=== PATIENT | female | born 1965 | race Caucasian/White ===

== ENCOUNTER 2017-08-19 17:48 | Emergency (ER) | payer SELFPAY ==
[~2017-08-19] VITALS: Ht 165.1 cm; Wt 76.7 kg
[~2017-08-19 17:48] MED LIST: ASPI325T PO; ATOR10 PO; BACL10TA PO; CLON1 PO; CLOP75 PO; DILA8TAB4 PO; MACR100C PO; METH10TA PO; METO50CR PO; PROM25TA5 PO; ZOFR4TAB3 PO
[2017-08-19 17:52] VITALS: BP 172/78; PULSE 99; RESP 20; TEMP 100.3; O2SAT 98
[2017-08-19] MEDS ORDERED: SERO50TA PO (18:13)
[2017-08-19] MEDS ORDERED: GABA300C5 PO (18:13)
[2017-08-19] MEDS ORDERED: LISI-515 PO ×2 (18:13→18:43)
[2017-08-19] MEDS ORDERED: TRAM50TA PO (18:13)
[2017-08-19] MEDS ORDERED: VIST50CA PO (18:13)
[2017-08-19] MEDS ORDERED: WELLTAB39 PO (18:13)
[2017-08-19 18:32] VITALS: BP 99/71; PULSE 88; RESP 22; O2SAT 97
[2017-08-19] MEDS ORDERED: AMOX500T PO (18:43)
--- NOTE | 2017-08-19 18:45 | PD ---
HPI . The patient's chief complaint to me was high blood pressure Chief Complaint: Anxiety Time Seen by Provider: 18:34 Travel History International Travel<30 days: No Contact w/Intl Traveler<30days: No Traveled to known affect area: No History of Present Illness HPI This patient presents with multiple complaints. It is actually very difficult to follow her story. She has very pressured speech and flight of ideas as does her sister who is here with her. The patient reports that her son committed suicide 10 weeks ago. She states that she is scheduled to start a new job tomorrow. She states that she was seen at [facility] today and was told that her blood pressure was elevated at 140/90. The patient reports that she is on lisinopril for hypertension but that she does not currently have a primary care physician and does not currently have a prescription for lisinopril. She is requesting a refill for this. In addition, the patient is complaining with purulent rhinorrhea and a low- grade fever. She denies any significant nasal congestion. Lastly, the patient states that she's got a bad back. She states that she has her MRI results of her to prove this. She states that she needs a prescription for tramadol for her chronic back pain. The patient reports that she is concerned about taking too many nonsteroidal anti-inflammatory agents because of her hepatitis C. I am unable to determine whether or not there are any modifying factors. She is reporting 8/10 pain in her head. PFSH Past Medical History Autoimmune Disease: No Blood Disorders: No Anxiety: Yes Depression: Yes Heart Rhythm Problems: No Cancer: No Cardiac Catheterization: Yes Cardiovascular Problems: Yes High Cholesterol: Yes Chemotherapy: No Chest Pain: Yes Congestive Heart Failure: No Cerebrovascular Accident: Yes Coronary Artery Disease: Yes Diabetes: No Diminished Hearing: No Endocrine: No Gastrointestinal Disorders: Yes (ILEUS) GERD: Yes Genitourinary: Yes Hiatal Hernia: No Heparin Induced Thrombocytopen: No Hypertension: Yes Immune Disorder: No Implanted Vascular Access Dvce: No Kidney Stones: Yes Musculoskeletal: Yes (BULGING DISK, CHRONIC BACK PAIN, SCOLIOSIS) Neurologic: Yes Psychiatric: Yes Reproductive: No Respiratory: No Integumentary: Yes (CELLULITIS OF LEFT ANKLE) Migraines: Yes Radiation Therapy: No Renal Failure: No Thyroid Disease: No Ulcer: Yes (PEPTIC ) Tetanus Vaccination: > 5 Years Influenza Vaccination: Yes PNEUMOCCOCAL Vaccine (Year): 2 ?: Not Menopausal: Yes : 2 Para: 2 Past Surgical History Abdominal Surgery: Yes (CHOLECYSTECTOMY, APPENDECTOMY) Appendectomy: Yes Cardiac Surgery: No Cholecystectomy: Yes Coronary Artery Bypass Graft: No Ear Surgery: No Endocrine Surgery: No Eye Surgery: No Gynecologic Surgery: Yes (HYSTERECTOMY, OOPHRECTOMY) Hysterectomy: Yes Oral Surgery: Yes (TONSILLECTOMY) Thoracic Surgery: No Tonsillectomy: Yes Other Surgery: Yes (INFARCTION TO SPLEEN) Family History Family Myocardial Infarction: Yes Social History Alcohol Use: Yes Tobacco Use: Yes (1 PPD) Substance Use: No (HX OF) Allergies-Medications (Allergen,Severity, Reaction): Coded Allergies: Iodinated Contrast- Oral and IV Dye (Unverified Allergy, Severe, Anaphylaxis, 08/19/17) codeine (Unverified Allergy, Severe, RASH, 08/19/17) morphine (Unverified Allergy, Intermediate, Rash, 08/19/17) Reported Meds & Prescriptions Reported Meds & Active Scripts Active Reported Seroquel (Quetiapine Fumarate) 50 Mg Tab 50 Mg PO HS Vistaril (Hydroxyzine Pamoate) 50 Mg Cap 50 Mg PO TID Gabapentin 300 Mg Cap 300 Mg PO TID Wellbutrin Xl 24 HR (Bupropion HCl) 300 Mg Tab 300 Mg PO DAILY Tramadol (Tramadol HCl) 50 Mg Tab 50 Mg PO Q6H PRN Lisinopril 20 Mg Tab 20 Mg PO DAILY Review of Systems ROS Limitations: Poor Historian Except as stated in HPI: all other systems reviewed are Neg General / Constitutional: Positive: Fever HENT: Positive: Headaches, Rhinorrhea (purulent) Musculoskeletal: Positive: Pain (chronic back pain) Psychiatric: Positive: Anxiety, Depression Physical Exam Exam Limitations: Poor Historian, Other: (psychomotor agitation) Narrative GENERAL: This patient cannot be still. She is jumping from one subject to another when talking to me. Her sister is about the same. SKIN: warm/dry. HEAD: Normocephalic. Atraumatic. EYES: Pupils equal and round. No scleral icterus. No injection or drainage. ENT: No nasal bleeding or discharge. Mucous membranes pink and moist. NECK: Trachea midline. Full range of motion without pain.. CARDIOVASCULAR: Regular rate and rhythm. Heart sounds are normal. RESPIRATORY: No accessory muscle use. Clear to auscultation. Breath sounds equal bilaterally. GASTROINTESTINAL: Abdomen soft. Nontender. Bowel sounds present. Nondistended. MUSCULOSKELETAL: No obvious deformities. NEUROLOGICAL: Awake and alert. No obvious cranial nerve deficits. Motor grossly within normal limits. Normal speech. PSYCHIATRIC: Appropriate mood and affect; insight and judgment normal. Data Data Last Documented VS Vital Signs Date Time Temp Pulse Resp B/P (MAP) Pulse Ox O2 Delivery O2 Flow Rate FiO2 08/19/17 18:32 88 22 99/71 (80) 97 Room Air 08/19/17 17:52 100.3 MDM Medical Decision Making Medical Screen Exam Complete: Yes Emergency Medical Condition: Yes Differential Diagnosis Differential diagnosis includes but is not limited to influenza, upper respiratory infection, bronchitis, pneumonia Differential diagnosis includes but is not limited to muscular low back pain, DDD, spinal stenosis, epidural abscess, sciatica, kidney infection or stone. My differential diagnosis of high blood pressure includes but is not limited to "white coat syndrome," anxiety, essential hypertension, hypertensive emergency. Narrative Course This patient presents with several requests. She would like a refill of her lisinopril which I have agreed to. She would like a prescription for tramadol for her chronic back pain. I have explained to her that this will need to come from her primary care provider. She is confused by this stating that she has received prescriptions for tramadol in the emergency department before. I have explained to the patient that it is acetaminophen that she should avoid because of her chronic liver disease. She is also requesting an antibiotic for her purulent nasal drainage. She is requesting one of the free antibiotics from [facility]. I will give her a prescription for amoxicillin. Diagnosis Primary Impression: Nasal congestion Additional Impressions: Hypertension Qualified Codes: I10 - Essential (primary) hypertension Back pain, chronic Qualified Codes: M54.5 - Low back pain; G89.29 - Other chronic pain Patient Instructions: Chronic Back Pain (ED), Chronic Hypertension (DC), General Instructions, Sinusitis (ED) Med/Other Pt SpecificInfo: Prescription(s) given Scripts Amoxicillin (Amoxicillin) 500 Mg Tab 500 MG PO TID for Infection, #30 TAB 0 Refills Prov: Pamela Herrera MD 08/19/17 Lisinopril (Lisinopril) 20 Mg Tab 20 MG PO DAILY, #30 TAB 0 Refills Prov: Pamela Herrera MD 08/19/17 Disposition: 01 DISCHARGE HOME Condition: Stable Pamela Herrera MD Aug 19, 2017 18:45
[2017-08-19 19:11] VITALS: BP 106/74; TEMP 98.7
[2017-09-24] MEDS ORDERED: IBUP800T23 PO (16:16)
== END 2017-08-19 19:12 | disposition home or self-care (01) ==
LOC: PHED 17:48
DX: I10 Essential (primary) hypertension (principal); R09.81 Nasal congestion; M54.5 Low back pain; E78.00 Pure hypercholesterolemia, unspecified; K21.9 Gastro-esophageal reflux disease without esophagitis
CPT/HCPCS: 99284

== ENCOUNTER 2017-09-24 14:25 | Emergency (ER) | payer SELFPAY ==
[~2017-09-24] VITALS: Ht 165.1 cm; Wt 83.0 kg
[~2017-09-24 14:25] MED LIST changes: +AMOX500T PO; -ASPI325T PO; -ATOR10 PO; -BACL10TA PO; -CLON1 PO; -CLOP75 PO; -DILA8TAB4 PO; +GABA300C5 PO; +LISI-515 PO; -MACR100C PO; -METH10TA PO; -METO50CR PO; -PROM25TA5 PO; +SERO50TA PO; +TRAM50TA PO; +VIST50CA PO; +WELLTAB39 PO; -ZOFR4TAB3 PO
[2017-09-24 14:31] VITALS: BP 134/71; PULSE 74; RESP 18; TEMP 98.6; O2SAT 98
[2017-09-24] MEDS ORDERED: ACETAMINOPHEN/HYDROcodone 325 MG/5 MG TAB PO ONE (15:00)
--- NOTE | 2017-09-24 15:00 | PD ---
HPI Chief Complaint: Fall Time Seen by Provider: 14:46 Travel History International Travel<30 days: No Contact w/Intl Traveler<30days: No Traveled to known affect area: No History of Present Illness HPI 52-year-old female presents to the emergency department with low back pain after a mechanical fall that occurred 2 hours ago. States that she was pushing a wheelchair with her friend and she slipped and fell landing on a rock at the end of a ramp. Patient says she has moderate pain in the mid lumbar region and burning pain of the right paraspinous muscles. She has taken 800 mg ibuprofen and applied a lidocaine patch to her lower back without relief. She denies fever , chills, history of IV drug use, saddle anesthesia, loss of bowel or bladder function, or lower extremity weakness. Patient has a history of "right sided stroke" years ago and a hysterectomy. She also has a history of 'fracturing her tailbone'. PFSH Past Medical History Autoimmune Disease: No Blood Disorders: No Anxiety: Yes Depression: Yes Heart Rhythm Problems: No Cancer: No Cardiac Catheterization: Yes Cardiovascular Problems: Yes High Cholesterol: Yes Chemotherapy: No Chest Pain: Yes Congestive Heart Failure: No Cerebrovascular Accident: Yes Coronary Artery Disease: Yes Diabetes: No Diminished Hearing: No Endocrine: No Gastrointestinal Disorders: Yes (ILEUS) GERD: Yes Genitourinary: Yes Hiatal Hernia: No Heparin Induced Thrombocytopen: No Hypertension: Yes Immune Disorder: No Implanted Vascular Access Dvce: No Kidney Stones: Yes Musculoskeletal: Yes (BULGING DISK, CHRONIC BACK PAIN, SCOLIOSIS) Neurologic: Yes Psychiatric: Yes Reproductive: No Respiratory: No Integumentary: Yes (CELLULITIS OF LEFT ANKLE) Migraines: Yes Radiation Therapy: No Renal Failure: No Thyroid Disease: No Ulcer: Yes (PEPTIC ) Tetanus Vaccination: Unknown PNEUMOCCOCAL Vaccine (Year): 2 ?: Not Menopausal: Yes : 2 Para: 2 Past Surgical History Abdominal Surgery: Yes (CHOLECYSTECTOMY, APPENDECTOMY) Appendectomy: Yes Cardiac Surgery: No Cholecystectomy: Yes Coronary Artery Bypass Graft: No Ear Surgery: No Endocrine Surgery: No Eye Surgery: No Gynecologic Surgery: Yes (HYSTERECTOMY, OOPHRECTOMY) Hysterectomy: Yes Oral Surgery: Yes (TONSILLECTOMY) Thoracic Surgery: No Tonsillectomy: Yes Other Surgery: Yes (INFARCTION TO SPLEEN) Family History Family Myocardial Infarction: Yes Social History Alcohol Use: No Tobacco Use: Yes (e-cig) Substance Use: No (HX OF) Allergies-Medications (Allergen,Severity, Reaction): Coded Allergies: Iodinated Contrast- Oral and IV Dye (Unverified Allergy, Severe, Anaphylaxis, 08/19/17) codeine (Unverified Allergy, Severe, RASH, 08/19/17) morphine (Unverified Allergy, Intermediate, Rash, 08/19/17) Reported Meds & Prescriptions Reported Meds & Active Scripts Active Ibuprofen 800 Mg Tab 800 Mg PO TID 3 Days Robaxin (Methocarbamol) 500 Mg Tab 500 Mg PO TID 3 Days Lisinopril 20 Mg Tab 20 Mg PO DAILY Reported Vistaril (Hydroxyzine Pamoate) 50 Mg Cap 50 Mg PO TID Wellbutrin Xl 24 HR (Bupropion HCl) 300 Mg Tab 300 Mg PO DAILY Review of Systems Except as stated in HPI: all other systems reviewed are Neg Physical Exam Narrative GENERAL: Well-developed well-nourished in mild distress SKIN: Focused skin assessment warm/dry. HEAD: Atraumatic. Normocephalic. EYES: Pupils equal and round. No scleral icterus. No injection or drainage. ENT: No nasal bleeding or discharge. Mucous membranes pink and moist. NECK: Trachea midline. No JVD. CARDIOVASCULAR: Regular rate and rhythm. No murmur appreciated. RESPIRATORY: No accessory muscle use. Clear to auscultation. Breath sounds equal bilaterally. GASTROINTESTINAL: Abdomen soft, non-tender, nondistended. MUSCULOSKELETAL: No obvious deformities. No clubbing. No cyanosis. No edema. BACK: No CVA tenderness. No rash. Mild point tenderness on palpation of the spine and right paraspinous muscles in the L3 region NEUROLOGICAL: Awake and alert. No obvious cranial nerve deficits. Motor grossly within normal limits. Normal speech. DTRs, sensation, motor intact. PSYCHIATRIC: Appropriate mood and affect; insight and judgment normal. Data Data Last Documented VS Vital Signs Date Time Temp Pulse Resp B/P (MAP) Pulse Ox O2 Delivery O2 Flow Rate FiO2 09/24/17 14:31 98.6 74 18 134/71 (92) [address] Lumb Spine W/O Contrast (09/24/17 ) Acetamin-Hydrocod 325-5 Mg ([place] 5-325 (09/24/17 15:00) Ed Discharge Order (09/24/17 16:19) [facility] Medical Decision Making Medical Screen Exam Complete: Yes Emergency Medical Condition: Yes Differential Diagnosis Lumbar contusion versus fracture versus strain Narrative Course 52 y/f with low back pain after a mechanical fall that occurred earlier today. States that she was pushing a wheelchair down a ramp today and fell onto a rock at the bottom of the ramp. Denies red flag symptoms. Physical exam demonstrates TTP of the lumbar spine and paraspinous muscles. Neurovascularly intact. Imaging ordered secondary to trauma: no acute process. Patient states that she has taken hydrocodone previously for an ankle fracture and does not have reactions to this medication. Administered today for pain relief. Muscle relaxers and Ibuprofen Rx for acute lumbago. I explained to patient that it is not appropriate to Rx BP medications from the ER but pt states she just started a new job and will obtain a PCP in a month when her insurance takes effect. Adviser for her to return if she develops worsening pain or red flag symptoms. Diagnosis Primary Impression: Lumbar contusion Qualified Codes: S30.0XXA - Contusion of lower back and pelvis, initial encounter Additional Impressions: Medication refill Hypertension Qualified Codes: I10 - Essential (primary) hypertension Referrals: Primary Care Physician Additional Instructions: Perform light stretches of the lower back and legs, and alternate heat and ice packs. If you develop increased pain, weakness, fever, chills, or bowel or bladder issues, return to the ED for further treatment and evaluation. Follow up with your primary care physician in 2-3 days. Scripts Ibuprofen (Ibuprofen) 800 Mg Tab 800 MG PO TID for Arthritis Pain for 3 Days, TAB 0 Refills Prov: Gene Quintanilla MD 09/24/17 Methocarbamol (Robaxin) 500 Mg Tab 500 MG PO TID for Muscle Spasm for 3 Days, TAB 0 Refills Prov: Gene Quintanilla MD 09/24/17 Lisinopril (Lisinopril) 20 Mg Tab 20 MG PO DAILY, #30 TAB 0 Refills Prov: Gene Quintanilla MD 09/24/17 Disposition: 01 DISCHARGE HOME Condition: Stable Tasha Worley Sep 24, 2017 15:00
--- NOTE | 2017-09-24 15:58 | RADRPT ---
EXAM DATE/TIME: 09/24/2017 15:17 [facility] COMPARISON: No previous studies available for comparison. INDICATIONS : Trauma, fell, low back pain. RADIATION DOSE: 39.74 CTDIvol (mGy) MEDICAL HISTORY : Gastroesophageal reflux disease. Myocardial infarction. Cerebrovascular disease.Renal stones. Hypert ension. Scoliosis. SURGICAL HISTORY : Appendectomy. Cholecystectomy. ENCOUNTER: Initial ACUITY: 1 day PAIN SCALE: 6/10 LOCATION: Lumbar spine. TECHNIQUE: Volumetric scanning of the lumbar spine was performed. Multiplanar reconstructions in the sagittal, coronal and oblique axial planes were performed. Using automated exposure control and adjustment of the mA and/or kV according to patient size, radiation dose was kept as low as reasonably achievable t o obtain optimal diagnostic quality images. DICOM format image data is available electronically for review and comparison. FINDINGS: Moderate severity curvature of the lower lumbar spine convex towards the left. No evidence of spondy lolisthesis. Vertebral body height is maintained. There is prominent bridging anterior paravertebra l ossification at L5-S1 and nonbridging paravertebral ossification from T12-L5. Prominent amount of sclerosis in the left anterior superior angle of the L2 vertebral body with moderate size anterior os teophyte. Moderate severity hypertrophic changes in the facet joints L4-5 and L5-S1. Vacuum phenome non in the interspace at L4-5 with moderate interspace narrowing. T12-L1: No fracture seen. The bony neural foramina are patent. L1-L2: No fracture seen. The bony neural foramina are patent. L2-L3: No fracture seen. Mild bulging of the disc into the left neural foramen. The bony neural foramina a re patent. L3-L4: No fracture seen. Mild bulging of the disc into the neural foramina bilaterally without central comp onent. The bony neural foramina are patent. L4-L5: No fracture seen. Broad-based bulging of the disc flattens the ventral margin of the thecal sac. L5-S1: No fracture seen. The bony neural foramina are patent. CONCLUSION: No evidence of fracture or spondylolisthesis. Multilevel degenerative changes throughout the lumbar spine with moderate left lower lumbar scoliosis and prominent sclerosis anterior superior and plate o f L2. Dany Mcclelland MD on September 24, 2017 at 15:52 Board Certified Radiologist. This report was verified electronically.
[2017-09-24] MEDS ORDERED: ROBA500T PO (16:16)
[2017-09-24] MEDS ORDERED: LISI-515 PO (16:16)
[2017-09-24] MEDS ORDERED: IBUP1TAB7 PO (16:16)
== END 2017-09-24 16:28 | disposition home or self-care (01) ==
LOC: PHEFT 14:25
DX: S30.0XXA Contusion of lower back and pelvis, initial encounter (principal); I10 Essential (primary) hypertension; W01.198A Fall on same level from slipping, tripping and stumbling with subsequent striking against other object, initial encounter; Y93.F9 Activity, other caregiving; Z76.0 Encounter for issue of repeat prescription
CPT/HCPCS: 72131; 99284

== ENCOUNTER 2018-01-07 15:01 | Observation (INO) | payer SELFPAY ==
[~2018-01-07] VITALS: Ht 165.1 cm; Wt 82.4 kg
[~2018-01-07 15:01] MED LIST changes: -AMOX500T PO; -GABA300C5 PO; +IBUP1TAB7 PO; +ROBA500T PO; -SERO50TA PO; -TRAM50TA PO
[2018-01-07 15:14] VITALS: BP 162/90; PULSE 90; RESP 16; TEMP 98.7; O2SAT 98
[2018-01-07] MEDS ORDERED: CLON0.2T PO (16:32)
--- NOTE | 2018-01-07 16:38 | PD ---
HPI Chief Complaint: Chest Pain Time Seen by Provider: 16:26 Travel History International Travel<30 days: No Contact w/Intl Traveler<30days: No Traveled to known affect area: No History of Present Illness HPI The patient was seen and examined in the presence of the nurse. This patient complains of chest pain. Location is center sternum. Duration is 2-3 hours. Symptoms not exertional. Feels like a pressure sensation. No pleuritic component. Patient had 2 stents placed 2-1/2 years ago and no testing since. She quit smoking 6 months ago. Doesn't follow up with any physician. She also complains of some congestion and sore throat and postnasal drip and cough. No alleviating factors. No exacerbating factors. Symptoms severity is moderate. PFSH Past Medical History Autoimmune Disease: No Blood Disorders: No Anxiety: Yes Depression: Yes Heart Rhythm Problems: No Cancer: No Cardiac Catheterization: Yes Cardiovascular Problems: Yes High Cholesterol: Yes Chemotherapy: No Chest Pain: Yes Congestive Heart Failure: No Cerebrovascular Accident: Yes Coronary Artery Disease: Yes Diabetes: No Diminished Hearing: No Endocrine: No Gastrointestinal Disorders: Yes (ILEUS) GERD: Yes Genitourinary: Yes Hiatal Hernia: No Heparin Induced Thrombocytopen: No Hypertension: Yes Immune Disorder: No Implanted Vascular Access Dvce: No Kidney Stones: Yes Musculoskeletal: Yes (BULGING DISK, CHRONIC BACK PAIN, SCOLIOSIS) Neurologic: Yes Psychiatric: Yes Reproductive: No Respiratory: No Integumentary: Yes (CELLULITIS OF LEFT ANKLE) Migraines: Yes Radiation Therapy: No Renal Failure: No Thyroid Disease: No Ulcer: Yes (PEPTIC ) PNEUMOCCOCAL Vaccine (Year): 2 ?: Not Menopausal: Yes : 2 Para: 2 Past Surgical History Abdominal Surgery: Yes (CHOLECYSTECTOMY, APPENDECTOMY) Appendectomy: Yes Cardiac Surgery: No Cholecystectomy: Yes Coronary Artery Bypass Graft: No Ear Surgery: No Endocrine Surgery: No Eye Surgery: No Gynecologic Surgery: Yes (HYSTERECTOMY, OOPHRECTOMY) Hysterectomy: Yes Oral Surgery: Yes (TONSILLECTOMY) Thoracic Surgery: No Tonsillectomy: Yes Other Surgery: Yes (INFARCTION TO SPLEEN) Family History Family Myocardial Infarction: Yes Social History Alcohol Use: No Tobacco Use: Yes (e-cig) Substance Use: No (HX OF) Allergies-Medications (Allergen,Severity, Reaction): Coded Allergies: Iodinated Contrast- Oral and IV Dye (Unverified Allergy, Severe, Anaphylaxis, 01/07/18) codeine (Unverified Allergy, Severe, RASH, 01/07/18) morphine (Unverified Allergy, Intermediate, Rash, 01/07/18) Reported Meds & Prescriptions Reported Meds & Active Scripts Active Reported Clonidine (Clonidine HCl) 0.2 Mg Tab 0.2 Mg PO HS Wellbutrin Xl 24 HR (Bupropion HCl) 300 Mg Tab 300 Mg PO DAILY Review of Systems General / Constitutional: No: Fever Eyes: No: Visual changes HENT: Positive: Sore Throat, Congestion, No: Headaches Cardiovascular: Positive: Chest Pain or Discomfort Respiratory: Positive: Cough, No: Shortness of Breath Gastrointestinal: No: Abdominal Pain Genitourinary: No: Dysuria Musculoskeletal: No: Pain Skin: No Rash Neurologic: No: Weakness Psychiatric: No: Depression Endocrine: No: Polydipsia Hematologic/Lymphatic: No: Easy Bruising Physical Exam Narrative GENERAL: Well-nourished, well-developed patient in no apparent distress. SKIN: Focused skin assessment reveals no rash and nodules. Skin is Warm and dry. HEAD: Atraumatic. Normocephalic. EYES: Pupils equal and round. No scleral icterus. No injection or drainage. ENT: No nasal bleeding or discharge. Mucous membranes pink and moist. NECK: Trachea midline. No JVD. CARDIOVASCULAR: Regular rate and rhythm. No murmur appreciated. RESPIRATORY: No accessory muscle use. Clear to auscultation. Breath sounds equal bilaterally. GASTROINTESTINAL: Abdomen soft, non-tender, nondistended. Hepatic and splenic margins not palpable. MUSCULOSKELETAL: No obvious deformities. No clubbing. No cyanosis. No edema. NEUROLOGICAL: Awake and alert. No obvious cranial nerve deficits. Motor grossly within normal limits. Normal speech. PSYCHIATRIC: Appropriate mood and affect; insight and judgment normal. Data Data Last Documented VS Vital Signs Date Time Temp Pulse Resp B/P (MAP) Pulse Ox O2 Delivery O2 Flow Rate FiO2 01/07/18 17:08 75 16 01/07/18 17:08 96 01/07/18 15:14 98.7 162/90 (114) Orders Orders Electrocardiogram (01/07/18 16:32) Basic Metabolic Panel (Bmp) (01/07/18 16:32) Ckmb (Isoenzyme) Profile (01/07/18 16:32) Complete Blood Count With Diff (01/07/18 16:32) Prothrombin Time / Inr (Pt) (01/07/18 16:32) Act Partial Throm Time (Ptt) (01/07/18 16:32) Troponin I (01/07/18 16:32) Chest, Single Ap (01/07/18 16:32) Ecg Monitoring (01/07/18 16:32) Iv Access Insert/Monitor (01/07/18 16:32) Oximetry (01/07/18 16:32) Aspirin Chew (Aspirin Chew) (01/07/18 16:45) Sodium Chloride 0.9% Flush (Ns Flush) (01/07/18 16:45) Promethazine Inj (Phenergan Inj) (01/07/18 17:15) CKMB (01/07/18 16:55) CKMB% (01/07/18 16:55) Admit Order (Ed Use Only) (01/07/18 17:48) Labs Laboratory Tests Test 01/07/18 16:55 White Blood Count 6.1 TH/MM3 Red Blood Count 4.44 MIL/MM3 Hemoglobin 13.4 GM/DL Hematocrit 40.7 % Mean Corpuscular Volume 91.7 FL Mean Corpuscular Hemoglobin 30.3 PG Mean Corpuscular Hemoglobin Concent 33.0 % Red Cell Distribution Width 12.1 % Platelet Count 278 TH/MM3 Mean Platelet Volume 7.1 FL Neutrophils (%) (Auto) 58.3 % Lymphocytes (%) (Auto) 27.5 % Monocytes (%) (Auto) 9.0 % Eosinophils (%) (Auto) 2.3 % Basophils (%) (Auto) 2.9 % Neutrophils # (Auto) 3.5 TH/MM3 Lymphocytes # (Auto) 1.7 TH/MM3 Monocytes # (Auto) 0.6 TH/MM3 Eosinophils # (Auto) 0.1 TH/MM3 Basophils # (Auto) 0.2 TH/MM3 CBC Comment DIFF FINAL Differential Comment Prothrombin Time 11.7 SEC Prothromb Time International Ratio 1.2 RATIO Activated Partial Thromboplast Time 24.0 SEC Blood Urea Nitrogen 32 MG/DL Creatinine 0.81 MG/DL Random Glucose 89 MG/DL Calcium Level 8.9 MG/DL Sodium Level 135 MEQ/L Potassium Level 4.4 MEQ/L Chloride Level 106 MEQ/L Carbon Dioxide Level 22.1 MEQ/L Anion Gap 7 MEQ/L Estimat Glomerular Filtration Rate 74 ML/MIN Total Creatine Kinase 115 U/L Creatine Kinase MB 2.0 NG/ML Troponin I 0.02 NG/ML MDM Medical Decision Making Medical Screen Exam Complete: Yes Emergency Medical Condition: Yes Medical Record Reviewed: Yes Differential Diagnosis Differential diagnosis includes [place], angina, pericarditis, pleurisy, GERD, anxiety. Narrative Course I have reviewed the patient's electronic medical record. Reviewed her heart catheterization from July 2015 where 2 stents were placed IV placed I reviewed the EKG which is normal I reviewed the chest x-ray which shows some mild interstitial prominence Extended cardiac monitoring shows sinus rhythm without ectopy or ST elevation CBC is normal Metabolic profile is normal CK is normal Troponin is normal Coagulation studies are normal I gave her 4 baby aspirin Workup here is negative. On recheck of the patient she is not having chest pain She does have known disease. She will be a 23 hour observation on telemetry in the chest pain center to rule out cardiac cause of her symptoms. Hospitalist has been paged and I will discuss the case with her Diagnosis Primary Impression: Chest pain Qualified Codes: R07.9 - Chest pain, unspecified Additional Impression: CAD (coronary artery disease) Qualified Codes: I25.10 - Atherosclerotic heart disease of [place] coronary artery without angina pectoris; I25.84 - Coronary atherosclerosis due to calcified coronary lesion Admitting Information Admitting Physician Requests: Observation Hussain Ahuja MD Jan 07, 2018 16:38
[2018-01-07] MEDS ORDERED: ASPIRIN 81 MG CHEW TAB PO ONE (16:45)
[2018-01-07] MEDS ORDERED: SODIUM CHLORIDE 0.9% FLUSH 10 ML FLUSH IVF PRN (16:45)
[2018-01-07 17:05] LABS: AUTOMATED NEUTROPHIL # 3.5 TH/MM3 (1.8-7.7); BASOPHIL # 0.2 TH/MM3 (0-0.2); BASOPHIL % 2.9 % (0.0-2.0); EOSINOPHIL # 0.1 TH/MM3 (0-0.4); EOSINOPHIL % 2.3 % (0.0-4.0); HEMATOCRIT 40.7 % (35.0-46.0); HEMOGLOBIN 13.4 GM/DL (11.6-15.3); LYMPH % 27.5 % (9.0-44.0); LYMPHOCYTE # 1.7 TH/MM3 (1.0-4.8); MEAN CELL VOLUME 91.7 FL (80.0-100.0); MEAN CORPUSCULAR HEMOGLOBIN 30.3 PG (27.0-34.0); MEAN PLATELET VOLUME 7.1 FL (7.0-11.0); MONOCYTE # 0.6 TH/MM3 (0-0.9); NEUT % 58.3 % (16.0-70.0); PLATELET COUNT 278 TH/MM3 (150-450); RED BLOOD COUNT 4.44 MIL/MM3 (4.00-5.30); RED CELL DISTRIBUTION WIDTH 12.1 % (11.6-17.2); WHITE BLOOD COUNT 6.1 TH/MM3 (4.0-11.0)
[2018-01-07 17:08] VITALS: O2SAT 96
[2018-01-07 17:15] LABS: CHLORIDE 106 MEQ/L (98-107); SODIUM (NA) 135 MEQ/L (136-145)
[2018-01-07] MEDS ORDERED: PROMETHAZINE INJ 25 MG/ML VIAL IM ONE (17:15)
[2018-01-07 17:18] LABS: BICARBONATE 22.1 MEQ/L (21.0-32.0); CALCIUM 8.9 MG/DL (8.5-10.1); GLUCOSE,RANDOM 89 MG/DL (74-106)
[2018-01-07 17:19] LABS: BLOOD UREA NITROGEN 32 MG/DL (7-18)
[2018-01-07 17:20] LABS: INTERNATIONAL NORMALIZED RATIO 1.2 RATIO; PROTHROMBIN TIME - PATIENT 11.7 SEC (9.8-11.6)
[2018-01-07 17:22] LABS: CREATININE 0.81 MG/DL (0.50-1.00); GLOMERULAR FILTRATION RATE 74 ML/MIN (>89)
[2018-01-07 17:26] LABS: TROPONIN I 0.02 NG/ML (0.02-0.05)
--- NOTE | 2018-01-07 17:39 | RADRPT ---
EXAM DATE/TIME: 01/07/2018 17:06 [facility] COMPARISON: CHEST SINGLE AP, July 02, 2015, 13:41. INDICATIONS : Cough, chest congestion, chest pain for 3 days MEDICAL HISTORY : Gastroesophageal reflux disease. Myocardial infarction. Cerebrovascular disease.Renal stones. Hyperte nsion. Scoliosis. SURGICAL HISTORY : Appendectomy. Cholecystectomy. Cardiac stent ENCOUNTER: Initial ACUITY: 3 days PAIN SCORE: 10/10 LOCATION: Bilateral chest FINDINGS: Normal size heart with mild interstitial prominence. No consolidation. No pneumothorax. The portion of the bony skeleton visualized is unremarkable. CONCLUSION: Interstitial prominence normal-sized heart. Considerations include both cardiac and noncardiac sources. Yovanny Barone MD FACR on January 07, 2018 at 17:36 Board Certified Radiologist. This report was verified electronically.
[2018-01-07 18:21] VITALS: BP 126/70; PULSE 70; RESP 16; O2SAT 100
[2018-01-07] MEDS ORDERED: SODIUM CHLORIDE 0.9% FLUSH 10 ML FLUSH IV FLUSH PRN (18:30)
[2018-01-07] MEDS ORDERED: NITROGLYCERIN 0.4 MG SL 25 TABS/BTL SL PRN (18:30)
[2018-01-07 20:00] VITALS: PULSE 79
[2018-01-07] MEDS ORDERED: TRAM50TA PO (20:07)
[2018-01-07] MEDS: SODIUM CHLORIDE 0.9% FLUSH 10 ML FLUSH IV FLUSH SCH (20:08)
[2018-01-07] MEDS: ONDANSETRON HCL 4 MG/2 ML VIAL IV PUSH PRN (20:09)
[2018-01-07 20:45] LABS: TROPONIN I 0.02 NG/ML (0.02-0.05)
[2018-01-07] MEDS ORDERED: cloNIDine HCL 0.2 MG TAB PO SCH (21:00)
[2018-01-07] MEDS ORDERED: traMADol HCL 50 MG TAB PO ONE (21:00)
[2018-01-07 21:48] VITALS: O2SAT 97
[2018-01-08] VITALS: BP 87/52; PULSE 57; RESP 20; TEMP 96.2; O2SAT 93
[2018-01-08 00:49] LABS: TROPONIN I 0.02 NG/ML (0.02-0.05)
[2018-01-08 04:00] VITALS: BP 99/56; PULSE 59; RESP 16; TEMP 96.4; O2SAT 97
[2018-01-08 07:50] VITALS: BP 112/64; PULSE 75; RESP 20; TEMP 96.1; O2SAT 98
[2018-01-08 08:00] VITALS: PULSE 67
[2018-01-08] MEDS: ONDANSETRON HCL 4 MG/2 ML VIAL IV PUSH PRN (08:40)
[2018-01-08] MEDS ORDERED: buPROPion HCL 150 MG SUSTAINED RELEASE TAB PO SCH (09:00)
[2018-01-08] MEDS ORDERED: ASPIRIN 325 MG TAB PO SCH (09:00)
[2018-01-08] MEDS ORDERED: traMADol HCL 50 MG TAB PO PRN (09:30)
[2018-01-08] MEDS: SODIUM CHLORIDE 0.9% FLUSH 10 ML FLUSH IV FLUSH SCH (09:47)
[2018-01-08] MEDS ORDERED: PROMETHAZINE HCL 25 MG TAB PO ONE (11:30)
[2018-01-08 11:50] VITALS: BP 128/70; PULSE 72; RESP 20; TEMP 96.4; O2SAT 100
--- NOTE | 2018-01-08 12:40 | RADRPT ---
EXAM DATE/TIME: 01/08/2018 11:03 [facility] COMPARISON: No previous studies available for comparison. INDICATIONS : Substernal chest pain. Angina. DOSE: 26.1 mCi Tc99m Myoview at stress. 8.6 mCi Tc99m Myoview at rest. 0.4 mg Lexiscan STRESS SYMPTOMS: Dyspnea, chest pain and nausea. MEDICATIONS: 1.) 100 mg Aminophylline IV EJECTION FRACTION: 56% MEDICAL HISTORY : Myocardial infarction. Hypertension. Gastroesophageal reflux disease. SURGICAL HISTORY : Coronary artery stent. Hysterectomy. Appendectomy. ENCOUNTER: Initial ACUITY: 3 days PAIN SCALE: 6/10 LOCATION: Substernal chest TECHNIQUE: The patient underwent pharmacologic stress with infusion of prescribed dose. Continuous ECG tracing was monitored during stress. Gated SPECT imaging was performed after stress and conventional SPECT i maging was performed at rest. The examination was performed on a SPECT/CT scanner, both attenuation and non-corrected datasets were reviewed. FINDINGS: DISTRIBUTION: The maximum perfused segment at stress is in the lateral wall. PERFUSION STUDY: The pattern of perfusion at stress is within normal limits. GATED STUDY: There is intact wall motion and thickening without hypokinetic or dyskinetic segments. CONCLUSION: Normal examination. RISK CATEGORY: Low (<1% Annual Mortality Rate) Russ Polo MD on January 08, 2018 at 12:36 Board Certified Radiologist. This report was verified electronically.
--- NOTE | 2018-01-08 13:09 | HHI.HP ---
[facility] Service [facility] Primary Care Physician No Primary Care Physician Admission Diagnosis Chest pain Diagnoses: (1) Chest pain Diagnosis: Principal Chief Complaint: Chest pain Travel History International Travel<30 Days: No Contact w/Intl Traveler <30 Da: No Traveled to Known Affected Are: No History of Present Illness This is a 52-year-old patient with a known medical history of CVA, dyslipidemia CAD, hypertension and GERD who presented to the ED with complaints of chest pain. Patient states that yesterday afternoon around 2 PM patient developed a midsternal chest discomfort that radiated to the left arm and thru her back. Patient describe the chest pain as pressure-like in nature, felt like someone was sitting on her chest. Patient states that the pain would come and go for a couple minutes and was associated with nausea and vomiting with shortness of breath, denied any diaphoresis. Patient denies any alleviating or worsening factors. Patient states the pain lasted 2-3 hours and was relieved when given tramadol in the ED. Patient does admit to recent flulike symptoms for the past three days involving nausea and vomiting as well as cough. Denies any recent fever or chills. She does not follow with a visual presentation manager. Nor a PCP. After reviewing the chart patient does have a history of narcotic dependence. When patient was seen this morning she was requesting a cocktail of Phenergan and Ultram. She states that the Zofran wasn't effective for her nausea. Patient states that she quit smoking to six months ago. Review of Systems Constitutional: DENIES: Fever, Chills Respiratory: COMPLAINS OF: Cough, Shortness of breath Cardiovascular: COMPLAINS OF: Chest pain, Palpitations Gastrointestinal: COMPLAINS OF: Nausea, DENIES: Abdominal pain, Black stools, Bloody stools, Constipation, Diarrhea Musculoskeletal: DENIES: Joint pain Integumentary: DENIES: Abnormal pigmentation Hematologic/lymphatic: DENIES: Bruising Immunologic/allergic: DENIES: Eczema Neurologic: DENIES: Abnormal gait Psychiatric: COMPLAINS OF: Anxiety Except as stated in HPI: all other systems reviewed are Neg Past Family Social History Past Medical History Anxiety disorder Chronic nausea Chronic back pain Hypertension Narcotic dependency History of CVA 2014 History of ileus Hyperlipidemia GERD Past Surgical History Hysterectomy Cholecystectomy Splenic surgery Appendectomy Tonsillectomy Cardiac catheterization 2014 with history of cardiac stents 2 Reported Medications Active Zofran (Ondansetron HCl) 4 Mg Tab 4 Mg PO Q6HR PRN 10 Days Aspirin 81 Mg Chew 81 Mg CHEW DAILY 30 Days Reported Tramadol (Tramadol HCl) 50 Mg Tab 50 Mg PO Q4H PRN Clonidine (Clonidine HCl) 0.2 Mg Tab 0.2 Mg PO HS Wellbutrin Xl 24 HR (Bupropion HCl) 300 Mg Tab 300 Mg PO DAILY Allergies: Coded Allergies: Iodinated Contrast- Oral and IV Dye (Unverified Allergy, Severe, Anaphylaxis, 01/07/18) codeine (Unverified Allergy, Severe, RASH, 01/07/18) morphine (Unverified Allergy, Intermediate, Rash, 01/07/18) Active Ordered Medications Current Medications Medications (Trade) Dose Ordered Sig/Courtney Route Start Time Stop Time Status Last Admin (NS Flush) 2 ml UNSCH PRN IV FLUSH 01/07/18 18:30 (NS Flush) 2 ml BID IV FLUSH 01/07/18 21:00 01/08/18 09:47 (Zofran Inj) 4 mg Q6H PRN IV PUSH 01/07/18 18:30 01/08/18 08:40 (Nitrostat Sl) 0.4 mg Q5M PRN SL 01/07/18 18:30 (Aspirin) 325 mg DAILY PO 01/08/18 09:00 01/08/18 09:47 (Wellbutrin Sr) 300 mg DAILY PO 01/08/18 09:00 01/08/18 09:47 (Catapres) 0.2 mg HS PO 01/07/18 21:00 01/07/18 20:40 (Ultram) 50 mg Q6H PRN PO 01/08/18 09:30 01/08/18 09:47 Family History Paternal medical history significant for renal failure. Paternal medical history significant for kidney cancer. Sister had an ND. Social History Denies any current tobacco use. States she quit smoking six months ago. Denies any alcohol use. Denies any illicit drug use. Does state she did have a history of opiate abuse. Physical Exam Vital Signs Vital Signs Date Time Temp Pulse Resp B/P (MAP) Pulse Ox O2 Delivery O2 Flow Rate FiO2 01/08/18 07:50 96.1 75 20 112/64 (80) 98 01/08/18 04:00 96.4 59 16 99/56 (70) 97 01/08/18 00:00 96.2 57 20 87/52 (64) 93 01/07/18 21:48 97 21 01/07/18 20:00 79 01/07/18 18:43 01/07/18 18:21 70 16 126/70 (88) 100 Room Air 01/07/18 17:08 75 16 01/07/18 17:08 96 01/07/18 16:24 16 01/07/18 15:14 98.7 90 16 162/90 (114) 98 Physical Exam GENERAL: Well-nourished, well-developed patient in NAD. SKIN: Warm and dry. No rash. HEAD: Normocephalic. Atraumatic. EYES: Pupils equal and round. No scleral icterus. No injection or drainage. ENT: No nasal bleeding or discharge. Mucous membranes pink and moist. NECK: Supple. Trachea midline. CARDIOVASCULAR: Regular rate and rhythm. S1, S2 noted. No murmur appreciated. No reproducible chest pain to palpation. RESPIRATORY: No accessory muscle use. Clear to auscultation. Breath sounds equal bilaterally. GASTROINTESTINAL: Abdomen soft, non-tender, nondistended. Normoactive bowel sounds x4. MUSCULOSKELETAL: No obvious deformities. Extremities without clubbing, cyanosis , or edema. NEUROLOGICAL: Awake and alert. No obvious cranial nerve deficits. Motor grossly within normal limits. 5/5 muscle strength in bilateral upper and lower extremities. Normal speech. PSYCHIATRIC: Appropriate mood and affect; insight and judgment normal. Laboratory Laboratory Tests Test 01/07/18 16:55 01/07/18 20:10 01/08/18 00:00 White Blood Count 6.1 Red Blood Count 4.44 Hemoglobin 13.4 Hematocrit 40.7 Mean Corpuscular Volume 91.7 Mean Corpuscular Hemoglobin 30.3 Mean Corpuscular Hemoglobin Concent 33.0 Red Cell Distribution Width 12.1 Platelet Count 278 Mean Platelet Volume 7.1 Neutrophils (%) (Auto) 58.3 Lymphocytes (%) (Auto) 27.5 Monocytes (%) (Auto) 9.0 Eosinophils (%) (Auto) 2.3 Basophils (%) (Auto) 2.9 Neutrophils # (Auto) 3.5 Lymphocytes # (Auto) 1.7 Monocytes # (Auto) 0.6 Eosinophils # (Auto) 0.1 Basophils # (Auto) 0.2 CBC Comment DIFF FINAL Differential Comment Prothrombin Time 11.7 Prothromb Time International Ratio 1.2 Activated Partial Thromboplast Time 24.0 Blood Urea Nitrogen 32 Creatinine 0.81 Random Glucose 89 Calcium Level 8.9 Sodium Level 135 Potassium Level 4.4 Chloride Level 106 Carbon Dioxide Level 22.1 Anion Gap 7 Estimat Glomerular Filtration Rate 74 Total Creatine Kinase 115 114 103 Creatine Kinase MB 2.0 1.6 1.4 Troponin I 0.02 0.02 0.02 Result Diagram: 01/07/18 1655 01/07/18 1655 Imaging Last Impressions Myocardial Perfusion Scan Nuc Med 01/08/18 0000 Signed Impressions: Service Date/Time: January 11:03 - CONCLUSION: Normal examination. RISK CATEGORY: Low (<1%% Annual Mortality Rate) Russ Polo MD Chest X-Ray 01/07/18 1632 Signed Impressions: Service Date/Time: Sunday, January 07, 2018 17:06 - CONCLUSION: Interstitial prominence normal-sized heart. Considerations include both cardiac and noncardiac sources. Yovanny Barone MD FACR Septic Shock Reassessment Septic shock perfusion: reassessment completed Caprini VTE Risk Assessment Caprini VTE Risk Assessment: No/Low Risk (score <= 1) Caprini Risk Assessment Model Point Value = 1 Point Value = 2 Point Value = 3 Point Value = 5 Age 41-60 Minor surgery BMI > 25 kg/m2 Swollen legs Varicose veins or History of unexplained or recurrent spontaneous Oral contraceptives or hormone replacement Sepsis (< 1 month) Serious lung disease, including pneumonia (< 1 month) Abnormal pulmonary function Acute myocardial infarction Congestive heart failure (< 1 month) History of inflammatory bowel disease Medical patient at bed rest Age 61-74 Arthroscopic surgery Major open surgery (> 45 min) Laparoscopic surgery (> 45 min) Malignancy Confined to bed (> 72 hours) Immobilizing plaster cast Central venous access Age >= 75 History of VTE Family history of VTE Factor V Leiden Prothrombin [id number] Lupus anticoagulant Anticardiolipin antibodies Elevated serum homocysteine Heparin-induced thrombocytopenia Other congenital or acquired thrombophilia Stroke (< 1 month) Elective arthroplasty Hip, pelvis, or leg fracture Acute spinal cord injury (< 1 month) Prophylaxis Regimen Total Risk Factor Score Risk Level Prophylaxis Regimen 0-1 Low Early ambulation 2 Moderate Order ONE of the following: *Sequential Compression Device (SCD) *Heparin 5000 units SQ BID 3-4 Higher Order ONE of the following medications: *Heparin 5000 units SQ TID *Enoxaparin/Lovenox 40 mg SQ daily (WT < 150 kg, CrCl > 30 mL/min) *Enoxaparin/Lovenox 30 mg SQ daily (WT < 150 kg, CrCl > 10-29 mL/min) *Enoxaparin/Lovenox 30 mg SQ BID (WT < 150 kg, CrCl > 30 mL/min) AND/OR *Sequential Compression Device (SCD) 5 or more Highest Order ONE of the following medications: *Heparin 5000 units SQ TID (Preferred with Epidurals) *Enoxaparin/Lovenox 40 mg SQ daily (WT < 150 kg, CrCl > 30 mL/min) *Enoxaparin/Lovenox 30 mg SQ daily (WT < 150 kg, CrCl > 10-29 mL/min) *Enoxaparin/Lovenox 30 mg SQ BID (WT < 150 kg, CrCl > 30 mL/min) AND *Sequential Compression Device (SCD) Assessment and Plan Problem List: (1) Chest pain ICD Code: R07.9 - Chest pain Status: Acute Plan: Patient has been admitted for observation. Serial EKGs and serial troponins have been ordered for ruling out purposes. Troponin trends are flat. EKG reviewed showing controlled heart rate, no ST changes to indicate ischemia. Patient was placed on cardiac telemetry, no arrhythmias were noted during hospitalization. Chest x-ray reviewed showing some mild interstitial prominence. With a normal sized heart. CBC and BMP reviewed essentially unremarkable. Pain control with Ultram, states she takes this at home for headaches. Patient also complains of nausea, requesting Phenergan. States that Zofran does not work. Patient underwent a chemical nuclear stress test, report reviewed showing an EF of 56%. Low risk category. Normal examination. There was an intact wall motion and thickening with a hypokinetic or dyskinetic segments. Patient was updated about results. Patient will be discharged home. Chest pain has resolved. Encouraged to follow-up with PCP and outpatient setting. Patient was told symptoms persisted or worsened to return to the ED for further workup. Patient is agreeable to the plan and stable at this time. Problem Qualifiers (1) Chest pain: Qualified Codes: R07.9 - Chest pain, unspecified Joellen Guadalupe Jan 08, 2018 13:09
[2018-01-08] MEDS ORDERED: ASPI-516 CHEW (13:11)
--- NOTE | 2018-01-08 13:11 | HHI.DCPOC ---
Discharge Care Plan Diagnosis: (1) Chest pain Goals to Promote Your Health * To prevent worsening of your condition and complications * To maintain your health at the optimal level Directions to Meet Your Goals Take your medications as prescribed Follow your dietary instruction Follow activity as directed Keep your appointments as scheduled Take your immunizations and boosters as scheduled If your symptoms worsen call your PCP, if no PCP go to Urgent Care Center or Emergency Room Smoking is Dangerous to Your Health. Avoid second hand smoke Call the 24-hour hour crisis hotline for domestic abuse at Joellen Guadalupe Jan 08, 2018 13:11
[2018-01-08] MEDS ORDERED: ZOFR4TAB PO (13:35)
[2018-01-08] MEDS ORDERED: AMINOPHYLLINE INJ 250 MG/10 ML VIAL IV ONE (17:50)
[2018-01-08] MEDS ORDERED: REGADENOSON INJ 0.4 MG/5 ML SYR IV ONE (17:50)
--- NOTE | 2018-01-09 09:57 | EKG ---
Date Performed: 01/07/2018 Time Performed: 16:52:17 PTAGE: 52 years EKG: Sinus rhythm MINIMAL DIFFUSE ST ELEVATION, CONSIDER PERICARDITIS IN THE APPROPRIATE SETTING, NEW COMPARED TO THE PRIOR EKG. NORMAL ECG PREVIOUS TRACING : 07/02/2015 21.40 DOCTOR: Jono Valdovinos Interpretating Date/Time 01/12/2018 07:28:09
--- NOTE | 2018-01-09 10:02 | EKG ---
Date Performed: 01/07/2018 Time Performed: 18:33:04 PTAGE: 52 years EKG: Sinus rhythm MINIMAL DIFFUSE ST ELEVATION, CONSIDER PERICARDITIS NORMAL ECG Since PREVIOUS TRACING , no significant change noted PREVIOUS TRACIN01/07/2018 16.52 DOCTOR: Jono Valdovinos Interpretating Date/Time 01/09/2018 10:01:32
--- NOTE | 2018-01-09 10:02 | EKG ---
Date Performed: 01/07/2018 Time Performed: 21:47:12 PTAGE: 52 years EKG: Sinus rhythm MINIMAL DIFFUSE ST ELEVATION, CONSIDER PERICARDITIS NORMAL ECG Since PREVIOUS TRACING , no significant change noted PREVIOUS TRACIN01/07/2018 18.33 DOCTOR: Jono Valdovinos Interpretating Date/Time 01/09/2018 10:01:56
== END 2018-01-08 15:32 | disposition home or self-care (01) ==
LOC: PHED 15:01 → PH3A 17:49
PROVIDERS: ADMIT Hospitalist; ATTEND Hospitalist
DX: R07.9 Chest pain, unspecified (principal); I25.10 Atherosclerotic heart disease of native coronary artery without angina pectoris; I10 Essential (primary) hypertension; E78.5 Hyperlipidemia, unspecified; M41.9 Scoliosis, unspecified; K21.9 Gastro-esophageal reflux disease without esophagitis; M54.9 Dorsalgia, unspecified; G89.29 Other chronic pain; Z86.73 Personal history of transient ischemic attack (TIA), and cerebral infarction without residual deficits; Z72.0 Tobacco use; Z87.442 Personal history of urinary calculi; Z90.710 Acquired absence of both cervix and uterus; Z95.5 Presence of coronary angioplasty implant and graft
CPT/HCPCS: 71045; 78452; 80048; 82550; 82552; 84484; 85025; 85610; 85730; 93005; 93017; 96374; 96376; 99285; A9502; G0378; J0280; J2405; J2550; J2785; Q0169

== ENCOUNTER 2018-02-18 14:42 | Emergency (ER) | payer SELFPAY ==
[~2018-02-18] VITALS: Ht 162.6 cm; Wt 83.5 kg
[~2018-02-18 14:42] MED LIST changes: +ASPI-516 CHEW; +CLON0.2T PO; -IBUP1TAB7 PO; -LISI-515 PO; -ROBA500T PO; +TRAM50TA PO; -VIST50CA PO; +ZOFR4TAB PO
[2018-02-18 14:49] VITALS: BP 153/96; PULSE 84; RESP 18; TEMP 99.1; O2SAT 98
[2018-02-19] MEDS ORDERED: NASAL SPRAY (10:16)
== END 2018-02-18 17:41 | disposition left against medical advice (07) ==
LOC: PHED 14:42
DX: Z53.21 Procedure and treatment not carried out due to patient leaving prior to being seen by health care provider (principal)
CPT/HCPCS: 99281

== ENCOUNTER 2018-02-19 09:53 | Emergency (ER) | payer SELFPAY ==
[~2018-02-19] VITALS: Ht 162.6 cm; Wt 85.0 kg
[2018-02-19 10:11] VITALS: BP 147/77; PULSE 83; RESP 20; TEMP 98.3; O2SAT 97
[2018-02-19] MEDS ORDERED: NASAL SPRAY (10:16)
[2018-02-19] MEDS ORDERED: PROMETHAZINE INJ 25 MG/ML VIAL IM ONE (10:45)
--- NOTE | 2018-02-19 11:05 | PD ---
HPI Chief Complaint: Abdominal Pain Time Seen by Provider: 10:32 Travel History International Travel<30 days: No Contact w/Intl Traveler<30days: No Traveled to known affect area: No History of Present Illness HPI This 52-year-old female is complaining of abdominal pain. She has been vomiting for the last couple of days off and on. She has a history of hysterectomy and appendectomy. Her father had ulcerative colitis and her mother had Crohn's disease her son 6 months ago from colorectal cancer. He says she has been losing some weight. She has been nauseated. She was seen here about a month ago with chest pain. She has had intermittent vomiting. She has been on Phenergan in the past. Recently she has been taking Zofran but this is not working well for her. The pain she is having somewhat intermittent. She says she has lost some weight but is not sure how much. PFSH Past Medical History Autoimmune Disease: No Blood Disorders: No Anxiety: Yes Depression: Yes Heart Rhythm Problems: No Cancer: No Cardiac Catheterization: Yes Cardiovascular Problems: Yes High Cholesterol: Yes Chemotherapy: No Chest Pain: Yes Congestive Heart Failure: No Cerebrovascular Accident: Yes Coronary Artery Disease: Yes Diabetes: No Diminished Hearing: No Endocrine: No Gastrointestinal Disorders: Yes (ILEUS) GERD: Yes Genitourinary: Yes Headaches: Yes Hiatal Hernia: No Heparin Induced Thrombocytopen: No Hypertension: Yes Immune Disorder: No Implanted Vascular Access Dvce: No Kidney Stones: Yes Musculoskeletal: Yes (BULGING DISK, CHRONIC BACK PAIN, SCOLIOSIS) Neurologic: Yes Psychiatric: Yes Reproductive: No Respiratory: No Integumentary: Yes (CELLULITIS OF LEFT ANKLE) Migraines: Yes Radiation Therapy: No Renal Failure: No Thyroid Disease: No Ulcer: Yes (PEPTIC ) Tetanus Vaccination: Unknown PNEUMOCCOCAL Vaccine (Year): 2 ?: Not Menopausal: Yes : 2 Para: 2 Past Surgical History Abdominal Surgery: Yes (CHOLECYSTECTOMY, APPENDECTOMY) Appendectomy: Yes Cardiac Surgery: No Cholecystectomy: Yes Coronary Artery Bypass Graft: No Ear Surgery: No Endocrine Surgery: No Eye Surgery: No Gynecologic Surgery: Yes (HYSTERECTOMY, OOPHRECTOMY) Hysterectomy: Yes Neurologic Surgery: No Oral Surgery: Yes (TONSILLECTOMY) Thoracic Surgery: No Tonsillectomy: Yes Other Surgery: Yes (INFARCTION TO SPLEEN) Family History Family Myocardial Infarction: Yes Social History Alcohol Use: No Tobacco Use: Yes (e-cig) Substance Use: No (HX OF) Allergies-Medications (Allergen,Severity, Reaction): Coded Allergies: Iodinated Contrast- Oral and IV Dye (Unverified Allergy, Severe, Anaphylaxis, 02/19/18) codeine (Unverified Allergy, Severe, RASH, 02/19/18) morphine (Unverified Allergy, Intermediate, Rash, 02/19/18) Reported Meds & Prescriptions Reported Meds & Active Scripts Active Zofran (Ondansetron HCl) 4 Mg Tab 4 Mg PO Q6HR PRN 10 Days Aspirin 81 Mg Chew 81 Mg CHEW DAILY 30 Days Reported [Nasal Mott] Clonidine (Clonidine HCl) 0.2 Mg Tab 0.2 Mg PO HS Review of Systems General / Constitutional: No: Fever, Chills Eyes: No: Diploplia, Blurred Vision HENT: No: Headaches, Vertigo Respiratory: No: Cough, Shortness of Breath Gastrointestinal: Positive: Nausea, Abdominal Pain Genitourinary: No: Frequency, Dysuria Musculoskeletal: No: Myalgias, Arthralgias Neurologic: No: Weakness, Dizziness Psychiatric: Positive: Anxiety Hematologic/Lymphatic: No: Easy Bruising Physical Exam Narrative GENERAL: Well-developed female SKIN: Focused skin assessment warm/dry. HEAD: Atraumatic. Normocephalic. EYES: Pupils equal and round. No scleral icterus. No injection or drainage. ENT: No nasal bleeding or discharge. Mucous membranes pink and moist. NECK: Trachea midline. No JVD. CARDIOVASCULAR: Regular rate and rhythm. No murmur appreciated. RESPIRATORY: No accessory muscle use. Clear to auscultation. Breath sounds equal bilaterally. GASTROINTESTINAL: Abdomen soft, non-tender, nondistended. No masses or hepatic and splenic margins not palpable. MUSCULOSKELETAL: No obvious deformities. No clubbing. No cyanosis. No edema. NEUROLOGICAL: Awake and alert. No obvious cranial nerve deficits. Motor grossly within normal limits. Normal speech. PSYCHIATRIC: Appropriate mood and affect; insight and judgment normal. Data Data Last Documented VS Vital Signs Date Time Temp Pulse Resp B/P (MAP) Pulse Ox O2 Delivery O2 Flow Rate FiO2 02/19/18 10:11 98.3 83 20 147/77 (100) 97 Orders Orders Urinalysis - C+S If Indicated (02/19/18 09:54) Complete Blood Count With Diff (02/19/18 10:32) Comprehensive Metabolic Panel (02/19/18 10:32) Lipase (02/19/18 10:32) Promethazine Inj (Phenergan Inj) (02/19/18 10:45) MDM Medical Decision Making Medical Screen Exam Complete: Yes Emergency Medical Condition: Yes Medical Record Reviewed: Yes Differential Diagnosis Differential includes gastroenteritis, nonspecific abdominal pain, bowel obstruction Narrative Course Plan was to lab work and CT scan. I explained to the patient. She is very anxious about phlebotomy. She left the emergency department without notifying anybody Diagnosis Primary Impression: Abdominal pain Gene Quintanilla MD Feb 19, 2018 11:05
== END 2018-02-19 12:06 | disposition left against medical advice (07) ==
LOC: PHED 09:53
DX: R10.9 Unspecified abdominal pain (principal); R11.2 Nausea with vomiting, unspecified; I10 Essential (primary) hypertension; E78.00 Pure hypercholesterolemia, unspecified; K21.9 Gastro-esophageal reflux disease without esophagitis; I25.10 Atherosclerotic heart disease of native coronary artery without angina pectoris; Z72.0 Tobacco use; Z86.59 Personal history of other mental and behavioral disorders; Z86.79 Personal history of other diseases of the circulatory system; Z86.73 Personal history of transient ischemic attack (TIA), and cerebral infarction without residual deficits; Z87.19 Personal history of other diseases of the digestive system; Z87.448 Personal history of other diseases of urinary system; Z87.39 Personal history of other diseases of the musculoskeletal system and connective tissue; Z86.69 Personal history of other diseases of the nervous system and sense organs
CPT/HCPCS: 96372; 99284; J2550

== ENCOUNTER 2018-03-24 10:02 | Observation (INO) | payer SELFPAY ==
[~2018-03-24] VITALS: Ht 162.6 cm; Wt 81.5 kg
[2018-03-24] VITALS (7 sets, daily range): BP systolic 98–130; BP diastolic 61–90; PULSE 65–87; RESP 16–22; TEMP 97.9–98.3; O2SAT 94–99
[~2018-03-24 10:02] MED LIST changes: +NASAL SPRAY; -WELLTAB39 PO
[2018-03-24] MEDS ORDERED: statin PO (10:21)
[2018-03-24] MEDS ORDERED: HYDR4TAB PO (10:21)
[2018-03-24] MEDS ORDERED: METO25TA3 PO (10:21)
[2018-03-24] MEDS ORDERED: METO-309 PO (10:21)
[2018-03-24] MEDS ORDERED: DIAZ5 PO (10:21)
--- NOTE | 2018-03-24 10:27 | PD ---
HPI Chief Complaint: Chest Pain Time Seen by Provider: 10:26 Travel History International Travel<30 days: No Contact w/Intl Traveler<30days: No Traveled to known affect area: No History of Present Illness HPI 52-year-old female came to the emergency room with history of chest pain substernal that started last night. Patient says she took some nitro from her last heart attack that she had few years ago that required stent placement. The nitro did not do anything and she decided to come to the emergency room. Pain radiates to the back. Vital signs are stable. No aggravating or relieving factors identified. Patient thinks it could be from the stress of her son's that happened 6 months ago. Patient did not take any aspirin. [facility] Past Medical History Narrative Medical List of his past medical, surgical, social and family history reviewed from the nursing note. Autoimmune Disease: No Blood Disorders: No Anxiety: Yes Depression: Yes Heart Rhythm Problems: No Cancer: No Cardiac Catheterization: Yes Cardiovascular Problems: Yes (STENT) High Cholesterol: Yes Chemotherapy: No Chest Pain: Yes Congestive Heart Failure: No Cerebrovascular Accident: Yes Coronary Artery Disease: Yes Diabetes: No Diminished Hearing: No Endocrine: No Gastrointestinal Disorders: Yes (ILEUS) GERD: Yes Genitourinary: Yes Headaches: Yes Hiatal Hernia: No Heparin Induced Thrombocytopen: No Hypertension: Yes Immune Disorder: No Implanted Vascular Access Dvce: No Kidney Stones: Yes Musculoskeletal: Yes (BULGING DISK, CHRONIC BACK PAIN, SCOLIOSIS) Neurologic: Yes Psychiatric: Yes Reproductive: No Respiratory: No Integumentary: Yes (CELLULITIS OF LEFT ANKLE) Migraines: Yes Radiation Therapy: No Renal Failure: No Thyroid Disease: No Ulcer: Yes (PEPTIC ) PNEUMOCCOCAL Vaccine (Year): 2 ?: Not Menopausal: Yes : 2 Para: 2 Past Surgical History Abdominal Surgery: Yes (CHOLECYSTECTOMY, APPENDECTOMY) Appendectomy: Yes Cardiac Surgery: No Cholecystectomy: Yes Coronary Artery Bypass Graft: No Ear Surgery: No Endocrine Surgery: No Eye Surgery: No Gynecologic Surgery: Yes (HYSTERECTOMY, OOPHRECTOMY) Hysterectomy: Yes Neurologic Surgery: No Oral Surgery: Yes (TONSILLECTOMY) Thoracic Surgery: No Tonsillectomy: Yes Other Surgery: Yes (INFARCTION TO SPLEEN) Family History Family Myocardial Infarction: Yes Social History Alcohol Use: No Tobacco Use: Yes (e-cig) Substance Use: No (HX OF) Allergies-Medications (Allergen,Severity, Reaction): Coded Allergies: Iodinated Contrast- Oral and IV Dye (Unverified Allergy, Severe, Anaphylaxis, 03/24/18) codeine (Unverified Allergy, Severe, RASH, 03/24/18) Comments List of his allergies reviewed from the nursing note. Reported Meds & Prescriptions Reported Meds & Active Scripts Active Aspirin 81 Mg Chew 81 Mg CHEW DAILY 30 Days Reported [statin] 1 Tab PO DAILY Narrative Medication List of his home medications reviewed from the nursing note. Review of Systems Except as stated in HPI: all other systems reviewed are Neg Cardiovascular: Positive: Chest Pain or Discomfort Physical Exam Narrative GENERAL: Awake, alert, moderate distress SKIN: Focused skin assessment warm/dry. HEAD: Atraumatic. Normocephalic. EYES: Pupils equal and round. No scleral icterus. No injection or drainage. ENT: No nasal bleeding or discharge. Mucous membranes pink and moist. NECK: Trachea midline. No JVD. CARDIOVASCULAR: Regular rate and rhythm. No murmur appreciated. RESPIRATORY: No accessory muscle use. Clear to auscultation. Breath sounds equal bilaterally. GASTROINTESTINAL: Abdomen soft, non-tender, nondistended. Hepatic and splenic margins not palpable. MUSCULOSKELETAL: No obvious deformities. No clubbing. No cyanosis. No edema. NEUROLOGICAL: Awake and alert. No obvious cranial nerve deficits. Motor grossly within normal limits. Normal speech. PSYCHIATRIC: Appropriate mood and affect; insight and judgment normal. Data Data Last Documented VS Vital Signs Date Time Temp Pulse Resp B/P (MAP) Pulse Ox O2 Delivery O2 Flow Rate FiO2 03/24/18 10:26 97 Nasal Cannula 2.00 03/24/18 10:22 70 18 119/72 (88) 03/24/18 10:09 98.3 Orders Orders Electrocardiogram (03/24/18 10:32) Basic Metabolic Panel (Bmp) (03/24/18 10:32) Complete Blood Count With Diff (03/24/18 10:32) Magnesium (Mg) (03/24/18 10:32) Prothrombin Time / Inr (Pt) (03/24/18 10:32) Troponin I (03/24/18 10:32) Ecg Monitoring (03/24/18 10:32) Bilateral Bp Monitoring (03/24/18 10:32) Iv Access Insert/Monitor (03/24/18 10:32) Oximetry (03/24/18 10:32) Oxygen Administration (03/24/18 10:32) Aspirin Chew (Aspirin Chew) (03/24/18 10:45) Sodium Chloride 0.9% Flush (Ns Flush) (03/24/18 10:45) Chest, Pa & Lat (03/24/18 10:32) Potassium Chloride Eff (K-Lyte Cl Eff) (03/24/18 11:30) Admit Order (Ed Use Only) (03/24/18 11:26) Labs Laboratory Tests Test 03/24/18 10:38 White Blood Count 5.0 TH/MM3 Red Blood Count 3.89 MIL/MM3 Hemoglobin 11.7 GM/DL Hematocrit 35.8 % Mean Corpuscular Volume 92.0 FL Mean Corpuscular Hemoglobin 30.2 PG Mean Corpuscular Hemoglobin Concent 32.8 % Red Cell Distribution Width 14.3 % Platelet Count 257 TH/MM3 Mean Platelet Volume 7.3 FL Neutrophils (%) (Auto) 53.3 % Lymphocytes (%) (Auto) 31.5 % Monocytes (%) (Auto) 11.5 % Eosinophils (%) (Auto) 3.1 % Basophils (%) (Auto) 0.6 % Neutrophils # (Auto) 2.7 TH/MM3 Lymphocytes # (Auto) 1.6 TH/MM3 Monocytes # (Auto) 0.6 TH/MM3 Eosinophils # (Auto) 0.2 TH/MM3 Basophils # (Auto) 0.0 TH/MM3 CBC Comment DIFF FINAL Differential Comment Prothrombin Time 12.2 SEC Prothromb Time International Ratio 1.2 RATIO Blood Urea Nitrogen 15 MG/DL Creatinine 0.68 MG/DL Random Glucose 100 MG/DL Calcium Level 8.5 MG/DL Magnesium Level 1.8 MG/DL Sodium Level 141 MEQ/L Potassium Level 3.4 MEQ/L Chloride Level 110 MEQ/L Carbon Dioxide Level 23.5 MEQ/L Anion Gap 8 MEQ/L Estimat Glomerular Filtration Rate 90 ML/MIN Troponin I LESS THAN 0.02 NG/ML MDM Medical Decision Making Medical Screen Exam Complete: Yes Emergency Medical Condition: Yes Medical Record Reviewed: Yes Differential Diagnosis Non-STEMI, ACS, nonspecific chest pain Narrative Course 11:30 AM blood test results are back and within acceptable limit. I will admit her to the chest pain center to be ruled out. Patient does have risk factors. Medical record showed that patient was in [place] emergency room February 19 for chest pain and had left AMA. Patient tells me she left because they could not find an IV and were trying to put an IV in her neck which she did not want. Procedures EKG Prior to Arrival: No Diagnosis Primary Impression: Chest pain Qualified Codes: R07.9 - Chest pain, unspecified Admitting Information Admitting Physician Requests: Observation Scripts Hydrocodone/Acetaminophen (Hydrocodone-Acetamin 10-325 mg) 10 Mg-325 Mg Tablet 1 TAB PO Q6HR Y for PAIN SCALE 6 TO 10, #6 Prov: Jennifer Robles MD 03/27/18 Pantoprazole (Pantoprazole) 40 Mg Tab 40 MG PO DAILY, #30 TAB Prov: Jennifer Robles MD 03/27/18 Aspirin (Tgt Aspirin) 81 Mg Chw 81 MG PO DAILY, #30 EA Prov: Jennifer Robles MD 03/27/18 Isosorbide Mononitrate ER (Isosorbide Mononitrate ER) 30 Mg Everardo 30 MG PO DAILY@07, #30 TAB Prov: Jennifer Robles MD 03/27/18 Atorvastatin (Atorvastatin) 40 Mg Tab 40 MG PO DAILY, #30 TAB Prov: Jennifer Robles MD 03/27/18 Clopidogrel (Plavix) 75 Mg Tab 75 MG PO DAILY for Blood Clot Prevention, #30 TAB 0 Refills Prov: Jennifer Robles MD 03/27/18 Metoprolol Tartrate (Metoprolol Tartrate) 25 Mg Tab 25 MG PO BID for Blood Pressure Management, #60 TAB 0 Refills Prov: Jennifer Robles MD 03/27/18 Diazepam (Valium) 5 Mg Tab 5 MG PO HS Y for ANXIETY, #3 TAB 0 Refills Prov: Jennifer Robles MD 03/27/18 Gianna Langford MD Mar 24, 2018 10:26
[2018-03-24] MEDS ORDERED: ASPIRIN 81 MG CHEW TAB PO ONE (10:45)
[2018-03-24] MEDS ORDERED: SODIUM CHLORIDE 0.9% FLUSH 10 ML FLUSH IVF PRN (10:45)
[2018-03-24 10:53] LABS: AUTOMATED NEUTROPHIL # 2.7 TH/MM3 (1.8-7.7); BASOPHIL % 0.6 % (0.0-2.0); EOSINOPHIL # 0.2 TH/MM3 (0-0.4); EOSINOPHIL % 3.1 % (0.0-4.0); HEMATOCRIT 35.8 % (35.0-46.0); HEMOGLOBIN 11.7 GM/DL (11.6-15.3); LYMPH % 31.5 % (9.0-44.0); LYMPHOCYTE # 1.6 TH/MM3 (1.0-4.8); MEAN CORPUSCULAR HEMOGLOBIN 30.2 PG (27.0-34.0); MEAN CORPUSCULAR HGB CONC 32.8 % (32.0-36.0); MEAN PLATELET VOLUME 7.3 FL (7.0-11.0); MONO % 11.5 % (0.0-8.0); MONOCYTE # 0.6 TH/MM3 (0-0.9); NEUT % 53.3 % (16.0-70.0); PLATELET COUNT 257 TH/MM3 (150-450); RED BLOOD COUNT 3.89 MIL/MM3 (4.00-5.30); RED CELL DISTRIBUTION WIDTH 14.3 % (11.6-17.2)
[2018-03-24 11:01] LABS: INTERNATIONAL NORMALIZED RATIO 1.2 RATIO; PROTHROMBIN TIME - PATIENT 12.2 SEC (9.8-11.6)
--- NOTE | 2018-03-24 11:09 | RADRPT ---
EXAM DATE/TIME: 03/24/2018 10:55 [facility] COMPARISON: CHEST SINGLE AP, January 07, 2018, 17:06. INDICATIONS : Chest pain MEDICAL HISTORY : Myocardial infarction. Hypertension Gastroesophageal reflux disease. SURGICAL HISTORY : Coronary artery stent. Hysterectomy. Appendectomy. ENCOUNTER: Initial ACUITY: 2 days PAIN SCORE: 8/10 LOCATION: Bilateral chest FINDINGS: PA and lateral views of the chest. The lungs are clear. Cardiomediastinal silhouette within normal li mits. No evidence of pleural effusion or pneumothorax. CONCLUSION: No acute cardiopulmonary disease identified. Adelso Pelayo MD on March 24, 2018 at 11:03 Board Certified Radiologist. This report was verified electronically.
[2018-03-24 11:14] LABS: BICARBONATE 23.5 MEQ/L (21.0-32.0); BLOOD UREA NITROGEN 15 MG/DL (7-18); CALCIUM 8.5 MG/DL (8.5-10.1); CHLORIDE 110 MEQ/L (98-107); CREATININE 0.68 MG/DL (0.50-1.00); GLOMERULAR FILTRATION RATE 90 ML/MIN (>89); GLUCOSE,RANDOM 100 MG/DL (74-106); MAGNESIUM 1.8 MG/DL (1.5-2.5); SODIUM (NA) 141 MEQ/L (136-145)
[2018-03-24 11:18] LABS: TROPONIN I LESS THAN 0.02 NG/ML (0.02-0.05)
[2018-03-24] MEDS ORDERED: IOHEXOL 350 MG/ML 100 ML BTL (for Cath Lab) OTHER ONE (11:28)
[2018-03-24] MEDS ORDERED: POTASSIUM CHLORIDE 25 MEQ EFFERVESCENT TAB PO ONE (11:30)
[2018-03-24] MEDS ORDERED: ONDANSETRON HCL 4 MG/2 ML VIAL IV PUSH ONE (11:45)
[2018-03-24] MEDS ORDERED: KETOROLAC TROMETHAMINE 30 MG/ML (IVP) VIAL IV PUSH ONE (11:45)
[2018-03-24] MEDS ORDERED: PLAV75TA29 PO (13:19)
[2018-03-24] MEDS ORDERED: cloNIDine HCL 0.1 MG TAB PO PRN (13:30)
[2018-03-24] MEDS ORDERED: ONDANSETRON HCL 4 MG/2 ML VIAL IV PUSH PRN (13:30)
[2018-03-24] MEDS ORDERED: RESP: ALBUTEROL 2.5 MG/IPRATROPIUM 0.5 MG NEB (PRN) INH (13:30)
[2018-03-24] MEDS ORDERED: ACETAMINOPHEN 500 MG CPLT PO PRN (13:30)
--- NOTE | 2018-03-24 13:31 | HHI.HP ---
HPI Primary Care Physician No Primary Care Physician Chief Complaint Chest pain History of Present Illness This is a 52-year-old female history of CAD with history of 2 stents in 2015 that presents to ED with complaint of chest discomfort that began yesterday while she was lying in bed. Describes a central chest pressure radiating to her left shoulder. Lasted 30 seconds but continued to recur throughout the evening. States it is a similar type of discomfort that she had when needing stents in 2015. It occurred again soon after waking up this morning. Same type of pressure. Lasted a little longer may be a few minutes. She was short of breath with it. No nausea or diaphoresis. States she has been compliant with medication including Plavix, metoprolol, a statin, and aspirin. She has not followed up with a spa concierge since having stents placed in 2014. She was at the [facility] in January and had a nonischemic Lexiscan . Currently no discomfort. States she is anxious but does not think that is causing her discomfort. States took a Valium last night which did not improve her symptoms. She missed to being under a lot of stress. States her son committed suicide 7 months ago. Review of Systems General: Patient denies fevers, chills, and recent travel. HEENT: Patient denies headache, sore throat, difficulty swallowing. Cardiovascular: Has the chest discomfort as mentioned above. Denies sensation of heart beating rapidly or irregularly. No syncope. Denies diaphoresis. Respiratory: She has been short of breath. Denies inspirational chest discomfort. Denies coughing wheezing or hemoptysis. GI: Patient denies nausea, vomiting, diarrhea, abdominal pain, bloody stools. Musculoskeletal: Chronic back pain. Patient denies joint pain or edema. Denies calf pain or edema. Neurovascular: Patient denies numbness, tingling, weakness in extremities. Denies headache. Endocrine: Denies polyuria and polydipsia. Hematologic: Denies easy bruising. Skin: Denies rash or itching. Past Family Social History Allergies: Coded Allergies: Iodinated Contrast- Oral and IV Dye (Unverified Allergy, Severe, Anaphylaxis, 03/24/18) codeine (Unverified Allergy, Severe, RASH, 03/24/18) Past Medical History CAD with stent of the distal RCA and proximal LAD in 2014. CVA, hyperlipidemia , hypertension, GERD. Tobacco abuse. Denies diabetes. Past Surgical History Heart catheterization with 2 stents in 2014. Cholecystectomy, appendectomy, and hysterectomy. Reported Medications Reported Meds & Active Scripts Active Aspirin 81 Mg Chew 81 Mg CHEW DAILY 30 Days Reported Plavix (Clopidogrel Bisulfate) 75 Mg Tab 75 Mg PO DAILY [statin] 1 Tab PO DAILY Metoprolol Tartrate 25 Mg Tab 25 Mg PO BID Valium (Diazepam) 5 Mg Tab 5 Mg PO HS PRN Active Ordered Medications Current Medications Medications (Trade) Dose Ordered Sig/Courtney Route Start Time Stop Time Status Last Admin (NS Flush) 2 ml UNSCH PRN IVF 03/24/18 10:45 (Tylenol) 500 mg Q4H PRN PO 03/24/18 13:30 UNV ([place] 7.5-325 Mg) 1 tab Q4H PRN PO 03/24/18 13:30 (Zofran Inj) 4 mg Q6H PRN IV PUSH 03/24/18 13:30 UNV (Protonix) 40 mg DAILY PO 03/24/18 13:30 UNV (Aspirin) 325 mg DAILY PO 03/25/18 09:00 UNV (Xanax) 0.25 mg Q8H PRN PO 03/24/18 13:30 UNV (Duoneb Neb) 1 ampule Q4HR NEB PRN INH 03/24/18 13:30 UNV (Catapres) 0.1 mg Q4H PRN PO 03/24/18 13:30 UNV Family History Her sister has CAD. Social History Continues to smoke cigarettes. States 3 cigarettes per day for the last several months but was smoking 1 pack of cigarettes daily for 30 years prior. Denies alcohol. Denies illicit drugs. States she has been under a lot of stress , states her son committed suicide 7 months ago. Physical Exam Vital Signs Vital Signs Date Time Temp Pulse Resp B/P (MAP) Pulse Ox O2 Delivery O2 Flow Rate FiO2 03/24/18 12:53 03/24/18 12:30 80 16 126/84 (98) 99 Room Air 03/24/18 10:26 97 Nasal Cannula 2.00 03/24/18 10:22 70 18 119/72 (88) 97 Room Air 03/24/18 10:09 98.3 87 22 130/90 (103) 96 Physical Exam GENERAL: This is a well-nourished, well-developed patient, in no apparent distress. Patient speaks in clear complete sentences. Patient is pleasant. HEENT: Head is atraumatic and normocephalic. Neck is supple without lymphadenopathy and trachea is midline. No JVD or carotid bruits. CARDIOVASCULAR: Regular rate and rhythm without murmurs, gallops, or rubs. RESPIRATORY: Clear to auscultation. Breath sounds equal bilaterally. No wheezes , rales, or rhonchi. Chest wall is nontender. No use of accessory muscles. GASTROINTESTINAL: Abdomen is nontender, nondistended. Abdomen soft. No obvious pulsatile mass or bruit. No CVA tenderness. Strong femoral pulses bilaterally. Normal bowel sounds in all quadrants. MUSCULOSKELETAL: Patient is moving upper and lower extremities freely. No calf tenderness or edema, no Homans sign. Strong pulses in upper and lower extremities. NEUROLOGICAL: Patient is alert and oriented. Cranial nerves 2-12 are grossly intact. No focal deficits and speech is clear. SKIN: No rash and turgor is normal. Laboratory Laboratory Tests Test 03/24/18 10:38 White Blood Count 5.0 Red Blood Count 3.89 Hemoglobin 11.7 Hematocrit 35.8 Mean Corpuscular Volume 92.0 Mean Corpuscular Hemoglobin 30.2 Mean Corpuscular Hemoglobin Concent 32.8 Red Cell Distribution Width 14.3 Platelet Count 257 Mean Platelet Volume 7.3 Neutrophils (%) (Auto) 53.3 Lymphocytes (%) (Auto) 31.5 Monocytes (%) (Auto) 11.5 Eosinophils (%) (Auto) 3.1 Basophils (%) (Auto) 0.6 Neutrophils # (Auto) 2.7 Lymphocytes # (Auto) 1.6 Monocytes # (Auto) 0.6 Eosinophils # (Auto) 0.2 Basophils # (Auto) 0.0 CBC Comment DIFF FINAL Differential Comment Prothrombin Time 12.2 Prothromb Time International Ratio 1.2 Blood Urea Nitrogen 15 Creatinine 0.68 Random Glucose 100 Calcium Level 8.5 Magnesium Level 1.8 Sodium Level 141 Potassium Level 3.4 Chloride Level 110 Carbon Dioxide Level 23.5 Anion Gap 8 Estimat Glomerular Filtration Rate 90 Troponin I LESS THAN 0.02 Result Diagram: 03/24/18 1038 03/24/18 1038 Imaging Last 48 hours Impressions Chest X-Ray 03/24/18 1032 Signed Impressions: Service Date/Time: Saturday, March 24, 2018 10:55 - CONCLUSION: No acute cardiopulmonary disease identified. Adelso Pelayo MD Course Initial EKG is sinus rhythm rate of 69 with inverted T waves in V1 and V2. No significant ST segment depressions or elevations. Caprini VTE Risk Assessment Caprini VTE Risk Assessment: No/Low Risk (score <= 1) Caprini Risk Assessment Model Point Value = 1 Point Value = 2 Point Value = 3 Point Value = 5 Age 41-60 Minor surgery BMI > 25 kg/m2 Swollen legs Varicose veins or History of unexplained or recurrent spontaneous Oral contraceptives or hormone replacement Sepsis (< 1 month) Serious lung disease, including pneumonia (< 1 month) Abnormal pulmonary function Acute myocardial infarction Congestive heart failure (< 1 month) History of inflammatory bowel disease Medical patient at bed rest Age 61-74 Arthroscopic surgery Major open surgery (> 45 min) Laparoscopic surgery (> 45 min) Malignancy Confined to bed (> 72 hours) Immobilizing plaster cast Central venous access Age >= 75 History of VTE Family history of VTE Factor V Leiden Prothrombin [id number] Lupus anticoagulant Anticardiolipin antibodies Elevated serum homocysteine Heparin-induced thrombocytopenia Other congenital or acquired thrombophilia Stroke (< 1 month) Elective arthroplasty Hip, pelvis, or leg fracture Acute spinal cord injury (< 1 month) Prophylaxis Regimen Total Risk Factor Score Risk Level Prophylaxis Regimen 0-1 Low Early ambulation 2 Moderate Order ONE of the following: *Sequential Compression Device (SCD) *Heparin 5000 units SQ BID 3-4 Higher Order ONE of the following medications: *Heparin 5000 units SQ TID *Enoxaparin/Lovenox 40 mg SQ daily (WT < 150 kg, CrCl > 30 mL/min) *Enoxaparin/Lovenox 30 mg SQ daily (WT < 150 kg, CrCl > 10-29 mL/min) *Enoxaparin/Lovenox 30 mg SQ BID (WT < 150 kg, CrCl > 30 mL/min) AND/OR *Sequential Compression Device (SCD) 5 or more Highest Order ONE of the following medications: *Heparin 5000 units SQ TID (Preferred with Epidurals) *Enoxaparin/Lovenox 40 mg SQ daily (WT < 150 kg, CrCl > 30 mL/min) *Enoxaparin/Lovenox 30 mg SQ daily (WT < 150 kg, CrCl > 10-29 mL/min) *Enoxaparin/Lovenox 30 mg SQ BID (WT < 150 kg, CrCl > 30 mL/min) AND *Sequential Compression Device (SCD) Assessment and Plan Assessment and Plan * Chest pain: Patient will continue to have serial cardiac enzymes and EKGs for ruling out purposes. She had a nonischemic Lexiscan January 2018 and likely will not have another stress test at this visit. Further plan to be determined after being evaluated by Dr. Ray of cardiology in the chest pain center. Patient will need follow-up on outpatient basis with a spa concierge as well as primary care physician. She should return to ED for interval issues. * CAD: Resume medications. Patient is to quit smoking. Further plan pending Dr. Ray's evaluation. * Hyperlipidemia: Continue statin. * Hypertension: Continue medication. * Tobacco abuse: Patient has been counseled on importance of smoking cessation. Patient is stable at this time. She is agreeable to this plan. Irvin Rachel Mar 24, 2018 13:31
[2018-03-24] MEDS: ACETAMINOPHEN/HYDROcodone 325 MG/7.5 MG TAB PO PRN ×2 (15:39→20:31)
[2018-03-24] MEDS: ALPRAZolam 0.25 MG TAB PO PRN (15:45)
[2018-03-24] MEDS: PANTOPRAZOLE SOD 40 MG DELAYED RELEASE TAB PO SCH (15:45)
[2018-03-24] MEDS: ATORVASTATIN 40 MG TAB PO SCH (18:35)
--- NOTE | 2018-03-24 18:40 | EKG ---
Date Performed: 03/24/2018 Time Performed: 16:52:14 PTAGE: 52 years EKG: Sinus rhythm NORMAL ECG Since PREVIOUS TRACING , no significant change noted PREVIOUS TRACIN03/24/2018 13.54 DOCTOR: Amy Ray Interpretating Date/Time 03/24/2018 18:39:56
--- NOTE | 2018-03-24 18:42 | EKG ---
Date Performed: 03/24/2018 Time Performed: 13:54:12 PTAGE: 52 years EKG: Sinus rhythm NORMAL ECG Since PREVIOUS TRACING , no significant change noted PREVIOUS TRACIN03/24/2018 10.21 DOCTOR: Amy Ray Interpretating Date/Time 03/24/2018 18:41:11
--- NOTE | 2018-03-24 18:44 | EKG ---
Date Performed: 03/24/2018 Time Performed: 10:21:26 PTAGE: 52 years EKG: Sinus rhythm NORMAL ECG Since PREVIOUS TRACING , no significant change noted DOCTOR: Amy Ray Interpretating Date/Time 03/24/2018 18:42:39
[2018-03-24 19:05] LABS: TROPONIN I LESS THAN 0.02 NG/ML (0.02-0.05)
[2018-03-24] MEDS: METOPROLOL TARTRATE 25 MG TAB PO SCH (20:30)
[2018-03-25] VITALS (7 sets, daily range): BP systolic 92–116; BP diastolic 53–73; PULSE 48–62; RESP 16–18; TEMP 97.6–98.4; O2SAT 95–99
[2018-03-25 00:10] LABS: TROPONIN I LESS THAN 0.02 NG/ML (0.02-0.05)
[2018-03-25] MEDS: ALPRAZolam 0.25 MG TAB PO PRN ×3 (01:04→20:36)
[2018-03-25 06:30] LABS: ALBUMIN 3.1 GM/DL (3.4-5.0); DIRECT BILIRUBIN ADULT 0.1 MG/DL (0.0-0.2)
[2018-03-25 06:32] LABS: CHOLESTEROL/ HDL RATIO 2.6 RATIO; HDL CHOLESTEROL 41.5 MG/DL (40.0-60.0); INDIRECT BILIRUBIN 0.1 MG/DL (0.0-0.8); TOTAL BILIRUBIN ADULT 0.2 MG/DL (0.2-1.0); TOTAL PROTEIN 6.3 GM/DL (6.4-8.2)
[2018-03-25] MEDS: ACETAMINOPHEN/HYDROcodone 325 MG/7.5 MG TAB PO PRN (07:59)
--- NOTE | 2018-03-25 08:49 | EKG ---
Date Performed: 03/25/2018 Time Performed: 00:49:18 PTAGE: 52 years EKG: SINUS BRADYCARDIA BORDERLINE ECG PREVIOUS TRACING : 03/24/2018 16.52 DOCTOR: Yuan Dodd Interpretating Date/Time 03/25/2018 08:48:19
[2018-03-25] MEDS: ASPIRIN 325 MG TAB PO SCH (09:58)
[2018-03-25] MEDS: ATORVASTATIN 40 MG TAB PO SCH (09:58)
[2018-03-25] MEDS: CLOPIDOGREL 75 MG TAB PO SCH (09:59)
[2018-03-25] MEDS: PANTOPRAZOLE SOD 40 MG DELAYED RELEASE TAB PO SCH (09:59)
--- NOTE | 2018-03-25 10:27 | HHI.PR ---
Subjective Remarks The patient said the mailroom supervisor was upset with her for still smoking. The patient said that she was expecting to have the catheterization tomorrow. She would like her pain medication increased. She has been nauseous at times. Discussed with nursing and cardiology. Objective Vitals Vital Signs Date Time Temp Pulse Resp B/P (MAP) Pulse Ox O2 Delivery O2 Flow Rate FiO2 03/25/18 08:59 20 03/25/18 07:35 98.3 61 16 113/73 (86) 99 03/25/18 05:21 98.1 52 16 116/71 (86) 95 03/25/18 00:47 97.9 48 16 109/66 (80) 97 03/24/18 22:22 94 03/24/18 19:55 98.1 65 16 98/61 (73) 96 03/24/18 15:13 97.9 75 18 114/63 (80) 95 03/24/18 14:15 78 03/24/18 12:53 03/24/18 12:30 80 16 126/84 (98) 99 Room Air 03/24/18 10:26 97 Nasal Cannula 2.00 03/24/18 10:22 70 18 119/72 (88) 97 Room Air I/O 03/24/18 03/24/18 03/24/18 03/25/18 03/25/18 03/25/18 07:00 15:00 23:00 07:00 15:00 23:00 Intake Total 200 ml Balance 200 ml Intake Oral 200 ml # Voids 4 Result Diagram: 03/24/18 1038 03/24/18 1038 Imaging Last Impressions Chest X-Ray 03/24/18 1032 Signed Impressions: Service Date/Time: Saturday, March 24, 2018 10:55 - CONCLUSION: No acute cardiopulmonary disease identified. Adelso Pelayo MD Objective Remarks GENERAL: This is a well-nourished, well-developed patient, in no apparent distress. HEENT: Head is atraumatic and normocephalic. Neck is supple without lymphadenopathy and trachea is midline. No JVD or carotid bruits. CARDIOVASCULAR: Regular rate and rhythm without murmurs, gallops, or rubs. RESPIRATORY: Clear to auscultation. Breath sounds equal bilaterally. No wheezes , rales, or rhonchi. Chest wall is nontender. No use of accessory muscles. GASTROINTESTINAL: Abdomen is nontender, nondistended. Abdomen soft. No obvious pulsatile mass or bruit. MUSCULOSKELETAL: Patient is moving upper and lower extremities freely. No edema. Strong pulses in upper and lower extremities. NEUROLOGICAL: Patient is alert and oriented. Cranial nerves 2-12 are grossly intact. No focal deficits and speech is clear. Medications and IVs Current Medications Medications (Trade) Dose Ordered Sig/Courtney Route Start Time Stop Time Status Last Admin (NS Flush) 2 ml UNSCH PRN IVF 03/24/18 10:45 (Tylenol) 500 mg Q4H PRN PO 03/24/18 13:30 (Zofran Inj) 4 mg Q6H PRN IV PUSH 03/24/18 13:30 (Protonix) 40 mg DAILY PO 03/24/18 13:30 03/25/18 09:59 (Aspirin) 325 mg DAILY PO 03/25/18 09:00 03/25/18 09:58 (Xanax) 0.25 mg Q8H PRN PO 03/24/18 13:30 03/25/18 09:58 (Duoneb Neb) 1 ampule Q4HR NEB PRN INH 03/24/18 13:30 (Catapres) 0.1 mg Q4H PRN PO 03/24/18 13:30 (Plavix) 75 mg DAILY PO 03/25/18 09:00 03/25/18 09:59 (Lopressor) 25 mg BID PO 03/24/18 21:00 03/24/18 20:30 (Lipitor) 40 mg DAILY PO 03/24/18 18:30 03/25/18 09:58 (Lovenox Inj) 40 mg Q24H SQ 03/25/18 10:30 UNV (Mycostatin Powder) 1 applic Q12HR TOPICAL 03/25/18 10:45 UNV (Nitroglycerin 2% Oint) 1 inch Q6HR TOPICAL 03/25/18 12:00 UNV (Deltasone) 40 mg ONCE ONCE PO 03/25/18 10:45 03/25/18 10:46 UNV (Deltasone) 40 mg ONCE ONCE PO 03/25/18 22:00 03/25/18 22:01 UNV (Deltasone) 40 mg ONCE ONCE PO 03/26/18 06:30 03/26/18 06:31 UNV (Pepcid) 20 mg BID PO 03/25/18 21:00 UNV Sodium Chloride 1,000 ml @ 100 mls/hr Q10H IV 03/25/18 10:42 03/30/18 10:41 UNV (Aspirin) 325 mg TURRET LATHE SET UP OPERATOR PO 03/25/18 10:45 03/29/18 10:44 UNV (Benadryl) 50 mg TURRET LATHE SET UP OPERATOR PO 03/25/18 10:45 03/29/18 10:44 UNV (Valium) 5 mg TURRET LATHE SET UP OPERATOR PO 03/25/18 10:45 03/29/18 10:44 UNV (Platina 10-325 Mg) 1 tab Q4H PRN PO 03/25/18 10:45 UNV A/P Assessment and Plan Chest pain She had a nonischemic Lexiscan January 2018. Admitted to chest pain center initially. Trops flat. - telemetry. - cardiology consulted. Plan for cath in AM. - pain control and oxygen as needed. Elevated LFTs Unsure of etiology. - trend CMP. Tobacco abuse The pt continues to smoke. - Patient has been counseled on importance of smoking cessation. Hypokalemia Possibly s/t decreased PO intake. - monitor and replete as needed. Rash Located on groin. - Nystatin powder. PPx: Aleks Zacarias DO Mar 25, 2018 10:27
[2018-03-25] MEDS ORDERED: ASPIRIN 325 MG TAB PO SCH (10:45)
[2018-03-25] MEDS ORDERED: DIAZEPAM 5 MG TAB PO SCH (10:45)
[2018-03-25] MEDS ORDERED: diphenhydrAMINE HCL 50 MG CAP PO SCH (10:45)
[2018-03-25] MEDS ORDERED: predniSONE 20 MG TAB PO ONE ×2 (11:00→22:00)
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
[2018-03-25] MEDS: ACETAMINOPHEN/HYDROcodone 325 MG/10 MG TAB PO PRN ×3 (12:58→22:47)
[2018-03-25] MEDS: ENOXAPARIN SODIUM 40 MG/0.4 ML SYRINGE SQ SCH (13:01)
[2018-03-25] MEDS: NITROGLYCERIN 2% OINT 1 GM PACKET TOPICAL SCH ×3 (13:01→22:45)
[2018-03-25 13:03] LABS: BICARBONATE 26.2 MEQ/L (21.0-32.0); CALCIUM 8.8 MG/DL (8.5-10.1); CREATININE 0.64 MG/DL (0.50-1.00)
[2018-03-25 13:08] LABS: CHOLESTEROL/ HDL RATIO 2.81 RATIO; HDL CHOLESTEROL 43.4 MG/DL (40.0-60.0)
[2018-03-25] MEDS: METOPROLOL TARTRATE 25 MG TAB PO SCH ×2 (14:03→20:36)
[2018-03-25] MEDS: SODIUM CHLOR 0.9% 1000 ML INJ 1,000 ML IV SCH ×2 (14:04→20:37)
[2018-03-25] MEDS: NYSTATIN 100,000 U/GM PWD 15 GM BTL TOPICAL SCH ×2 (18:22→20:38)
[2018-03-25] MEDS: FAMOTIDINE 20 MG TAB PO SCH (20:37)
[2018-03-26] VITALS (17 sets, daily range): BP systolic 103–144; BP diastolic 52–85; PULSE 45–74; RESP 15–18; TEMP 97.6–98.1; O2SAT 96–99
[2018-03-26] MEDS: ACETAMINOPHEN/HYDROcodone 325 MG/10 MG TAB PO PRN ×4 (02:23→21:40)
[2018-03-26] MEDS: ALPRAZolam 0.25 MG TAB PO PRN ×2 (05:38→17:53)
[2018-03-26] MEDS: NITROGLYCERIN 2% OINT 1 GM PACKET TOPICAL SCH ×3 (05:38→17:54)
[2018-03-26] MEDS: SODIUM CHLOR 0.9% 1000 ML INJ 1,000 ML IV SCH ×4 (05:38→21:49)
[2018-03-26 06:00] LABS: AUTOMATED NEUTROPHIL # 7.1 TH/MM3 (1.8-7.7); BASOPHIL % 0.1 % (0.0-2.0); HEMATOCRIT 33.8 % (35.0-46.0); LYMPH % 11.3 % (9.0-44.0); LYMPHOCYTE # 0.9 TH/MM3 (1.0-4.8); MEAN CELL VOLUME 91.5 FL (80.0-100.0); MEAN CORPUSCULAR HEMOGLOBIN 29.8 PG (27.0-34.0); MEAN CORPUSCULAR HGB CONC 32.6 % (32.0-36.0); MEAN PLATELET VOLUME 7.7 FL (7.0-11.0); MONO % 2.5 % (0.0-8.0); MONOCYTE # 0.2 TH/MM3 (0-0.9); NEUT % 86.1 % (16.0-70.0); PLATELET COUNT 246 TH/MM3 (150-450); RED BLOOD COUNT 3.69 MIL/MM3 (4.00-5.30); RED CELL DISTRIBUTION WIDTH 13.9 % (11.6-17.2); WHITE BLOOD COUNT 8.2 TH/MM3 (4.0-11.0)
[2018-03-26 06:28] LABS: ALBUMIN 2.9 GM/DL (3.4-5.0); AST (GOT) 45 U/L (15-37); BICARBONATE 21.9 MEQ/L (21.0-32.0); BLOOD UREA NITROGEN 11 MG/DL (7-18); CALCIUM 8.5 MG/DL (8.5-10.1); CHLORIDE 112 MEQ/L (98-107); CREATININE 0.66 MG/DL (0.50-1.00); GLOMERULAR FILTRATION RATE 93 ML/MIN (>89); GLUCOSE,RANDOM 151 MG/DL (74-106); SODIUM (NA) 141 MEQ/L (136-145)
[2018-03-26 06:30] LABS: ALT (GPT) 100 U/L (10-53)
[2018-03-26] MEDS ORDERED: predniSONE 20 MG TAB PO ONE (06:30)
[2018-03-26 06:32] LABS: ALKALINE PHOSPHATASE 80 U/L (45-117); TOTAL BILIRUBIN ADULT 0.2 MG/DL (0.2-1.0); TOTAL PROTEIN 6.1 GM/DL (6.4-8.2)
[2018-03-26] MEDS ORDERED: MIDAZOLAM HCL 2 MG/2 ML VIAL ONE ×3 (07:25→08:29)
[2018-03-26] MEDS ORDERED: HEPARIN-NS/PF FLUSH BAG 2,000 ML IV FLUSH ONE (07:31)
[2018-03-26] MEDS ORDERED: NITROGLYCERIN INJ 5 ML ONE (07:31)
[2018-03-26] MEDS ORDERED: BIVALIRUDIN 250 MG VIAL ONE (08:17)
[2018-03-26] MEDS ORDERED: STERILE WATER FOR INJECTION 10 ML VIAL ONE (08:17)
[2018-03-26] MEDS ORDERED: CLOPIDOGREL 300 MG TAB ONE (08:44)
[2018-03-26] MEDS ORDERED: ASPIRIN 325 MG TAB ONE (08:48)
[2018-03-26] MEDS: ASPIRIN 81 MG CHEW TAB PO SCH (09:00)
[2018-03-26] MEDS ORDERED: ONDANSETRON HCL 4 MG/2 ML VIAL IV PUSH PRN (09:00)
[2018-03-26] MEDS: FAMOTIDINE 20 MG TAB PO SCH ×2 (09:00→21:39)
[2018-03-26] MEDS: ATORVASTATIN 40 MG TAB PO SCH (09:00)
[2018-03-26] MEDS ORDERED: MORPHINE SULFATE 2 MG/ML SYRINGE IV PUSH PRN (09:00)
[2018-03-26] MEDS: METOPROLOL TARTRATE 25 MG TAB PO SCH ×2 (09:00→21:39)
[2018-03-26] MEDS: ASPIRIN 325 MG TAB PO SCH (09:00)
[2018-03-26] MEDS ORDERED: SODIUM CHLORIDE 0.9% FLUSH 10 ML FLUSH IV FLUSH PRN (09:00)
[2018-03-26] MEDS: PANTOPRAZOLE SOD 40 MG DELAYED RELEASE TAB PO SCH (09:00)
[2018-03-26] MEDS ORDERED: MISC INFORMATION XX ONE (09:00)
[2018-03-26] MEDS: CLOPIDOGREL 75 MG TAB PO SCH (09:00)
[2018-03-26] MEDS: NYSTATIN 100,000 U/GM PWD 15 GM BTL TOPICAL SCH ×2 (09:00→21:39)
[2018-03-26] MEDS ORDERED: BACITRACIN OINT 0.9 GM PKT TOP ONE (09:00)
--- NOTE | 2018-03-26 09:08 | CATHPROC ---
[employer] HIS Report Study Information Study Number Admission Scheduled Start Study Start [id number] Mar 24 2018 11:27AM 03/26/2018 Mar 26 2018 7:07AM [place] [facility] Cardiac Catheterization Admit Source Facility Department Emergency department [facility] - [facility] Physician and Clinical Staff Initial C[place] Bi Consultant Fatoumata Mcclain,RN Bi Consultant Basim Dela Cruz,RN Recorder Vonda Polanco,RT(R) Scrub Cleo Laurent ,RT(R) Procedures Performed Procedure Location (Site) Vessel Name Angiogram LV LV Ventricle Coronary Angiograms LCA Left Coronary Coronary Angiograms RCA Right Coronary L Heart Cath PTCA PDA Prox Right Coronary PTCA RCA Dist Right Coronary Stent RCA Dist Right Coronary Wire insertion Fem Art (right) Femoral Art Equipment Time Medicinal Plant Picker Description Size Mfg Part Number Used/Scraped [id number] 08:30 [employer] WIRE, ASAHI PROWATER 180CM 180CM Used *[id number] WIRE, BALANCE MIDDLEWEIGHT [id number] 08:21 [employer] 190CM Used 190CM *[id number] TRANSDUCER, TRUWAVE [id number] 07:08 UMAÑA WILSON * Used W/STOCKCOCK *[id number] *[id number] [id number] *[id number] *[id number] *[id number] PIGTAIL ANG. 145 INFINITI [id number] CATHETER *[id number] 07:08 [employer] INDUSTRIES PACK, CCL CUSTOM * Used *[id number] 07:08 [employer] PACER PEN, SKIN DUAL W/ RULER * Used *[id number] 08:31 [employer] BALLOON, 2.0 X 15MM EUPHORA 15MM Used *[id number] BALLOON, 3.0 X 12MM NC [id number] 08:40 [employer] 12MM Used EUPHORA *[id number] 08:24 [employer] STENT, 3.0 18 INTEGRITY 3.0 18 Used *[id number] 08:26 [employer] MEDICAL 30 PACO INDEFLATOR Used *[id number] 07:08 [employer] MEDICAL SHEATH, FR6.5 PRELUDE 11CM FR 6.5 038ACT Used *[id number] 07:08 [employer] WIRE, 3MMJ .035 180CM 180CM Used *[id number] 07:08 [employer] MANIFOLD, 4 PORT * Used *[id number] 08:07 [employer] OMNIPAQUE, 350 MG, 150ML 150ML [id number] Used 08:08 [employer] OMNIPAQUE, 350 MG, 50ML 50ML [id number] Used [id number] 07:08 [employer] BLANKET,WARM AIR CCL * Used *[id number] Equipment Model, Serial, Lot Number and Expiration Data Description Model Number Serial Number Lot Number Expiration Date BALLOON, 3.0 X 12MM IA [id number] 10-13-2019 EUPHORA STENT, 3.0 18 INTEGRITY [id number] 08-07-2019 History: Current Medications Medication Dosage/Unit Route Frequency Last Date/Time Taken ASA LOVENOX History: Allergies Allergy Reaction Iodinated Contrast- Oral and IV Anaphylaxis Dye morphine Rash codeine RASH History: Risk Factors Family History of Hypertension Dyslipidemia Previous OK Previous Heart Failure Premature CAD Yes Yes Yes Yes No Prior Valve Prior PCI Prior PCIDate Prior CABG Surgery No Yes 07/30/2015 No Cerebrovascular Peripheral Artery Chronic Lung On Dialysis Diabetes Disease Disease Disease No Yes No No No History: Symptoms/Diagnosis Selection Items Chest pain History: Stress Tests Stress or Imaging Studies Performed Yes Standard Exercise Stress Test No Stress Echo No Stress Test SPECT Yes Stress Test CMR No Cardiac CTA Coronary Calcium Score No No History: Other Disease Selection Items CAD History: Other Current Smoker Packs a Day Years Used Pack Years Yes 1 36 36 Labs Hgb (g/dl) Hct (%) WBC (l/cumm) Platelets (thousands) 11.60-17.00 35.00-51.00 4.00-11.00 150.00-450.00 11.0 33.8 8.2 246 Glucose (mg/dl) BUN (mg/dl) Creatinine (mg/dl) BUN:Creatinine (1:x) 74.00-106.00 7.00-18.00 0.50-1.30 10.00-20.00 151 11 0.6 18.3 Na (meq/l) K (meq/l) 136.00-145.00 3.50-5.10 141 4.2 INR (PTT:PT) 0.90-1.10 1.2 Medication Medication Total Dose (Bolus/Oral) Medication Total Dosage/Unit 1% XYLOCAINE 20 mL ANGIOMAX BOLUS 12 mL ASPIRIN 325 mg FENTANYL 50 mcg NITRO OINTMENT 2 inches PLAVIX 600 mg VERSED 5 mg Medications (Bolus/Oral) Medication Time Given Dosage/Unit Administered By Reason NITRO OINTMENT 03/26/2018 7:28:51 AM 2 inches Patient arrived on 2 inches NITRO OINTMENT via Topical. VERSED 03/26/2018 7:53:40 AM 1 mg Jose De Jesus, Basim 1 mg VERSED given in lab by Basim Dela Cruz RN in Left Forearm via Peripheral IV. Ordered by Anjelica Holder. VERSED 03/26/2018 8:01:05 AM 1 mg Hesher, Fatoumata 1 mg VERSED given in lab by Fatoumata Mcclain RN in Left Forearm via Peripheral IV. Ordered by Ciro Holder. 1% XYLOCAINE 03/26/2018 8:02:15 AM 20 mL Ciro Holder 20 mL 1% XYLOCAINE given in lab by Ciro Holder in Right Groin via Subcutaneous. VERSED 03/26/2018 8:06:53 AM 1 mg Hesher, Fatoumata 1 mg VERSED given in lab by Fatoumata Mcclain RN in Left Forearm via Peripheral IV. Ordered by Ciro Holder. FENTANYL 03/26/2018 8:24:02 AM 50 mcg Jose De Jesus, Basim 50 mcg FENTANYL given in lab by Basim Dela Cruz RN in Left Forearm via Peripheral IV. Ordered by Ciro Holder. VERSED 03/26/2018 8:26:46 AM 1 mg Jose De Jesus, Basim 1 mg VERSED given in lab by Basim Dela Cruz RN in Left Forearm via Peripheral IV. Ordered by Anjelica Holder. ANGIOMAX BOLUS 03/26/2018 8:27:18 AM 12 mL Sarahi Fatoumata 12 mL ANGIOMAX BOLUS given in lab by Fatoumata Mcclain RN in Left Forearm via Peripheral IV. Ordered by Ciro Holder. VERSED 03/26/2018 8:30:40 AM 1 mg Jose De Jesus, Basim 1 mg VERSED given in lab by Basim Dela Cruz RN in Left Forearm via Peripheral IV. Ordered by Anjelica Holder. ASPIRIN 03/26/2018 8:51:00 AM 325 mg Jose De Jesus, Basim 325 mg ASPIRIN given in lab by Basim Dela Cruz RN via Oral. Ordered by Ciro Holder. PLAVIX 03/26/2018 8:52:23 AM 600 mg Basim Dela Cruz 600 mg PLAVIX given in lab by Basim Dela Cruz RN via Oral. Ordered by Ciro Holder. Medication (Drip) Medication Time Given Dosage/Unit Concentration/Unit Diluent (ml) Solution ANGIOMAX DRIP 03/26/2018 8:28:57 AM 1.748 mg/kg/hr 250 mg 50 NaCl .9 1.748 mg/kg/hr ANGIOMAX DRIP given in lab by Fatoumata Mcclain RN in Left Forearm via Peripheral IV. Pu mp/Drip Flow = 28.5 ml/hr using NaCl .9 with a concentration of 250 mg in 50 ml. Ordered by Ciro Holder. IV Solutions 03/26/2018 7:18:16 AM 50 mL (IV) NaCl .9 IV Solutions given in lab by Fatoumata Mcclain RN in Left Forearm via Peripheral IV. Pump/Drip Flow usi ng NaCl .9. Initial Case Assessment Cardiovascular HR Rhythm NIBP Chest Pain 57 SR 107/66 0 Edema Present Skin color Skin None Normal Warm Dry Circulatory - Right Pulses Dorsalis Pedis Femoral 2 2 Scale (0,1,2,3,4,d) Circulatory - Left Pulses Dorsalis Pedis Femoral 2 2 Scale (0,1,2,3,4,d) Neurological State Oriented to time-place- Alert Moves all extremities person Respiration - General Respiration Rate SpO2 (%) (B/min) 16 99 Chronological Log Time Study Chronological Log 7:17:58 Patient arrived via Bed. 7:17:59 Consent signed by the physician and the patient and verified by the [facility] staff. 7:18:03 Patient Name, D.O.B, / Armband Verified By R.N. 7:18:03 Pre-op and post- op instructions given; patient acknowledges understanding of instructions. 7:18:04 Verbal Stimulation=2 Physical Stimulation=2 Airway=2 Respiration=2 TOTAL=8. (0=absent, 1=li mited, 2=present) 7:18:06 Presedation assessment performed by [facility] RN. 7:18:09 Patient has been NPO for More than 6Hrs. 7:18:09 Skin Breakdown- bruises throughout body 7:18:10 Patient Warmer Placed on the Table. 7:18:13 Ashvin Prominences Protected 7:18:15 A # 20 IV was noted in the Forearm (left). Grade = 0 7:18:16 IV Solutions given in lab by Fatoumata Mcclain RN in Left Forearm via Peripheral IV. Pump/Dri p Flow using NaCl .9. 7:18:17 History and physical on the chart or being dictated. Assessment: Initial Case, HR=57 BPM, Rhythm=SR, LQAH=956/66 mmhg, Chest Pain=0, Edema=None, Col or=Normal, Skin = Warm, Dry Right Pulses: Dawood Ped=2, Femoral=2 7:18:17 Left Pulses: Dawood Ped=2, Femoral=2 Neurological: State=Alert, Ox3, ERICKSON Respiration: Resp=16 B/min, SpO2=99 % Vitals capture started with the following parameters, Patient=Adult, Interval=5 min, Initial Pre kkhcs=860 mmHg, 7:26:07 Deflation Rate=5 mmHg, Cuff placed on Unknown 7:26:44 HR=59 bpm, NCZP=230/66 mmhg, SpO2=99.0 %, Resp=15 B/min 7:28:51 Patient arrived on 2 inches NITRO OINTMENT via Topical. 7:31:09 Reference ECG taken 7:31:37 Bilateral groins prepped with 2% chlorhexidine, and draped after a 3 minute waiting time. 7:31:44 HR=61 bpm, XPFN=679/66 mmhg, OmV4=520.0 %, Resp=30 B/min 7:36:43 HR=56 bpm, SHYB=486/71 mmhg, SpO2=99.0 %, Resp=15 B/min 7:37:42 MD paged 7:40:56 Pressure channel 1 zeroed. 7:43:10 HR=55 bpm, WXIK=585/64 mmhg, SpO2=99.0 %, Resp=15 B/min, Hazel=2 7:47:24 HR=53 bpm, WXIU=802/69 mmhg, SpO2=98.0 %, Resp=21 B/min, Hazel=2 7:51:44 HR=51 bpm, GYVJ=846/73 mmhg, SpO2=99.0 %, Resp=14 B/min 7:52:38 MD arrived. 7:53:40 1 mg VERSED given in lab by Basim Dela Cruz RN in Left Forearm via Peripheral IV. Ordered by Ciro Ruiz. 7:57:32 HR=53 bpm, EAWM=024/67 mmhg, SpO2=98.0 %, Resp=10 B/min Time Out. Correct patient, correct procedure, correct physician, power injector loaded with cont rast with surgical team 7:58:11 present. Time Out Concurred by MD and individual staff in procedure. 8:00:06 Case Start 8:01:05 1 mg VERSED given in lab by Fatoumata Mcclain, JENNIFER in Left Forearm via Peripheral IV. Ordered by Ciro Holder. 8:01:44 HR=54 bpm, WZWC=433/75 mmhg, SpO2=98.0 %, Resp=11 B/min 8:02:15 20 mL 1% XYLOCAINE given in lab by Ciro Holder in Right Groin via Subcutaneous. 8:03:42 Access site was Right Femoral Artery. 8:04:07 A SHEATH, FR6.5 PRELUDE 11CM FR 6.5 was advanced into the Fem Art (right) using the Percutan eous technique. 8:05:37 A PIGTAIL ANG. 145 INFINITI CATHETER FR 6 was advanced over a wire. contrast was used for in jections. Recorded Pressure: LV, HR=54, Condition=Condition 1 8:06:38 (Left Ventricle) LV 100/10/17 8:06:45 HR=59 bpm, CNRJ=812/69 mmhg, SpO2=97.0 %, Resp=12 B/min 8:06:53 1 mg VERSED given in lab by Fatoumata Mcclain RN in Left Forearm via Peripheral IV. Ordered by Ciro Holder. 8:08:20 The LV was injected at 10 cc/sec for a total of 40. OMNIPAQUE, 350 MG, 50ML 50ML used. Recorded Pressure: LV, Ao, HR=65, Condition=Condition 1 8:08:54 (Left Ventricle) LV 98/11/22, (Aorta) Ao 97/60/75 8:09:20 Catheter was removed A JL 4.0 INFINITI CATHETER FR 6 was advanced over a wire. OMNIPAQUE, 350 MG, 150ML 150ML was use d for 8:10:03 injections. 8:10:50 The LCA was injected and visualized at various angles. OMNIPAQUE, 350 MG, 150ML 150ML used. Recorded Pressure: Ao, HR=59, Condition=Condition 1 8:11:01 (Aorta) Ao 102/63/80 8:11:46 HR=58 bpm, NGUN=222/71 mmhg, SpO2=99.0 %, Resp=11 B/min 8:12:03 Catheter was removed A 3DRC INFINITI CATHETER FR 6 was advanced over a wire. OMNIPAQUE, 350 MG, 150ML 150ML was used for 8:13:06 injections. 8:14:17 The RCA was injected and visualized at various angles. OMNIPAQUE, 350 MG, 150ML 150ML used. 8:16:45 HR=62 bpm, IECZ=535/75 mmhg, SpO2=97.0 %, Resp=9 B/min 8:17:28 Catheter was removed A JR 4.0 GUIDE CATHETER FR 6 was advanced over a wire. OMNIPAQUE, 350 MG, 150ML 150ML was used f or 8:20:00 injections. 8:21:50 HR=58 bpm, TKYB=388/75 mmhg, SpO2=98.0 %, Resp=16 B/min 8:23:42 A WIRE, BALANCE MIDDLEWEIGHT 190CM 190CM was inserted via Fem Art (right). 8:23:46 Interventional wire has crossed the lesion 8:24:02 50 mcg FENTANYL given in lab by Basim Dela Cruz RN in Left Forearm via Peripheral IV. Ordered by Ciro Holder. An STENT, 3.0 18 INTEGRITY 3.0 18 Bare Metal Stent was inserted through a JR 4.0 GUIDE CATHETER FR 6 over a 8:25:04 WIRE, BALANCE MIDDLEWEIGHT 190CM 190CM. A STENT, 3.0 18 INTEGRITY 3.0 18 was deployed using a 30 PACO INDEFLATOR at 14 atmospheres for 30 seconds in 8:25:49 the RCA Dist. 8:26:46 1 mg VERSED given in lab by Basim Dela Cruz RN in Left Forearm via Peripheral IV. Ordered by Ciro Ruiz. 12 mL ANGIOMAX BOLUS given in lab by Fatoumata Mcclain RN in Left Forearm via Peripheral IV. Order ed by Gallo, 8:27:18 Ciro. 8:27:26 HR=62 bpm, HZCR=660/82 mmhg, SpO2=99.0 %, Resp=14 B/min 1.748 mg/kg/hr ANGIOMAX DRIP given in lab by Fatoumata Mcclain RN in Left Forearm via Peripheral I V. Pump/Drip Flow 8::57 = 28.5 ml/hr using NaCl .9 with a concentration of 250 mg in 50 ml. Ordered by Ciro Holder. 8:29:29 Delivery device removed 8:30:40 1 mg VERSED given in lab by Basim Dela Cruz RN in Left Forearm via Peripheral IV. Ordered by Ciro Ruiz. 8:31:21 A WIRE, ASAHI PROWATER 180CM 180CM was inserted via Fem Art (right). 8:32:41 HR=58 bpm, IGQF=591/77 mmhg, SpO2=98.0 %, Resp=8 B/min 8:34:31 Prowater Wire removed for reshaping 8:35:01 A WIRE, ASAHI PROWATER 180CM 180CM was inserted via Fem Art (right). 8:36:47 HR=62 bpm, BINH=019/88 mmhg, SpO2=97.0 %, Resp=15 B/min A BALLOON, 2.0 X 15MM EUPHORA 15MM was inserted over WIRE, ASAHI PROWATER 180CM 180CM via the Fe m Art 8:37:18 (right). A BALLOON, 2.0 X 15MM EUPHORA 15MM over a WIRE, ASAHI PROWATER 180CM 180CM in the PDA Prox was i nflated 8:38:06 using a 30 PACO INDEFLATOR at 20 paco for 30 sec. 8:39:06 Balloon Removed. A BALLOON, 3.0 X 12MM NC EUPHORA 12MM was inserted over WIRE, BALANCE MIDDLEWEIGHT 190CM 190CM v ia 8:41:19 the Fem Art (right). 8:41:46 HR=61 bpm, QUFG=193/90 mmhg, SpO2=98.0 %, Resp=10 B/min A BALLOON, 3.0 X 12MM NC EUPHORA 12MM over a WIRE, BALANCE MIDDLEWEIGHT 190CM 190CM in the RCA D ist 8:41:46 was inflated using a 30 PACO INDEFLATOR at 20 paco for 20 sec. 8:42:00 Balloon Removed. 8:42:30 Wire removed 8:42:32 Catheter was removed 8:42:57 Case End 8:46:49 HR=60 bpm, OYPH=236/91 mmhg, Resp=9 B/min 8:46:58 In the Fem Art (right) the SHEATH, FR6.5 PRELUDE 11CM FR 6.[address] by Ciro Holder. 8:47:04 Sterile dressing applied to site 8:47:05 No case complications noted. 8:47:06 Cine recording checked. 8:47:07 Holding Area notified of successful intervention. 8:47:09 Bedside Report will be given. 8:47:10 Implantable Device card placed in patient's chart. 8:47:14 A Left Heart Cath was performed. 8:51:00 325 mg ASPIRIN given in lab by Basim Dela Cruz, RN via Oral. Ordered by Ciro Holder. 8:52:23 600 mg PLAVIX given in lab by Basim Dela Cruz, RN via Oral. Ordered by Ciro Holder. 8:52:27 HR=62 bpm, TMFP=144/67 mmhg, Resp=10 B/min 8:56:00 Patient moved to main [facility] 8:56:49 HR=55 bpm, AFNZ=158/82 mmhg, Resp=17 B/min 9:01:53 Vitals capture stopped. End Study - Contrast Media Used In Study Contrast Total Opened (mL) Total Used (mL) Total Wasted (mL) Omnipaque 165 165 0 End Study - Maximum Contrast Load Max Contrast Load (mL) 679.2 End Study - Radiation Exposure Fluoro Time (minutes) 11.8 End Study - Patient Disposition Complications Transferred To Interventional Outcome No Telemetry Bed successful
[2018-03-26] MEDS ORDERED: HALOPERIDOL LACTATE 5 MG/ML AMP IV PUSH ONE (09:15)
[2018-03-26] MEDS ORDERED: LORazepam 2 MG/ML VIAL IV PUSH ONE (09:15)
--- NOTE | 2018-03-26 09:18 | MA ---
cc: Ciro Holder MD DATE: 03/26/2018 PROCEDURE PERFORMED: Left heart catheterization, left ventriculography, coronary angiography, primary stenting of the distal right coronary artery into the right posterolateral branch, balloon angioplasty through the side of the stent in the right coronary artery of the posterior descending artery branch. 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 DESCRIPTION OF PROCEDURE: The patient was brought to the cardiac catheterization lab in the fasting state. The right groin was prepped and draped in a sterile fashion. Using 1% lidocaine for local anesthesia, a 6-1/2 Yi sheath was placed in the right femoral artery. Her case was complicated by the fact that she was extremely uncooperative and belligerent. A large amount of sedatives were given, which would temporarily quiet her and then she would get belligerent and uncooperative again. A total of 5 mg of Versed and 50 mcg of fentanyl were given during the case. This made the case especially challenging because she would not lie still or follow directions. An angled pigtail catheter was used to measure left ventricular pressure followed by a pullback. Coronary angiography was completed using a left 4 and 3DRC catheter. She had a severe stenosis in a distal right coronary artery that I felt would not be something that could be treated medically, so I decided to perform intervention. A 6-Yi right 4 Ángela guiding catheter provided excellent backup. The distal right coronary artery into the posterolateral branch was wired with a BMW wire. I then directly stented the posterolateral branch utilizing a 3.0 x 18 Integrity taken to 14 atmospheres. An excellent angiographic result was achieved in the right coronary artery, except the posterior descending artery branch, which started with a 60-70% ostial stenosis, now had a 90% ostial stenosis. The patient was complaining of chest pain, but the lesion was severe enough that I thought it needed rescued. I used a second wire to wire the PDA branch and ballooned it with a 2.0 mm balloon taken to 20 atmospheres. The PDA branch looked substantially improved with good flow. I did a final inflation in the stent with a 3.0 noncompliant balloon at 20 atmospheres and angiography demonstrates a very suitable appearance. She had no chest pain. I was unable to use a closure device due to the fact that she touched her groin at least on one occasion. Note that ChloraPrep was repeated, but I did not think that the groin was sterile enough to adequately close her. She is being loaded with 600 of Plavix. The sheath is being sewn in to be removed later manually. FINDINGS: Hemodynamics: Left ventricular pressure is 102/63 with a mean of 80. Left ventricular pressure was 98/11 with an end diastolic pressure of 22. Left ventriculography: The left ventriculography shows normal left ventricular function with an EF of 60%. Coronary angiography: 1. The left main coronary artery appears normal. 2. The left anterior descending artery proximal stent is widely patent. There is no stenoses seen in the left system. 3. The circumflex artery appears normal. 4. The right coronary artery has a patent distal stent. Distal to the stent is about a 6 mm segment before the PDA branch. The PDA branch has a 70% ostial stenosis. The distal right coronary artery extending into the posterolateral branch has an 80% stenosis. Results of Intervention: Following stenting of the distal right into the posterolateral branch, a 0% residual stenosis had been achieved. Following balloon angioplasty of the PDA branch, about a 50% stenosis had been achieved with good flow. CONCLUSIONS: 1. Successful complex intervention on a severe stenosis of the distal right coronary artery. 2. Preserved left ventricular function. 3. Elevated left ventricular end diastolic pressure. 4. Very difficult patient due to her uncooperativeness and belligerence. MD NATIVIDAD Davila/NANI , 08:54 AM , 09:17 AM
[2018-03-26] MEDS ORDERED: BIVALIRUDIN INJ 250 MG in SODIUM CHLORIDE 0.9% INJ 50 ML IV SCH (10:00)
[2018-03-26] MEDS: ENOXAPARIN SODIUM 40 MG/0.4 ML SYRINGE SQ SCH (11:34)
--- NOTE | 2018-03-26 17:06 | HHI.PR ---
Subjective Remarks The pt was resting comfortably in bed. She had some mild pain at the site of the catheterization. No acute complaints. Apparently she was quite agitated following the catheterization. Discussed with nursing at the bedside. Objective Vitals Vital Signs Date Time Temp Pulse Resp B/P (MAP) Pulse Ox O2 Delivery O2 Flow Rate FiO2 03/26/18 09:10 96 Room Air 03/26/18 08:40 97 21 03/26/18 04:00 45 03/26/18 03:46 21 03/26/18 02:00 97.6 57 16 113/78 (90) 96 03/25/18 20:32 97.6 62 18 92/53 (66) 97 03/25/18 19:19 20 I/O 03/25/18 03/25/18 03/25/18 03/26/18 03/26/18 03/26/18 07:00 15:00 23:00 07:00 15:00 23:00 Intake Total 200 ml 720 ml Balance 200 ml 720 ml Intake Oral 200 ml 720 ml # Voids 4 Result Diagram: 03/26/18 0531 03/26/18 0531 Imaging Last Impressions Chest X-Ray 03/24/18 1032 Signed Impressions: Service Date/Time: Saturday, March 24, 2018 10:55 - CONCLUSION: No acute cardiopulmonary disease identified. Adelso Pelayo MD Objective Remarks GENERAL: This is a well-nourished, well-developed patient, in no apparent distress. HEENT: Head is atraumatic and normocephalic. Neck is supple without lymphadenopathy and trachea is midline. No JVD or carotid bruits. CARDIOVASCULAR: Regular rate and rhythm without murmurs, gallops, or rubs. RESPIRATORY: Clear to auscultation. Breath sounds equal bilaterally. No wheezes , rales, or rhonchi. Chest wall is nontender. No use of accessory muscles. GASTROINTESTINAL: Abdomen is nontender, nondistended. Abdomen soft. No obvious pulsatile mass or bruit. MUSCULOSKELETAL: Patient is moving upper and lower extremities freely. No edema. Strong pulses in upper and lower extremities. NEUROLOGICAL: Patient is alert and oriented. Cranial nerves 2-12 are grossly intact. No focal deficits and speech is clear. PSYCH: Calm. Procedures Cardiac cath 03/26 Medications and IVs Current Medications Medications (Trade) Dose Ordered Sig/Courtney Route Start Time Stop Time Status Last Admin (NS Flush) 2 ml UNSCH PRN IVF 03/24/18 10:45 (Tylenol) 500 mg Q4H PRN PO 03/24/18 13:30 (Zofran Inj) 4 mg Q6H PRN IV PUSH 03/24/18 13:30 03/25/18 20:37 (Protonix) 40 mg DAILY PO 03/24/18 13:30 03/25/18 09:59 (Aspirin) 325 mg DAILY PO 03/25/18 09:00 03/25/18 09:58 (Xanax) 0.25 mg Q8H PRN PO 03/24/18 13:30 03/26/18 05:38 (Duoneb Neb) 1 ampule Q4HR NEB PRN INH 03/24/18 13:30 (Catapres) 0.1 mg Q4H PRN PO 03/24/18 13:30 (Plavix) 75 mg DAILY PO 03/25/18 09:00 03/25/18 09:59 (Lopressor) 25 mg BID PO 03/24/18 21:00 03/25/18 20:36 (Lipitor) 40 mg DAILY PO 03/24/18 18:30 03/25/18 09:58 (Lovenox Inj) 40 mg Q24H SQ 03/25/18 12:00 03/25/18 13:01 (Mycostatin Powder) 1 applic Q12HR TOPICAL 03/25/18 13:00 03/25/18 20:38 (Nitroglycerin 2% Oint) 1 inch Q6HR TOPICAL 03/25/18 12:00 03/27/18 01:00 03/26/18 05:38 (Pepcid) 20 mg BID PO 03/25/18 21:00 03/25/18 20:37 Sodium Chloride 1,000 ml @ 100 mls/hr Q10H IV 03/25/18 10:42 03/30/18 10:41 03/26/18 05:38 (Aspirin) 325 mg ADMINISTRATION PHYSICIAN PO 03/25/18 10:45 03/29/18 10:44 (Benadryl) 50 mg ADMINISTRATION PHYSICIAN PO 03/25/18 10:45 03/29/18 10:44 03/26/18 05:38 (Valium) 5 mg ADMINISTRATION PHYSICIAN PO 03/25/18 10:45 03/29/18 10:44 03/26/18 05:37 (Graham 10-325 Mg) 1 tab Q4H PRN PO 03/25/18 10:45 03/26/18 15:27 Sodium Chloride 1,000 ml @ 100 mls/hr Q10H IV 03/26/18 08:56 03/26/18 20:55 (NS Flush) 2 ml UNSCH PRN IV FLUSH 03/26/18 09:00 (NS Flush) 2 ml BID IV FLUSH 03/26/18 09:00 (Morphine Inj) 2 mg Q30M PRN IV PUSH 03/26/18 09:00 (Aspirin Chew) 81 mg DAILY PO 03/26/18 09:00 (Plavix) 75 mg DAILY PO 03/27/18 09:00 (Zofran Inj) 4 mg Q4H PRN IV PUSH 03/26/18 09:00 (Imdur) 30 mg DAILY@07 PO 03/27/18 07:00 A/P Assessment and Plan Chest pain She had a nonischemic Lexiscan January 2018. Admitted to chest pain center initially. Trops flat. S/p cath 03/26, stent placed to distal RCA. - telemetry. - cardiology following. Continue cardiac regimen. - pain control and oxygen as needed. Elevated LFTs Unsure of etiology. Improving. - trend CMP. Tobacco abuse The pt continues to smoke. - Patient has been counseled on importance of smoking cessation. Hypokalemia Possibly s/t decreased PO intake. - monitor and replete as needed. Rash Located on groin. - Nystatin powder. PPx: Lovenox Discharge Planning Await cardiac clearance Aleks Hodges DO Mar 26, 2018 17:06
--- NOTE | 2018-03-26 17:20 | ECHRPT ---
Indication: CAD CONCLUSIONS The left ventricular systolic function is normal with an estimated ejection fraction in the range of 55-60%. Wall thickness is measured at the upper limits of normal. Normal left ventricular size. Mitral annular calcification is present. Mild mitral valve regurgitation. There is mild tricuspid valve regurgitation. The estimated pulmonary arterial pressure is 34.8 mmHg. Trivial pulmonary valve regurgitation. BP: 113 / 73 HR: 61 Rhythm: Sinus MEASUREMENTS (Male / Female) Normal Values Technical Quality:Fair 2D ECHO LV Diastolic Diameter PLAX 4.3 cm 4.2 - 5.9 / 3.9 - 5.3 cm LV Systolic Diameter PLAX 2.9 cm IVS Diastolic Thickness 1.1 cm 0.6 - 1.0 / 0.6 - 0.9 cm LVPW Diastolic Thickness 0.8 cm 0.6 - 1.0 / 0.6 - 0.9 cm LV Relative Wall Thickness 0.4 RV Internal Dim ED PLAX 3.3 cm LVOT Diameter 2.1 cm LA Systolic Diameter LX 3.5 cm 3.0 - 4.0 / 2.7 - 3.8 cm M-MODE Aortic Root Diameter MM 2.5 cm LA Systolic Diameter MM 3.6 cm LA Ao Ratio MM 1.4 AV Cusp Separation MM 1.9 cm DOPPLER AV Peak Velocity 182.0 cm/s AV Peak Gradient 13.2 mmHg LVOT Peak Velocity 134.0 cm/s LVOT Peak Gradient 7.2 mmHg AV Area Cont Eq pk 2.6 cm MV Area PHT 2.6 cm Mitral E Point Velocity 98.7 cm/s Mitral A Point Velocity 85.3 cm/s Mitral E to A Ratio 1.2 LV E' Lateral Velocity 9.7 cm/s Mitral E to LV E' Lateral Ratio 10.2 LV E' Septal Velocity 8.4 cm/s Mitral E to LV E' Septal Ratio 11.8 TR Peak Velocity 249.0 cm/s TR Peak Gradient 24.8 mmHg Right Atrial Pressure 10.0 mmHg Pulmonary Artery Systolic Pressu 34.8 mmHg Right Ventricular Systolic Press 34.8 mmHg FINDINGS LEFT VENTRICLE The left ventricular systolic function is normal with an estimated ejection fraction in the range of 55-60%. Wall thickness is measured at the upper limits of normal. Normal left ventricular size. RIGHT VENTRICLE Normal right ventricular size and systolic function. LEFT ATRIUM The left atrial size is normal. RIGHT ATRIUM The right atrial size is normal. ATRIAL SEPTUM Normal atrial septal thickness without atrial level shunting by limited color doppler interrogation. AORTA The aortic root and proximal ascending aorta are normal in size on limited imaging. MITRAL VALVE Mitral annular calcification is present. Mild mitral valve regurgitation. AORTIC VALVE Trileaflet aortic valve. No aortic valve stenosis or regurgitation. TRICUSPID VALVE Structurally normal tricuspid valve. There is mild tricuspid valve regurgitation. The estimated pulmonary arterial pressure is 34.8 mmHg. PULMONARY VALVE Trivial pulmonary valve regurgitation. VESSELS The inferior vena cava is normal in size. PERICARDIUM No pericardial effusion. Yuan Dodd MD, FACC (Electronically Signed) Final Date:26 March 2018 17:20
[2018-03-26] MEDS: SODIUM CHLORIDE 0.9% FLUSH 10 ML FLUSH IV FLUSH SCH (21:41)
[2018-03-27] VITALS (16 sets, daily range): BP systolic 36–121; BP diastolic 54–79; PULSE 54–85; RESP 16–19; TEMP 97.4–98; O2SAT 97–100
[2018-03-27] MEDS: NITROGLYCERIN 2% OINT 1 GM PACKET TOPICAL SCH (00:22)
[2018-03-27] MEDS: SODIUM CHLOR 0.9% 1000 ML INJ 1,000 ML IV SCH (02:42)
[2018-03-27] MEDS: ACETAMINOPHEN/HYDROcodone 325 MG/10 MG TAB PO PRN ×2 (04:06→08:20)
[2018-03-27] MEDS: ALPRAZolam 0.25 MG TAB PO PRN ×2 (04:06→12:16)
[2018-03-27] MEDS ORDERED: ISOSORBIDE MONONITRATE 30 MG CR TAB (IMDUR) PO SCH (07:00)
[2018-03-27] MEDS: SODIUM CHLORIDE 0.9% FLUSH 10 ML FLUSH IV FLUSH SCH (09:00)
[2018-03-27] MEDS ORDERED: CLOPIDOGREL 75 MG TAB PO SCH (09:00)
[2018-03-27] MEDS: ASPIRIN 81 MG CHEW TAB PO SCH (09:00)
[2018-03-27] MEDS: METOPROLOL TARTRATE 25 MG TAB PO SCH (11:09)
[2018-03-27] MEDS: CLOPIDOGREL 75 MG TAB PO SCH (11:10)
[2018-03-27] MEDS: ATORVASTATIN 40 MG TAB PO SCH (11:11)
[2018-03-27] MEDS: ASPIRIN 325 MG TAB PO SCH (11:11)
[2018-03-27] MEDS: FAMOTIDINE 20 MG TAB PO SCH (11:12)
[2018-03-27] MEDS: NYSTATIN 100,000 U/GM PWD 15 GM BTL TOPICAL SCH (11:13)
[2018-03-27] MEDS: PANTOPRAZOLE SOD 40 MG DELAYED RELEASE TAB PO SCH (11:13)
[2018-03-27 11:29] LABS: AUTOMATED NEUTROPHIL # 5.5 TH/MM3 (1.8-7.7); BASOPHIL % 0.3 % (0.0-2.0); EOSINOPHIL % 0.5 % (0.0-4.0); HEMATOCRIT 33.4 % (35.0-46.0); HEMOGLOBIN 10.9 GM/DL (11.6-15.3); LYMPH % 29.3 % (9.0-44.0); LYMPHOCYTE # 2.6 TH/MM3 (1.0-4.8); MEAN CELL VOLUME 91.5 FL (80.0-100.0); MEAN CORPUSCULAR HEMOGLOBIN 29.8 PG (27.0-34.0); MEAN CORPUSCULAR HGB CONC 32.5 % (32.0-36.0); MEAN PLATELET VOLUME 7.3 FL (7.0-11.0); MONO % 7.4 % (0.0-8.0); MONOCYTE # 0.7 TH/MM3 (0-0.9); NEUT % 62.5 % (16.0-70.0); PLATELET COUNT 260 TH/MM3 (150-450); RED BLOOD COUNT 3.66 MIL/MM3 (4.00-5.30); RED CELL DISTRIBUTION WIDTH 14.4 % (11.6-17.2); WHITE BLOOD COUNT 8.8 TH/MM3 (4.0-11.0)
[2018-03-27 11:49] LABS: ALBUMIN 2.9 GM/DL (3.4-5.0); BICARBONATE 25.8 MEQ/L (21.0-32.0); CALCIUM 8.4 MG/DL (8.5-10.1); CREATININE 0.66 MG/DL (0.50-1.00)
[2018-03-27] MEDS ORDERED: METO25TA3 PO (11:50)
[2018-03-27] MEDS ORDERED: DIAZ5 PO (11:50)
[2018-03-27] MEDS ORDERED: ISOS30TA3 PO (11:50)
[2018-03-27] MEDS ORDERED: PANT40TA3 PO (11:50)
[2018-03-27] MEDS ORDERED: PLAV75TA29 PO (11:50)
[2018-03-27] MEDS ORDERED: ASPI81 PO (11:50)
[2018-03-27] MEDS ORDERED: ATOR40TA16 PO (11:50)
[2018-03-27 11:52] LABS: DIRECT BILIRUBIN ADULT 0.1 MG/DL (0.0-0.2); INDIRECT BILIRUBIN 0.1 MG/DL (0.0-0.8); TOTAL BILIRUBIN ADULT 0.2 MG/DL (0.2-1.0)
[2018-03-27] MEDS ORDERED: HYDR-3583 PO (11:53)
[2018-03-27] MEDS: ENOXAPARIN SODIUM 40 MG/0.4 ML SYRINGE SQ SCH (12:00)
--- NOTE | 2018-03-27 12:06 | HHI.DS ---
Discharge Summary Admission Date Mar 24, 2018 at 11:27 Discharge Date: Mar 27, 2018 Admitting Diagnosis Chest pain, rule out ACS (1) CAD (coronary artery disease) ICD Code: I25.10 - CAD (coronary artery disease) Status: Acute (2) Chest pain ICD Code: R07.9 - Chest pain Status: Acute Procedures Cardiac cath 03/26 Brief History - From Admission This is a 52-year-old female history of CAD with history of 2 stents in 2014 that presents to ED with complaint of chest discomfort that began yesterday while she was lying in bed. Describes a central chest pressure radiating to her left shoulder. Lasted 30 seconds but continued to recur throughout the evening. States it is a similar type of discomfort that she had when needing stents in 2014. It occurred again soon after waking up this morning. Same type of pressure. Lasted a little longer may be a few minutes. She was short of breath with it. No nausea or diaphoresis. States she has been compliant with medication including Plavix, metoprolol, a statin, and aspirin. She has not followed up with a armature connector since having stents placed in 2014. She was at the [facility] in January and had a nonischemic Lexiscan . Currently no discomfort. States she is anxious but does not think that is causing her discomfort. States took a Valium last night which did not improve her symptoms. She missed to being under a lot of stress. States her son committed suicide 7 months ago. CBC/BMP: 03/27/18 1116 03/27/18 1116 Significant Findings Laboratory Tests Test 03/24/18 18:07 03/24/18 23:00 03/25/18 04:57 03/25/18 11:53 Troponin I LESS THAN 0.02 NG/ML LESS THAN 0.02 NG/ML Aspartate Amino Transf (AST/SGOT) 72 U/L (15-37) Alanine Aminotransferase (ALT/SGPT) 118 U/L (10-53) Total Protein 6.3 GM/DL (6.4-8.2) Albumin 3.1 GM/DL (3.4-5.0) Cholesterol Level 108 MG/DL (120-200) Chloride Level 112 MEQ/L (98-107) Test 03/25/18 15:21 03/26/18 05:31 03/27/18 11:16 Red Blood Count 3.69 MIL/MM3 (4.00-5.30) 3.66 MIL/MM3 (4.00-5.30) Hemoglobin 11.0 GM/DL (11.6-15.3) 10.9 GM/DL (11.6-15.3) Hematocrit 33.8 % (35.0-46.0) 33.4 % (35.0-46.0) Neutrophils (%) (Auto) 86.1 % (16.0-70.0) Lymphocytes # (Auto) 0.9 TH/MM3 (1.0-4.8) Random Glucose 151 MG/DL (74-106) Total Protein 6.1 GM/DL (6.4-8.2) 6.0 GM/DL (6.4-8.2) Albumin 2.9 GM/DL (3.4-5.0) 2.9 GM/DL (3.4-5.0) Aspartate Amino Transf (AST/SGOT) 45 U/L (15-37) Alanine Aminotransferase (ALT/SGPT) 100 U/L (10-53) 83 U/L (10-53) Chloride Level 112 MEQ/L (98-107) 111 MEQ/L (98-107) Calcium Level 8.4 MG/DL (8.5-10.1) Total Creatine Kinase 25 U/L (26-192) Imaging Last Impressions Chest X-Ray 03/24/18 1032 Signed Impressions: Service Date/Time: Saturday, March 24, 2018 10:55 - CONCLUSION: No acute cardiopulmonary disease identified. Adelso Pelayo MD PE at Discharge GENERAL: This is a well-nourished, well-developed patient, in no apparent distress. HEENT: Head is atraumatic and normocephalic. Neck is supple without lymphadenopathy and trachea is midline. No JVD or carotid bruits. CARDIOVASCULAR: Regular rate and rhythm without murmurs, gallops, or rubs. RESPIRATORY: Clear to auscultation. Breath sounds equal bilaterally. No wheezes , rales, or rhonchi. Chest wall is nontender. No use of accessory muscles. GASTROINTESTINAL: Abdomen is nontender, nondistended. Abdomen soft. No obvious pulsatile mass or bruit. MUSCULOSKELETAL: Patient is moving upper and lower extremities freely. No edema. Strong pulses in upper and lower extremities. NEUROLOGICAL: Patient is alert and oriented. Cranial nerves 2-12 are grossly intact. No focal deficits and speech is clear. PSYCH: Calm. Pt update on day of discharge Patient feels well. Had 2 brief episodes of chest pain earlier this morning but have resolved. She is chest pain-free at this time. She tells me that she is anxious and usually takes benzos to calm down. She lost her son 7 months ago and since has been very anxious. Denies any chest pain at this time, nausea vomiting or shortness of breath. She has a appointment with her primary care physician in a week. Hospital Course Patient admitted with chest pain She had a nonischemic Lexiscan January 2018. Admitted to chest pain center initially. Trops flat. S/p cath 03/26, stent placed to distal RCA. - cardiology following. Continue cardiac regimen. - pain control and oxygen as needed. Prescription in chart. Elevated LFTs Unsure of etiology. Improving. - trend CMP. Tobacco abuse The pt continues to smoke. - Patient has been counseled on importance of smoking cessation. Hypokalemia Possibly s/t decreased PO intake. - monitor and replete as needed. Rash Located on groin. - Nystatin powder. Pt Condition on Discharge: Stable Discharge Disposition: Discharge Home Discharge Time: > 30 minutes Discharge Instructions DIET: Follow Instructions for: Heart Healthy Diet, Low Sodium Diet Activities you can perform: See Additionl Instruction Other Activity Instructions: per cards Jennifer Croft MD Mar 27, 2018 12:06
--- NOTE | 2018-03-27 13:16 | EKG ---
Date Performed: 03/27/2018 Time Performed: 04:37:44 PTAGE: 52 years EKG: Sinus rhythm ST segment is noted in the inferolateral leads, likely reflects early repolarization Since previous tracing, no significant change noted Abnormal ECG PREVIOUS TRACING : 03/25/2018 00.49 DOCTOR: Paras Bradley Interpretating Date/Time 03/27/2018 13:14:32
--- NOTE | 2018-03-27 17:53 | PD.CARD.PN ---
Subjective Subjective Remarks Pt. seen 0;30AM. No angina Objective Vital Signs / I&O Vital Signs Date Time Temp Pulse Resp B/P (MAP) Pulse Ox O2 Delivery O2 Flow Rate FiO2 03/27/18 12:00 58 03/27/18 11:00 97.4 59 16 36/59 (51) 100 03/27/18 11:00 70 03/27/18 10:00 64 03/27/18 09:20 18 03/27/18 09:00 85 03/27/18 08:24 97.6 61 16 116/79 (91) 98 03/27/18 08:00 76 03/27/18 07:00 57 03/27/18 06:00 65 03/27/18 05:00 62 03/27/18 04:10 72 03/27/18 04:02 97.8 78 19 121/74 (90) 98 03/27/18 04:00 63 03/27/18 02:00 54 03/27/18 01:00 56 03/27/18 01:00 56 03/27/18 00:22 98.0 57 16 116/54 (74) 97 03/27/18 00:00 60 03/27/18 00:00 60 03/26/18 23:00 58 03/26/18 22:00 74 03/26/18 21:30 98.1 62 15 103/58 (73) 97 03/26/18 21:30 64 03/26/18 21:00 64 03/26/18 20:00 62 03/26/18 19:00 58 03/26/18 18:01 62 I/O 03/26/18 03/26/18 03/26/18 03/27/18 03/27/18 03/27/18 07:00 15:00 23:00 07:00 15:00 23:00 Intake Total 720 ml 562 ml 480 ml Output Total 200 ml Balance 720 ml 362 ml 480 ml Intake Oral 720 ml 562 ml 480 ml Output Urine Total 200 ml # Voids 4 2 1 # Bowel Movements 0 Physical Exam Alert Chest clear CV S1S2 RRR abd soft Ext right groin OK, No C/C/E Laboratory Laboratory Tests Test 03/27/18 11:16 White Blood Count 8.8 TH/MM3 Red Blood Count 3.66 MIL/MM3 Hemoglobin 10.9 GM/DL Hematocrit 33.4 % Mean Corpuscular Volume 91.5 FL Mean Corpuscular Hemoglobin 29.8 PG Mean Corpuscular Hemoglobin Concent 32.5 % Red Cell Distribution Width 14.4 % Platelet Count 260 TH/MM3 Mean Platelet Volume 7.3 FL Neutrophils (%) (Auto) 62.5 % Lymphocytes (%) (Auto) 29.3 % Monocytes (%) (Auto) 7.4 % Eosinophils (%) (Auto) 0.5 % Basophils (%) (Auto) 0.3 % Neutrophils # (Auto) 5.5 TH/MM3 Lymphocytes # (Auto) 2.6 TH/MM3 Monocytes # (Auto) 0.7 TH/MM3 Eosinophils # (Auto) 0.0 TH/MM3 Basophils # (Auto) 0.0 TH/MM3 CBC Comment DIFF FINAL Differential Comment Blood Urea Nitrogen 16 MG/DL Creatinine 0.66 MG/DL Random Glucose 106 MG/DL Total Protein 6.0 GM/DL Albumin 2.9 GM/DL Calcium Level 8.4 MG/DL Alkaline Phosphatase 76 U/L Aspartate Amino Transf (AST/SGOT) 35 U/L Alanine Aminotransferase (ALT/SGPT) 83 U/L Total Bilirubin 0.2 MG/DL Direct Bilirubin 0.1 MG/DL Sodium Level 145 MEQ/L Potassium Level 3.6 MEQ/L Chloride Level 111 MEQ/L Carbon Dioxide Level 25.8 MEQ/L Anion Gap 8 MEQ/L Estimat Glomerular Filtration Rate 93 ML/MIN Indirect Bilirubin 0.1 MG/DL Total Creatine Kinase 25 U/L Assessment and Plan Problem List: (1) Angina pectoris ICD Codes: I20.9 - Angina pectoris, unspecified (2) CAD (coronary artery disease) ICD Codes: I25.10 - CAD (coronary artery disease) Status: Acute (3) Stented coronary artery ICD Codes: Z95.5 - Presence of coronary angioplasty implant and graft (4) Hyperlipidemia ICD Codes: E78.5 - Hyperlipidemia Status: Acute (5) Tobacco abuse ICD Codes: Z72.0 - Tobacco use Plan: counseled Assessment and Plan stable for discharge Ciro Holder MD Mar 27, 2018 17:53
== END 2018-03-27 14:07 | disposition home or self-care (01) ==
LOC: NEPC 10:02 → NEDA 11:27 → NEPGCP 13:23 → HCIS 03-26 08:42
PROVIDERS: ADMIT Hospitalist; ATTEND Hospitalist
DX: R07.89 Other chest pain (principal); R11.0 Nausea; R45.1 Restlessness and agitation; E78.5 Hyperlipidemia, unspecified; R00.1 Bradycardia, unspecified; I25.10 Atherosclerotic heart disease of native coronary artery without angina pectoris; I10 Essential (primary) hypertension; E78.00 Pure hypercholesterolemia, unspecified; R06.02 Shortness of breath; M54.9 Dorsalgia, unspecified; G89.29 Other chronic pain; K21.9 Gastro-esophageal reflux disease without esophagitis; R79.89 Other specified abnormal findings of blood chemistry; E87.6 Hypokalemia; R21 Rash and other nonspecific skin eruption; I25.2 Old myocardial infarction; F41.9 Anxiety disorder, unspecified; F32.9 Major depressive disorder, single episode, unspecified; M41.9 Scoliosis, unspecified; F17.210 Nicotine dependence, cigarettes, uncomplicated; Z95.5 Presence of coronary angioplasty implant and graft; Z86.73 Personal history of transient ischemic attack (TIA), and cerebral infarction without residual deficits; Z79.899 Other long term (current) drug therapy; Z79.82 Long term (current) use of aspirin; Z79.02 Long term (current) use of antithrombotics/antiplatelets
CPT/HCPCS: 71046; 80048; 80053; 80061; 80076; 82550; 82552; 83735; 84484; 85025; 85576; 85610; 92928; 93005; 93306; 93458; 96361; 96374; 99152; 99153; 99285; C1725; C1769; C1876; C1887; C1893; G0378; J0583; J1630; J1644; J1650; J2060; J2250; J2405; J3010; J7030; J7512; Q0163; Q9967

== ENCOUNTER 2018-04-06 14:27 | Emergency (ER) | payer SELFPAY ==
[2018-04-06] MEDS: ERYTHROMYCIN 0.5% OPTH OINT 3.5 GM TUBO RIGHT EYE (17:00)
== END 2018-04-06 17:04 | disposition home or self-care (01) ==
LOC: PHEFT 14:27
DX: S05.01XA Injury of conjunctiva and corneal abrasion without foreign body, right eye, initial encounter (principal); X58.XXXA Exposure to other specified factors, initial encounter; F41.9 Anxiety disorder, unspecified; F32.9 Major depressive disorder, single episode, unspecified; E78.00 Pure hypercholesterolemia, unspecified; I25.10 Atherosclerotic heart disease of native coronary artery without angina pectoris; I10 Essential (primary) hypertension; F17.200 Nicotine dependence, unspecified, uncomplicated; Z86.73 Personal history of transient ischemic attack (TIA), and cerebral infarction without residual deficits
CPT/HCPCS: 99283

== ENCOUNTER 2018-04-17 05:03 | Emergency (ER) | payer SELFPAY ==
[~2018-04-17] VITALS: Ht 162.6 cm; Wt 83.1 kg
[~2018-04-17 05:03] MED LIST changes: +ATOR40TA16 PO; -CLON0.2T PO; +ERYTOIN10 RIGHT EYE; +ISOS30TA3 PO; +METO25TA3 PO; -NASAL SPRAY; +PANT40TA3 PO; +PLAV75TA29 PO; -TRAM50TA PO; -ZOFR4TAB PO; +statin PO
[2018-04-17 05:08] VITALS: BP 128/69; PULSE 76; RESP 16; TEMP 98; O2SAT 97
[2018-04-17] MEDS ORDERED: TRIMSOL RIGHT EYE (05:27)
[2018-04-17] MEDS ORDERED: CEPH-460 PO (05:27)
[2018-04-17] MEDS ORDERED: PROPARACAINE HCL 0.5% OPHT SOLN 15 ML BTL RIGHT EYE ONE (05:30)
[2018-04-17] MEDS ORDERED: CEPHALEXIN MONOHYDRATE 500 MG CAP PO ONE (05:30)
--- NOTE | 2018-04-17 05:34 | PD ---
HPI Chief Complaint: Pain: Acute or Chronic Time Seen by Provider: 05:16 Travel History International Travel<30 days: No Contact w/Intl Traveler<30days: No Traveled to known affect area: No History of Present Illness HPI Patient is a 52-year-old female who presents the emergency room with multiple complaints. Patient reports that she was seen in the emergency room on April 08, 2018 and was diagnosed with a corneal abrasion. Patient was given a prescription for erythromycin and has been using this, patient reports that this has not been helping her with her eye pain. Patient reports her eye still feels as if it was scratched. Patient denies any vision changes. Reports that she has changed her eye makeup and bought brand-new mascara. Patient does not use contacts or glasses. Patient also reports that she had a flea bite to her left lower extremity a few weeks ago, reports that at night she scratches the area of by and has developed an infection to her left anterior arriola. Patient reports that tetanus is up-to- date, denies any fevers or chills, patient requesting antibiotics for cellulitis. Patient also requesting work note, reports that she missed a few days of work and needs a note to return to work tomorrow. PFSH Past Medical History Autoimmune Disease: No Blood Disorders: No Anxiety: Yes Depression: Yes Heart Rhythm Problems: No Cancer: No Cardiac Catheterization: Yes Cardiovascular Problems: Yes High Cholesterol: Yes Chemotherapy: No Chest Pain: Yes Congestive Heart Failure: No Cerebrovascular Accident: Yes Coronary Artery Disease: Yes Diabetes: No Diminished Hearing: No Endocrine: No Gastrointestinal Disorders: Yes (ILEUS) GERD: Yes Genitourinary: Yes Headaches: Yes Hiatal Hernia: No Heparin Induced Thrombocytopen: No Hypertension: Yes Immune Disorder: No Implanted Vascular Access Dvce: No Kidney Stones: Yes Musculoskeletal: Yes (BULGING DISK, CHRONIC BACK PAIN, SCOLIOSIS) Neurologic: Yes Psychiatric: Yes Reproductive: No Respiratory: Yes Integumentary: Yes (CELLULITIS OF LEFT ANKLE) Migraines: Yes Radiation Therapy: No Renal Failure: No Thyroid Disease: No Ulcer: Yes (PEPTIC ) Tetanus Vaccination: Unknown Influenza Vaccination: Yes PNEUMOCCOCAL Vaccine (Year): 2 ?: Not Menopausal: Yes : 2 Para: 2 Past Surgical History Abdominal Surgery: Yes (CHOLECYSTECTOMY, APPENDECTOMY) Appendectomy: Yes Cardiac Surgery: No Cholecystectomy: Yes Coronary Artery Bypass Graft: No Ear Surgery: No Endocrine Surgery: No Eye Surgery: No Gynecologic Surgery: Yes (HYSTERECTOMY, OOPHRECTOMY) Hysterectomy: Yes Neurologic Surgery: No Oral Surgery: Yes (TONSILLECTOMY) Thoracic Surgery: No Tonsillectomy: Yes Other Surgery: Yes (INFARCTION TO SPLEEN) Family History Family Myocardial Infarction: Yes Social History Alcohol Use: No Tobacco Use: Yes (1/2 ppd) Substance Use: No (HX OF) Allergies-Medications (Allergen,Severity, Reaction): Coded Allergies: Iodinated Contrast- Oral and IV Dye (Verified Allergy, Severe, Anaphylaxis , 04/17/18) codeine (Verified Allergy, Severe, RASH, 04/17/18) Reported Meds & Prescriptions Reported Meds & Active Scripts Active Erythromycin Opth Oint 5 Mg/Gm Oint 1 Applic RIGHT EYE QID Pantoprazole (Pantoprazole Sodium) 40 Mg Tab 40 Mg PO DAILY Isosorbide Mononitrate ER (Isosorbide Mononitrate) 30 Mg Everardo 30 Mg PO DAILY@07 Atorvastatin (Atorvastatin Calcium) 40 Mg Tab 40 Mg PO DAILY Plavix (Clopidogrel Bisulfate) 75 Mg Tab 75 Mg PO DAILY Metoprolol Tartrate 25 Mg Tab 25 Mg PO BID Aspirin 81 Mg Chew 81 Mg CHEW DAILY 30 Days Reported [statin] 1 Tab PO DAILY Review of Systems General / Constitutional: No: Fever Eyes: Positive: Redness, Foreign Body Sensation, No: Blurred Vision, Photophobia, Drainage, Visual changes HENT: No: Headaches Cardiovascular: No: Chest Pain or Discomfort Respiratory: No: Shortness of Breath Gastrointestinal: No: Abdominal Pain Genitourinary: No: Dysuria Musculoskeletal: No: Pain Skin: No Rash Neurologic: No: Weakness Psychiatric: No: Depression Endocrine: No: Polydipsia Hematologic/Lymphatic: No: Easy Bruising Physical Exam Narrative GENERAL: Anxious SKIN: Focused skin assessment warm/dry. HEAD: Atraumatic. Normocephalic. EYES: Pupils equal and round. No scleral icterus. No injection or drainage. Patient had positive fluorescein uptake at 9:00, there are no foreign debrides or objects in the eye, EOMIs are intact, there is no hyphema, there is no hypopyon, there are no dendritic lesions ENT: No nasal bleeding or discharge. Mucous membranes pink and moist. NECK: Trachea midline. No JVD. CARDIOVASCULAR: Regular rate and rhythm. No murmur appreciated. RESPIRATORY: No accessory muscle use. Clear to auscultation. Breath sounds equal bilaterally. GASTROINTESTINAL: Abdomen soft, non-tender, nondistended. Hepatic and splenic margins not palpable. MUSCULOSKELETAL: No obvious deformities. No clubbing. No cyanosis. No edema. Patient with circumferential area of cellulitis which is 4 x 4 cm in diameter to left anterior arriola with no streaking NEUROLOGICAL: Awake and alert. No obvious cranial nerve deficits. Motor grossly within normal limits. Normal speech. PSYCHIATRIC: Appropriate mood and affect; insight and judgment normal. Data Data Last Documented VS Vital Signs Date Time Temp Pulse Resp B/P (MAP) Pulse Ox O2 Delivery O2 Flow Rate FiO2 04/17/18 05:08 98.0 76 16 128/69 (88) 97 Orders Orders Proparacaine 0.5% Opth Soln (Alcaine 0.5 (04/17/18 05:30) Cephalexin (Keflex) (04/17/18 05:30) [facility] Medical Decision Making Medical Screen Exam Complete: Yes Emergency Medical Condition: Yes Medical Record Reviewed: Yes Interpretation(s) Vital Signs Date Time Temp Pulse Resp B/P (MAP) Pulse Ox O2 Delivery O2 Flow Rate FiO2 04/17/18 05:08 98.0 76 16 128/69 (88) 97 Differential Diagnosis Conjunctivitis, corneal abrasion, cellulitis Narrative Course Patient returns with recurrence of corneal abrasion to the right eye, reports that erythromycin has not helped her with her symptoms. Patient did have fluorescein uptake at 9 o'clock position today, plan to change her antibiotics to polymyxin B with trimethoprim. Patient also with cellulitis to the left lower extremity, anterior arriola, will start her on Keflex. Patient's tetanus is up-to-date. Signs and symptoms of when to return to the emergency room was reviewed patient in detail. Diagnosis Primary Impression: Corneal abrasion Qualified Codes: S05.01XD - Injury of conjunctiva and corneal abrasion without foreign body, right eye, subsequent encounter Additional Impression: Cellulitis Qualified Codes: L03.116 - Cellulitis of left lower limb Patient Instructions: General Instructions Departure Forms: Tests/Procedures, Work Release Enter return to work date: April 18, 2018 Additional Instructions: Please follow-up with an fork repairer as well as your primary care doctor Return to the emergency room if symptoms worsen or progress Return to the emergency room as needed Please take all antibiotics as prescribed Scripts Cephalexin (Keflex) 500 Mg Cap 500 MG PO Q6H for Infection for 10 Days, #40 CAP 0 Refills Prov: Jenna Solis DO 04/17/18 Polymyxin B-Trimethoprim Opth Drops (Polymyxin B-Trimethoprim Opth Drops) 10,000 -0.1 Unit/Ml-% Soln 1 DROP RIGHT EYE Q6HR for Mgmt Bacterial Infection, #1 BOTTLE 0 Refills Prov: Jenna Solis DO 04/17/18 Disposition: 01 DISCHARGE HOME Condition: Stable Jenna Solis DO April 17, 2018 05:34
== END 2018-04-17 05:56 | disposition home or self-care (01) ==
LOC: PHED 05:03
DX: S05.01XD Injury of conjunctiva and corneal abrasion without foreign body, right eye, subsequent encounter (principal); L03.116 Cellulitis of left lower limb; I10 Essential (primary) hypertension; E78.00 Pure hypercholesterolemia, unspecified; K21.9 Gastro-esophageal reflux disease without esophagitis; I25.10 Atherosclerotic heart disease of native coronary artery without angina pectoris; X58.XXXD Exposure to other specified factors, subsequent encounter; Z86.79 Personal history of other diseases of the circulatory system; Z86.73 Personal history of transient ischemic attack (TIA), and cerebral infarction without residual deficits; Z87.19 Personal history of other diseases of the digestive system; Z87.448 Personal history of other diseases of urinary system; Z87.39 Personal history of other diseases of the musculoskeletal system and connective tissue; Z86.69 Personal history of other diseases of the nervous system and sense organs; Z86.59 Personal history of other mental and behavioral disorders
CPT/HCPCS: 99283

== ENCOUNTER 2018-05-12 16:25 | Emergency (ER) | payer SELFPAY ==
[~2018-05-12] VITALS: Ht 162.6 cm; Wt 72.0 kg
[~2018-05-12 16:25] MED LIST changes: +CEPH-460 PO; +TRIMSOL RIGHT EYE
[2018-05-12 16:48] VITALS: BP 149/66; PULSE 88; RESP 16; TEMP 98.4; O2SAT 99
--- NOTE | 2018-05-12 17:41 | RADRPT ---
EXAM DATE: 05/12/2018 5:21 PM EDT AGE/SEX: 53 years / Female INDICATIONS: Pain in left ankle and foot. CLINICAL DATA: This is the patient's initial encounter. Patient reports that signs and symptoms have been present for 1 day and indicates a pain score of 4/10. MEDICAL/SURGICAL HISTORY: None. None. COMPARISON: No prior exams available for comparison. FINDINGS: A transverse nondisplaced fracture is identified through the base of the fifth metatarsal. There is a djacent soft tissue swelling. Bony structures are otherwise intact. There is no significant arthropathy. CONCLUSION: Nondisplaced fracture at the base of the left fifth metatarsal. Electronically signed by: Pedro Dhillon MD 05/12/2018 5:40 PM EDT
[2018-05-12] MEDS ORDERED: ACETAMINOPHEN/HYDROcodone 325 MG/5 MG TAB PO ONE (17:45)
--- NOTE | 2018-05-12 17:47 | RADRPT ---
EXAM DATE: 05/12/2018 5:20 PM EDT AGE/SEX: 53 years / Female INDICATIONS: Pain in lateral portion of left foot, from twisting foot. CLINICAL DATA: This is the patient's initial encounter. Patient reports that signs and symptoms have been present for 2 days and indicates a pain score of 4/10. MEDICAL/SURGICAL HISTORY: None. None. COMPARISON: No prior exams available for comparison. FINDINGS: Fracture base of the fifth metatarsal. Near-anatomic alignment. No other fractures appreciated. CONCLUSION: Fracture base of the fifth metatarsal. Electronically signed by: Yovanny Barone MD 05/12/2018 5:45 PM EDT
[2018-05-12] MEDS ORDERED: NAPR500 PO (17:50)
[2018-05-12] MEDS ORDERED: NORC5TAB PO (17:56)
[2018-05-12] MEDS ORDERED: WALKER/ADULT/FO1 MIS (17:58)
--- NOTE | 2018-05-12 17:58 | PD ---
HPI Chief Complaint: Injury Time Seen by Provider: 16:56 Travel History International Travel<30 days: No Contact w/Intl Traveler<30days: No Traveled to known affect area: No History of Present Illness HPI 53-year-old female presents to the emergency department with complaint of left ankle and foot pain, swelling, bruising since yesterday after her foot slipped off the bottom step of stairs and she rolled her ankle injuring her ankle and her foot. She did not fall to the ground. She is on Plavix for history of stroke. She has right-sided weakness from the stroke. She has been ambulatory on the affected extremity. Has been taking Naprosyn, Aleve, BC powder, ibuprofen for symptom management. Rates pain 10/10. Worse with ambulation, palpation. Better at rest. No primary care provider. History of stroke and CT. Allergies to codeine and IV contrast. Has no other medical complaints. No other modifying factors or associated signs and symptoms. PFSH Past Medical History Autoimmune Disease: No Blood Disorders: No Anxiety: Yes Depression: Yes Heart Rhythm Problems: No Cancer: No Cardiac Catheterization: Yes Cardiovascular Problems: Yes High Cholesterol: Yes Chemotherapy: No Chest Pain: Yes Congestive Heart Failure: No Cerebrovascular Accident: Yes Coronary Artery Disease: Yes Diabetes: No Diminished Hearing: No Endocrine: No Gastrointestinal Disorders: Yes (ILEUS) GERD: Yes Genitourinary: Yes Headaches: Yes Hiatal Hernia: No Heparin Induced Thrombocytopen: No Hypertension: Yes Immune Disorder: No Implanted Vascular Access Dvce: No Kidney Stones: Yes Musculoskeletal: Yes (BULGING DISK, CHRONIC BACK PAIN, SCOLIOSIS) Neurologic: Yes Psychiatric: Yes Reproductive: No Respiratory: Yes Integumentary: Yes (CELLULITIS OF LEFT ANKLE) Migraines: Yes Radiation Therapy: No Renal Failure: No Thyroid Disease: No Ulcer: Yes (PEPTIC ) PNEUMOCCOCAL Vaccine (Year): 2 Menopausal: Yes : 2 Para: 2 Past Surgical History Abdominal Surgery: Yes (CHOLECYSTECTOMY, APPENDECTOMY) Appendectomy: Yes Cardiac Surgery: No Cholecystectomy: Yes Coronary Artery Bypass Graft: No Ear Surgery: No Endocrine Surgery: No Eye Surgery: No Gynecologic Surgery: Yes (HYSTERECTOMY, OOPHRECTOMY) Hysterectomy: Yes Neurologic Surgery: No Oral Surgery: Yes (TONSILLECTOMY) Thoracic Surgery: No Tonsillectomy: Yes Other Surgery: Yes (INFARCTION TO SPLEEN) Social History Alcohol Use: No Tobacco Use: Yes (1/2 ppd) Substance Use: No (HX OF) Allergies-Medications (Allergen,Severity, Reaction): Coded Allergies: Iodinated Contrast- Oral and IV Dye (Verified Allergy, Severe, Anaphylaxis , 05/12/18) codeine (Verified Allergy, Severe, RASH, 05/12/18) Reported Meds & Prescriptions Reported Meds & Active Scripts Active Walker/Adult/Folding (Device) 1 Mis Mis Ea .XX DIRECTED [place] (Hydrocodone-Acetaminophen) 5 Mg-325 Mg Tab 1 Tab PO Q4H PRN Isosorbide Mononitrate ER (Isosorbide Mononitrate) 30 Mg [place] 30 Mg PO DAILY@07 Atorvastatin (Atorvastatin Calcium) 40 Mg Tab 40 Mg PO DAILY Plavix (Clopidogrel Bisulfate) 75 Mg Tab 75 Mg PO DAILY Metoprolol Tartrate 25 Mg Tab 25 Mg PO BID Aspirin 81 Mg Chew 81 Mg CHEW DAILY 30 Days Reported Naprosyn (Naproxen) 500 Mg Tab 500 Mg PO BID Review of Systems Except as stated in HPI: all other systems reviewed are Neg Physical Exam Narrative GENERAL: Well-nourished, well-developed female patient, in no acute distress SKIN: Warm and dry. HEAD: Atraumatic. Normocephalic. EYES: Pupils equal and round. No scleral icterus. No injection or drainage. ENT: Mucosa pink and moist. Airway patent. NECK: Trachea midline. CARDIOVASCULAR: Regular rate. RESPIRATORY: No accessory muscle use. GASTROINTESTINAL: Flat. MUSCULOSKELETAL: Left lateral foot and ankle with edema, ecchymosis; without erythema; with tenderness on palpation; no obvious deformity; toes are pink and warm and was sensory intact; 2+ pedal pulse. Left lower extremity is supple and non-tense. no obvious deformities. No clubbing. No cyanosis. No edema. NEUROLOGICAL: Awake and alert. Oriented 3. No obvious cranial nerve deficits. Motor grossly within normal limits. Normal speech. PSYCHIATRIC: Appropriate mood and affect; insight and judgment normal. Data Data Last Documented VS Vital Signs Date Time Temp Pulse Resp B/P (MAP) Pulse Ox O2 Delivery O2 Flow Rate FiO2 05/12/18 16:48 98.4 88 16 149/66 (93) 99 Orders Orders Ankle, Complete ([id number]) (05/12/18 16:56) Foot, Complete ([id number]) (05/12/18 16:56) Acetamin-Hydrocod 325-5 Mg ([place] 5-325 (05/12/18 17:45) Ice/Cold Pack (05/12/18 17:33) Crutches (05/12/18 17:33) Ed Discharge Order (05/12/18 17:58) Mandatory Outpatient Referral (05/12/18 18:01) Boot Fracture (05/12/18 ) MDM Medical Decision Making Medical Screen Exam Complete: Yes Emergency Medical Condition: Yes Medical Record Reviewed: Yes Differential Diagnosis Fracture, sprain, injury Narrative Course 53-year-old female with left foot and ankle injury. [place], left foot x-ray, left ankle x-ray ordered. 1800: Left foot and ankle x-ray concluded: Foot X-Ray 05/12/181655 Signed Impressions: CONCLUSION: Nondisplaced fracture at the base of the left fifth metatarsal. Ankle X-Ray 05/12/181655 Signed Impressions: CONCLUSION: Fracture base of the fifth metatarsal. Discussed x-ray findings with the patient. Fracture boot ordered. Patient has history of stroke with right-sided weakness and the patient is not able to use crutches. Therefore we will did a fracture boot and I will prescribe the patient a walker. Mandatory outpatient referral ordered for patient to follow- up with [facility]. Instructed patient to follow-up with podiatry. [place] prescribed for home. Instructed patient to follow up with primary care provider. Patient verbalizes understanding and agreement with treatment plan. Patient is medically cleared and stable for discharge. Discussed reasons to return to the emergency department. Patient agrees with treatment plan. The patients vital signs are stable and the patient is stable for outpatient follow- up and treatment. Patient discharged home, stable and in no acute distress. Diagnosis Primary Impression: Fracture of left foot Qualified Codes: S92.902A - Unspecified fracture of left foot, initial encounter for closed fracture Referrals: [employer] Primary Care Physician Patient Instructions: Foot Fracture in Adults (ED), General Instructions Additional Instructions: Tylenol or ibuprofen as directed and as needed for pain and inflammation Rest, ice, compress, and elevate extremity to decrease pain and inflammation Splint for support; do not remove splint until cleared by [facility] Crutches/walker for support Avoid aggravating activity; increase activity as tolerated Follow-up with primary care provider Follow-up with [facility] within 1 week Return to the emergency department immediately with worsening of symptoms Med/Other Pt SpecificInfo: Prescription(s) given Scripts Walker/Adult/Folding (Walker/Adult/Folding) 1 Mis Mis EA .XX DIRECTED, #1 0 Refills Prov: Shalini Cueto 05/12/18 Hydrocodone-Acetaminophen ([place]) 5 Mg-325 Mg Tab 1 TAB PO Q4H Y for PAIN, #15 TAB 0 Refills Prov: Shalini Cueto 05/12/18 Disposition: 01 DISCHARGE HOME Condition: Stable Shalini Cueto May 12, 2018 17:58
== END 2018-05-12 18:43 | disposition home or self-care (01) ==
LOC: NEPK 16:25
DX: S92.355A Nondisplaced fracture of fifth metatarsal bone, left foot, initial encounter for closed fracture (principal); I69.351 Hemiplegia and hemiparesis following cerebral infarction affecting right dominant side; I25.10 Atherosclerotic heart disease of native coronary artery without angina pectoris; F17.200 Nicotine dependence, unspecified, uncomplicated; W10.9XXA Fall (on) (from) unspecified stairs and steps, initial encounter; Z79.02 Long term (current) use of antithrombotics/antiplatelets
CPT/HCPCS: 73610; 73630; 99283; L2114

== ENCOUNTER 2018-05-23 01:47 | Observation (INO) | payer SELFPAY ==
[2018-05-23] VITALS (9 sets, daily range): BP systolic 94–129; BP diastolic 47–77; PULSE 58–79; RESP 16–20; TEMP 96.6–98.4; O2SAT 96–99
[~2018-05-23 01:47] MED LIST changes: -CEPH-460 PO; -ERYTOIN10 RIGHT EYE; +NAPR500 PO; +NORC5TAB PO; -PANT40TA3 PO; -TRIMSOL RIGHT EYE; +WALKER/ADULT/FO1 MIS; -statin PO
[2018-05-23] MEDS ORDERED: SODIUM CHLORIDE 0.9% FLUSH 10 ML FLUSH IVF PRN (02:00)
[2018-05-23] MEDS ORDERED: ASPIRIN 81 MG CHEW TAB PO ONE (02:00)
[2018-05-23 02:28] LABS: AUTOMATED NEUTROPHIL # 5.1 TH/MM3 (1.8-7.7); BASOPHIL # 0.1 TH/MM3 (0-0.2); BASOPHIL % 0.6 % (0.0-2.0); EOSINOPHIL # 0.2 TH/MM3 (0-0.4); EOSINOPHIL % 2.3 % (0.0-4.0); HEMATOCRIT 37.8 % (35.0-46.0); HEMOGLOBIN 12.8 GM/DL (11.6-15.3); LYMPHOCYTE # 2.4 TH/MM3 (1.0-4.8); MEAN CELL VOLUME 92.2 FL (80.0-100.0); MEAN CORPUSCULAR HEMOGLOBIN 31.2 PG (27.0-34.0); MEAN CORPUSCULAR HGB CONC 33.9 % (32.0-36.0); MONO % 7.2 % (0.0-8.0); MONOCYTE # 0.6 TH/MM3 (0-0.9); NEUT % 61.9 % (16.0-70.0); PLATELET COUNT 324 TH/MM3 (150-450); RED CELL DISTRIBUTION WIDTH 13.7 % (11.6-17.2); WHITE BLOOD COUNT 8.4 TH/MM3 (4.0-11.0)
[2018-05-23 02:35] LABS: CHLORIDE 107 MEQ/L (98-107); SODIUM (NA) 138 MEQ/L (136-145)
[2018-05-23 02:37] LABS: CALCIUM 8.6 MG/DL (8.5-10.1)
[2018-05-23 02:38] LABS: BICARBONATE 23.7 MEQ/L (21.0-32.0); BLOOD UREA NITROGEN 21 MG/DL (7-18); GLUCOSE,RANDOM 97 MG/DL (74-106)
[2018-05-23 02:41] LABS: CREATININE 0.71 MG/DL (0.50-1.00); GLOMERULAR FILTRATION RATE 85 ML/MIN (>89); INTERNATIONAL NORMALIZED RATIO 1.2 RATIO; PROTHROMBIN TIME - PATIENT 12.6 SEC (9.8-11.6)
[2018-05-23 02:46] LABS: TROPONIN I LESS THAN 0.02 NG/ML (0.02-0.05)
--- NOTE | 2018-05-23 02:54 | RADRPT ---
EXAM DATE: 05/23/2018 2:28 AM EDT AGE/SEX: 53 years / Female INDICATIONS: Chest pain. CLINICAL DATA: This is the patient's initial encounter. Patient reports that signs and symptoms have been present for 1 day and indicates a pain score of 8/10. MEDICAL/SURGICAL HISTORY: . Myocardial infarction. Hypertension. Gastroesophageal reflux diseas e . Coronary artery stent. Hysterectomy. Appendectomy COMPARISON: [facility] – [place], CHEST PA & LAT, 03/24/2018. . FINDINGS: PA and lateral views of the chest demonstrate the lungs to be symmetrically aerated without evidence of mass, infiltrate or effusion. The cardiomediastinal contours are unremarkable. Osseous structures are intact. CONCLUSION: No acute cardiopulmonary disease. Electronically signed by: Aleks Shaw MD 05/23/2018 2:53 AM EDT
[2018-05-23] MEDS ORDERED: LORazepam 2 MG/ML VIAL IV PUSH SCH (03:00)
[2018-05-23] MEDS ORDERED: NITROGLYCERIN 2% OINT 1 GM PACKET TOPICAL ONE (03:00)
[2018-05-23] MEDS ORDERED: MORPHINE SULFATE 4 MG/ML INJ IV ONE (03:00)
--- NOTE | 2018-05-23 03:08 | PD ---
HPI . Chest pain Chief Complaint: Chest Pain Time Seen by Provider: 01:51 Travel History International Travel<30 days: No Contact w/Intl Traveler<30days: No Traveled to known affect area: No History of Present Illness HPI Patient presents with chief complaint of chest pain. She describes a heaviness in her chest which started about noon time. It has been persistent since that time. She rates it at 9/10. She has not noted any exacerbating or relieving factors. She has not taken anything for prior to presentation. PFSH Past Medical History Autoimmune Disease: No Blood Disorders: No Anxiety: Yes Depression: Yes Heart Rhythm Problems: No Cancer: No Cardiac Catheterization: Yes Cardiovascular Problems: Yes (IA, HTN, stents) High Cholesterol: Yes Chemotherapy: No Chest Pain: Yes Congestive Heart Failure: No Cerebrovascular Accident: Yes Coronary Artery Disease: Yes Diabetes: No Diminished Hearing: No Endocrine: No Gastrointestinal Disorders: Yes (ILEUS) GERD: Yes Genitourinary: Yes Headaches: Yes Hiatal Hernia: No Heparin Induced Thrombocytopen: No Hypertension: Yes Immune Disorder: No Implanted Vascular Access Dvce: No Kidney Stones: Yes Musculoskeletal: Yes (BULGING DISK, CHRONIC BACK PAIN, SCOLIOSIS) Neurologic: Yes Psychiatric: Yes Reproductive: No Respiratory: Yes Integumentary: Yes (CELLULITIS OF LEFT ANKLE) Migraines: Yes Radiation Therapy: No Renal Failure: No Thyroid Disease: No Ulcer: Yes (PEPTIC ) Tetanus Vaccination: Unknown Influenza Vaccination: No PNEUMOCCOCAL Vaccine (Year): 2 ?: Not Menopausal: Yes : 2 Para: 2 Past Surgical History Abdominal Surgery: Yes (CHOLECYSTECTOMY, APPENDECTOMY) Appendectomy: Yes Cardiac Surgery: Yes (stents placed ) Cholecystectomy: Yes Coronary Artery Bypass Graft: No Ear Surgery: No Endocrine Surgery: No Eye Surgery: No Gynecologic Surgery: Yes (HYSTERECTOMY, OOPHRECTOMY) Hysterectomy: Yes Neurologic Surgery: No Oral Surgery: Yes (TONSILLECTOMY) Thoracic Surgery: No Tonsillectomy: Yes Other Surgery: Yes (INFARCTION TO SPLEEN) Family History Family Myocardial Infarction: Yes Social History Alcohol Use: No Tobacco Use: Yes (1/2 ppd) Substance Use: No (HX OF) Allergies-Medications (Allergen,Severity, Reaction): Coded Allergies: Iodinated Contrast- Oral and IV Dye (Verified Allergy, Severe, Anaphylaxis , 05/23/18) codeine (Verified Allergy, Severe, RASH, 05/23/18) Reported Meds & Prescriptions Reported Meds & Active Scripts Active [place] (Hydrocodone-Acetaminophen) 5 Mg-325 Mg Tab 1 Tab PO Q4H PRN Isosorbide Mononitrate ER (Isosorbide Mononitrate) 30 Mg [place] 30 Mg PO DAILY@07 Atorvastatin (Atorvastatin Calcium) 40 Mg Tab 40 Mg PO DAILY Plavix (Clopidogrel Bisulfate) 75 Mg Tab 75 Mg PO DAILY Metoprolol Tartrate 25 Mg Tab 25 Mg PO BID Aspirin 81 Mg Chew 81 Mg CHEW DAILY 30 Days Review of Systems Except as stated in HPI: all other systems reviewed are Neg Cardiovascular: Positive: Chest Pain or Discomfort Respiratory: No: Shortness of Breath Gastrointestinal: No: Nausea, Vomiting Neurologic: Positive: Slurred Speech Physical Exam Narrative GENERAL: Awake and alert. Anxious appearing. SKIN: warm/dry. HEAD: Normocephalic. Atraumatic. EYES: Pupils equal and round. Extraocular movements are intact. ENT: Mucous membranes pink and moist. NECK: Supple. Full range of motion without pain.. CARDIOVASCULAR: Regular rate and rhythm. Heart sounds normal. RESPIRATORY: No accessory muscle use. Clear to auscultation. Breath sounds equal bilaterally. MUSCULOSKELETAL: No obvious deformities. Normal muscle tone. NEUROLOGICAL: Awake and alert. Normal speech. Normal and symmetric wrinkling of the forehead, closing of the eyes, smile, protruding of the tongue his harness and bag inspector strengths are full and equal. [id number] exam is intact. Negative pronator drift. Negative leg drift. Toes are downgoing bilaterally. PSYCHIATRIC: Appropriate mood and affect; insight and judgment normal. Data Data Last Documented VS Vital Signs Date Time Temp Pulse Resp B/P (MAP) Pulse Ox O2 Delivery O2 Flow Rate FiO2 05/23/18 02:15 18 97 Room Air 05/23/18 01:59 98.4 79 109/77 (88) Orders Orders Electrocardiogram (05/23/18 01:51) Basic Metabolic Panel (Bmp) (05/23/18 01:51) Complete Blood Count With Diff (05/23/18 01:51) Magnesium (Mg) (05/23/18 01:51) Prothrombin Time / Inr (Pt) (05/23/18 01:51) Act Partial Throm Time (Ptt) (05/23/18 01:51) Troponin I (05/23/18 01:51) Ecg Monitoring (05/23/18 01:51) Iv Access Insert/Monitor (05/23/18 01:51) Oximetry (05/23/18 01:51) Aspirin Chew (Aspirin Chew) (05/23/18 02:00) Sodium Chloride 0.9% Flush (Ns Flush) (05/23/18 02:00) Chest, Pa & Lat (05/23/18 01:51) Cath For Specimen (05/23/18 02:07) Drug Screen, Random Urine (05/23/18 02:07) Nitroglycerin 2% Oint (Nitroglycerin 2% (05/23/18 03:00) Morphine Inj (Morphine Inj) (05/23/18 03:00) Lorazepam Inj (Ativan Inj) (05/23/18 03:00) Admit Order (Ed Use Only) (05/23/18 ) Clinical Data Associate / Telemetry [id number] (05/23/18 03:28) Vital Signs (Adult) Q4H (05/23/18 03:28) Diet Npo (05/23/18 Breakfast) Diet Heart Healthy (05/23/18 Breakfast) Activity Oob With Assistance (05/23/18 03:28) Activity Bed Rest With Brp (05/23/18 03:28) Vital Signs (Adult) Q4H (05/23/18 03:28) Cardiac Rhythm .As Directed (05/23/18 03:28) Notify Dr: Other .PRN (05/23/18 03:28) Notify Dr. Parameters (05/23/18 03:28) Troponin I (05/23/18 05:00) Troponin I (05/23/18 08:00) Electrocardiogram (05/23/18 05:00) Electrocardiogram (05/23/18 08:00) ^ Obtain (05/23/18 03:28) Morphine Inj (Morphine Inj) (05/23/18 03:30) Clinical Data Associate / Telemetry [id number] (05/23/18 03:28) Labs Laboratory Tests Test 05/23/18 02:12 05/23/18 02:40 White Blood Count 8.4 TH/MM3 Red Blood Count 4.10 MIL/MM3 Hemoglobin 12.8 GM/DL Hematocrit 37.8 % Mean Corpuscular Volume 92.2 FL Mean Corpuscular Hemoglobin 31.2 PG Mean Corpuscular Hemoglobin Concent 33.9 % Red Cell Distribution Width 13.7 % Platelet Count 324 TH/MM3 Mean Platelet Volume 8.0 FL Neutrophils (%) (Auto) 61.9 % Lymphocytes (%) (Auto) 28.0 % Monocytes (%) (Auto) 7.2 % Eosinophils (%) (Auto) 2.3 % Basophils (%) (Auto) 0.6 % Neutrophils # (Auto) 5.1 TH/MM3 Lymphocytes # (Auto) 2.4 TH/MM3 Monocytes # (Auto) 0.6 TH/MM3 Eosinophils # (Auto) 0.2 TH/MM3 Basophils # (Auto) 0.1 TH/MM3 CBC Comment DIFF FINAL Differential Comment Prothrombin Time 12.6 SEC Prothromb Time International Ratio 1.2 RATIO Activated Partial Thromboplast Time 29.7 SEC Blood Urea Nitrogen 21 MG/DL Creatinine 0.71 MG/DL Random Glucose 97 MG/DL Calcium Level 8.6 MG/DL Magnesium Level 2.0 MG/DL Sodium Level 138 MEQ/L Potassium Level 3.5 MEQ/L Chloride Level 107 MEQ/L Carbon Dioxide Level 23.7 MEQ/L Anion Gap 7 MEQ/L Estimat Glomerular Filtration Rate 85 ML/MIN Troponin I LESS THAN 0.02 NG/ML Urine Opiates Screen POS Urine Barbiturates Screen NEG Urine Amphetamines Screen POS Urine Benzodiazepines Screen POS Urine Cocaine Screen POS Urine Cannabinoids Screen POS MDM Medical Decision Making Medical Screen Exam Complete: Yes Emergency Medical Condition: Yes Medical Record Reviewed: Yes (This patient has had previous coronary artery disease and is status post stenting on 2 separate occasions, 2014 and then again in March 2018. She has a history of cocaine abuse. She also has a continuing history of tobacco abuse. Other medical problems include hypertension and hyperlipidemia.) Interpretation(s) EKG shows normal sinus rhythm. Her EKG is unchanged from previous. Differential Diagnosis Differential diagnosis of chest pain includes but is not limited to musculoskeletal pain, pulmonary embolism, acute coronary syndrome, pneumonia, pleurisy Narrative Course Patient presents with a chief complaint of chest pain. She does have a history of known coronary artery disease. She has had stents placed in 2014 and then again in March 2018. A chest pain workup has been initiated. She has been given aspirin. She has also been given morphine, Nitropaste and Ativan. I anticipate and eventual admission to the chest pain center for further evaluation. Last Impressions Chest X-Ray 05/23/18 0151 Signed Impressions: CONCLUSION: No acute cardiopulmonary disease. Chest x-ray was independently reviewed by me. CBC & BMP Diagram 05/23/18 02:12 Calcium Level 8.6, Magnesium Level 2.0 trop < 0.02 drug screen positive for opiates, amphetamines, benzodiazepines, cocaine and THC This patient is certainly at risk for coronary artery disease. She has a history of coronary artery disease. She continues to smoke and abuse cocaine and amphetamines. Therefore, I will request an admission to the chest pain center for further evaluation. Physician Communication Physician Communication Dr Bhardwaj Diagnosis Primary Impression: Chest pain Qualified Codes: R07.9 - Chest pain, unspecified Additional Impressions: Polysubstance abuse Nicotine dependence Qualified Codes: F17.210 - Nicotine dependence, cigarettes, uncomplicated Admitting Information Admitting Physician Requests: Observation Condition: Stable Pamela Herrera MD May 23, 2018 03:08
[2018-05-23] MEDS ORDERED: MORPHINE SULFATE 4 MG/ML INJ IV PUSH PRN (03:30)
[2018-05-23] MEDS ORDERED: ASPIRIN 81 MG CHEW TAB CHEW SCH (09:00)
[2018-05-23] MEDS ORDERED: ATORVASTATIN 40 MG TAB PO SCH (09:00)
[2018-05-23] MEDS ORDERED: CLOPIDOGREL 75 MG TAB PO SCH (09:00)
--- NOTE | 2018-05-23 09:30 | HHI.DCPOC ---
Discharge Care Plan Diagnosis: (1) Chest pain Goals to Promote Your Health * To prevent worsening of your condition and complications * To maintain your health at the optimal level Directions to Meet Your Goals Take your medications as prescribed Follow your dietary instruction Follow activity as directed Keep your appointments as scheduled Take your immunizations and boosters as scheduled If your symptoms worsen call your PCP, if no PCP go to Urgent Care Center or Emergency Room Smoking is Dangerous to Your Health. Avoid second hand smoke Call the 24-hour hour crisis hotline for domestic abuse at [facility] May 23, 2018 09:30
--- NOTE | 2018-05-23 09:47 | HHI.HP ---
[facility] Primary Care Physician No Primary Care Physician Admission Diagnosis chest pain Diagnoses: (1) Chest pain Diagnosis: Principal Chief Complaint: Chest pain Travel History International Travel<30 Days: No Contact w/Intl Traveler <30 Da: No Traveled to Known Affected Are: No History of Present Illness 53-year-old female with known history of hypertension, hypovolemia, coronary disease status post stenting, polysubstance abuse who presented to emergency department for chest discomfort. Upon evaluating the patient this morning she appear to be highly medicated. Patient had received morphine 4 mg, Ativan 2 mg early this morning as well as the patient tested positive for opiates, amphetamines, benzodiazepines, cocaine, cannabinoids on her drug screen. Was able to arouse the patient enough in order to answer questions. Patient indicates that she has been experiencing chest discomfort over the left side of the chest for months. It is been intermittent without any associated nausea, vomiting, diaphoresis, radiation to neck, back, shoulder, arm. Denied any shortness of breath or dyspnea. Patient states that she has under a lot of stress because her son's anniversary date is coming up. Patient openly admits to polysubstance abuse, smoking crack. She openly admits that she is noncompliant. She has not followed up with a instrument and electrical technician since her last discharge. Patient does have multiple evaluations for chest pain within the last year. In January she did get admitted to the chest pain center in which she underwent a myocardial perfusion study which did not show any ischemia. Patient did re-presented to the hospital and March in which she was admitted to the chest pain center again and subsequently was admitted to the hospitalist and cardiology consult. Patient did undergo echocardiogram which did show ejection fraction 55-60%, normal left ventricular function. Patient did undergo a cardiac catheterization at that time in which she had 80% stenosis of the distal right coronary artery. Patient did have a stent placed at that time was 0% residual as well as balloon angioplasty of the PDA branch. Patient's compliance is questionable about her cardiac medications. Patient has not followed up with the instrument and electrical technician since her admission in March. Patient did have workup done in the emergency department this visit and had normal troponins with unremarkable EKG. Is recommended by the ER physician that the patient be observed in the chest pain center. Review of Systems Cardiovascular: COMPLAINS OF: Chest pain Except as stated in HPI: all other systems reviewed are Neg Past Family Social History Past Medical History Hypertension Hyperlipidemia Coronary disease status post stenting Polysubstance abuse Anxiety disorder Chronic back pain Narcotic dependency History of CVA in 2014 Gastroesophageal reflux Past Surgical History Cardiac catheterization with stenting Hysterectomy Cholecystectomy Splenic surgery Appendectomy Tonsillectomy Reported Medications Reported Meds & Active Scripts Active [place] (Hydrocodone-Acetaminophen) 5 Mg-325 Mg Tab 1 Tab PO Q4H PRN Isosorbide Mononitrate ER (Isosorbide Mononitrate) 30 Mg Everardo 30 Mg PO DAILY@07 Atorvastatin (Atorvastatin Calcium) 40 Mg Tab 40 Mg PO DAILY Plavix (Clopidogrel Bisulfate) 75 Mg Tab 75 Mg PO DAILY Metoprolol Tartrate 25 Mg Tab 25 Mg PO BID Aspirin 81 Mg Chew 81 Mg CHEW DAILY 30 Days Allergies: Coded Allergies: Iodinated Contrast- Oral and IV Dye (Verified Allergy, Severe, Anaphylaxis , 05/23/18) codeine (Verified Allergy, Severe, RASH, 05/23/18) Family History Family history reviewed and significant for sister with myocardial infarction, family history of kidney disease and kidney cancer. Social History Patient continues smoke a half a pack of cigarettes a day. There is no indication of any alcohol use. However patient with polysubstance abuse with continued to smoke cocaine and amphetamines. Urine drug screen positive for opiates, amphetamines, benzodiazepines, cocaine, cannabinoids Physical Exam Vital Signs Vital Signs Date Time Temp Pulse Resp B/P (MAP) Pulse Ox O2 Delivery O2 Flow Rate FiO2 05/23/18 07:45 96.8 59 20 94/63 (73) 96 05/23/18 04:30 62 05/23/18 04:05 97.2 71 18 113/68 (83) 99 05/23/18 03:50 05/23/18 03:49 58 16 129/47 (74) 98 Room Air 05/23/18 02:15 18 97 Room Air 05/23/18 02:13 96 Room Air 05/23/18 01:59 98.4 79 18 109/77 (88) 96 Physical Exam GENERAL: Well-developed, well-nourished, in no acute distress. alert and orientated HEENT: Head is normocephalic without any lesions or masses noted. Facial features are symmetric. Eyes: Pupils equal round reactive to light. Extraocular muscles are intact. Conjunctivae were clear. Oropharyngeal: Pharynx without any erythema edema. Tongue is midline without deviation. Buccal mucosa is moist without any masses or lesions NECK: Supple without any masses. Trachea midline no deviation. No JVD, no bruits are appreciated CARDIAC: Regular rhythm, regular rate. S1/S2 are heard. No murmurs gallops or rubs. LUNGS: Clear to auscultation bilaterally. No wheeze, rhonchi or rales. No use of accessory muscles on inspiration or expiration. ABDOMEN: Soft, nontender. Nondistended. Bowel sounds heard in all 4 quadrants. No organomegaly or masses. Negative rebound, negative guarding EXTREMITIES: No edema, pulses are equal bilaterally. No cyanosis or clubbing. Patient is wearing a walking boot on the left lower extremity NEUROLOGY: Mood and affect appear appropriate. Cranial nerves II through XII grossly intact. Muscle strength 5/5 in upper and lower extremities bilaterally. Deep tendon reflexes are 2+ in upper and lower extremities bilaterally. Laboratory Laboratory Tests Test 05/23/18 02:12 05/23/18 02:40 05/23/18 06:06 White Blood Count 8.4 Red Blood Count 4.10 Hemoglobin 12.8 Hematocrit 37.8 Mean Corpuscular Volume 92.2 Mean Corpuscular Hemoglobin 31.2 Mean Corpuscular Hemoglobin Concent 33.9 Red Cell Distribution Width 13.7 Platelet Count 324 Mean Platelet Volume 8.0 Neutrophils (%) (Auto) 61.9 Lymphocytes (%) (Auto) 28.0 Monocytes (%) (Auto) 7.2 Eosinophils (%) (Auto) 2.3 Basophils (%) (Auto) 0.6 Neutrophils # (Auto) 5.1 Lymphocytes # (Auto) 2.4 Monocytes # (Auto) 0.6 Eosinophils # (Auto) 0.2 Basophils # (Auto) 0.1 CBC Comment DIFF FINAL Differential Comment Prothrombin Time 12.6 Prothromb Time International Ratio 1.2 Activated Partial Thromboplast Time 29.7 Blood Urea Nitrogen 21 Creatinine 0.71 Random Glucose 97 Calcium Level 8.6 Magnesium Level 2.0 Sodium Level 138 Potassium Level 3.5 Chloride Level 107 Carbon Dioxide Level 23.7 Anion Gap 7 Estimat Glomerular Filtration Rate 85 Troponin I LESS THAN 0.02 LESS THAN 0.02 Urine Opiates Screen POS Urine Barbiturates Screen NEG Urine Amphetamines Screen POS Urine Benzodiazepines Screen POS Urine Cocaine Screen POS Urine Cannabinoids Screen POS Result Diagram: 05/23/1821105/23/18211 [place] VTE Risk Assessment Caprini VTE Risk Assessment: No/Low Risk (score <= 1) Caprini Risk Assessment Model Point Value = 1 Point Value = 2 Point Value = 3 Point Value = 5 Age 41-60 Minor surgery BMI > 25 kg/m2 Swollen legs Varicose veins or History of unexplained or recurrent spontaneous Oral contraceptives or hormone replacement Sepsis (< 1 month) Serious lung disease, including pneumonia (< 1 month) Abnormal pulmonary function Acute myocardial infarction Congestive heart failure (< 1 month) History of inflammatory bowel disease Medical patient at bed rest Age 61-74 Arthroscopic surgery Major open surgery (> 45 min) Laparoscopic surgery (> 45 min) Malignancy Confined to bed (> 72 hours) Immobilizing plaster cast Central venous access Age >= 75 History of VTE Family history of VTE Factor V Leiden Prothrombin [id number] Lupus anticoagulant Anticardiolipin antibodies Elevated serum homocysteine Heparin-induced thrombocytopenia Other congenital or acquired thrombophilia Stroke (< 1 month) Elective arthroplasty Hip, pelvis, or leg fracture Acute spinal cord injury (< 1 month) Prophylaxis Regimen Total Risk Factor Score Risk Level Prophylaxis Regimen 0-1 Low Early ambulation 2 Moderate Order ONE of the following: *Sequential Compression Device (SCD) *Heparin 5000 units SQ BID 3-4 Higher Order ONE of the following medications: *Heparin 5000 units SQ TID *Enoxaparin/Lovenox 40 mg SQ daily (WT < 150 kg, CrCl > 30 mL/min) *Enoxaparin/Lovenox 30 mg SQ daily (WT < 150 kg, CrCl > 10-29 mL/min) *Enoxaparin/Lovenox 30 mg SQ BID (WT < 150 kg, CrCl > 30 mL/min) AND/OR *Sequential Compression Device (SCD) 5 or more Highest Order ONE of the following medications: *Heparin 5000 units SQ TID (Preferred with Epidurals) *Enoxaparin/Lovenox 40 mg SQ daily (WT < 150 kg, CrCl > 30 mL/min) *Enoxaparin/Lovenox 30 mg SQ daily (WT < 150 kg, CrCl > 10-29 mL/min) *Enoxaparin/Lovenox 30 mg SQ BID (WT < 150 kg, CrCl > 30 mL/min) AND *Sequential Compression Device (SCD) Assessment and Plan Assessment and Plan Chest pain, atypical -Patient with risk factors to include age, hypertension, hyperlipidemia, coronary artery disease, tobacco use -Patient has been ruled out for acute coronary event with serial cardiac enzymes that are negative, -Serial EKGs reviewed by myself which shows normal sinus rhythm without any changes -Patient has had recent myocardial perfusion study in January 2018 which was unremarkable for any ischemia. Patient has also undergone recent cardiac catheterization in March 2018 with angioplasty and stenting. -Patient has been noncompliant with outpatient follow-up. She has not followed up with cardiology since her last catheterization. Patient was counseled extensively on the need to follow-up with cardiology for continued care -Patient counseled on abstinence from her polysubstance abuse. Notified her that if she continues her lifestyle with smoking crack ,amphetamines and her polysubstance abuse she will likely succumb to an early . -Continue home medications to include aspirin, Plavix, beta-kaia, nitrate, statin Polysubstance abuse -Patient counseled on abstinence and cessation Hypertension, hyperlipidemia, coronary disease -Home medications have been continued DVT prevention -Low risk, early ambulation Discharge disposition Discharge home in stable condition Activity: [employer]. Diet: Healthy heart diet Medication per medication reconciliation Follow-up with primary medical doctor in 1 week Discussed Condition With Patient, Dr. Pompa, nursing staff, charge nurse Problem Qualifiers (1) Chest pain: Qualified Codes: R07.9 - Chest pain, unspecified Hussain Jewell May 23, 2018 09:47
--- NOTE | 2018-05-24 13:35 | EKG ---
Date Performed: 05/23/2018 Time Performed: 05:06:53 PTAGE: 53 years EKG: Sinus rhythm NORMAL ECG Since PREVIOUS TRACING , no significant change noted PREVIOUS TRACIN05/23/2018 01.56 DOCTOR: Ciro Holder Interpretating Date/Time 05/24/2018 13:34:47
--- NOTE | 2018-05-24 14:37 | EKG ---
Date Performed: 05/23/2018 Time Performed: 01:56:13 PTAGE: 53 years EKG: NORMAL Sinus rhythm NONDIAGNOSTIC Q-WAVE CHANGES IN INFERIOR LEADS, PROBABLY NO CHANGE FROM THE PRIOR. EARLY REPOLARIZAT ION LESS PROMINENT COMPARED TO PRIOR TRACING. ABNORMAL ECG PREVIOUS TRACING : 03/27/2018 04.37 DOCTOR: Ciro Holder Interpretating Date/Time 05/24/2018 14:37:24
== END 2018-05-23 17:11 | disposition home or self-care (01) ==
LOC: PHED 01:47 → PHEDA 03:33 → PH3A 04:00
PROVIDERS: ADMIT Hospitalist; ATTEND Hospitalist
DX: R07.9 Chest pain, unspecified (principal); E78.00 Pure hypercholesterolemia, unspecified; I10 Essential (primary) hypertension; F14.10 Cocaine abuse, uncomplicated; F11.20 Opioid dependence, uncomplicated; F17.210 Nicotine dependence, cigarettes, uncomplicated; K21.9 Gastro-esophageal reflux disease without esophagitis; F41.9 Anxiety disorder, unspecified; F32.9 Major depressive disorder, single episode, unspecified; I25.2 Old myocardial infarction; I25.10 Atherosclerotic heart disease of native coronary artery without angina pectoris; K56.7 Ileus, unspecified; M41.9 Scoliosis, unspecified; M54.9 Dorsalgia, unspecified; G89.29 Other chronic pain; Z91.19 Patient's noncompliance with other medical treatment and regimen; L03.116 Cellulitis of left lower limb; G43.909 Migraine, unspecified, not intractable, without status migrainosus; R94.31 Abnormal electrocardiogram [ECG] [EKG]; E78.5 Hyperlipidemia, unspecified; Z95.5 Presence of coronary angioplasty implant and graft; Z86.73 Personal history of transient ischemic attack (TIA), and cerebral infarction without residual deficits
CPT/HCPCS: 71046; 80048; 80307; 83735; 84484; 85025; 85610; 85730; 93005; 96374; 96375; 99285; G0378; J2060; J2270